=== PATIENT | male | born 1945 | race Caucasian/White ===

== ENCOUNTER 2021-10-11 22:27 | Inpatient (IN) | payer OTHER, MEDICAID, SELFPAY ==
--- NOTE | ~2021-10-11 | XR_ITS ---
EXAMINATION: XR CHEST CLINICAL INFORMATION: Check NG tube placement. COMPARISON: Chest 10/12/2021 TECHNIQUE: Frontal view of the chest was obtained. FINDINGS: The lungs are hypoexpanded but clear. The heart size and pulmonary vascularity is normal. There is a new enteric tube with its tip below the diaphragm in the stomach. No gross bony abnormality is seen. XR/XR chest 1V IMPRESSION: Hypoexpanded lungs without acute process. New enteric tube tip is below the diaphragm in the stomach.
--- NOTE | ~2021-10-11 | XR_ITS ---
EXAMINATION: XR CHEST CLINICAL INFORMATION: Enteric tube placement COMPARISON: Earlier on same day TECHNIQUE: AP portable view of the chest was obtained. FINDINGS: Enteric catheter seen traversing to the stomach with some contact gas within the distal aspect of it. There is an intermittent marker on the distal aspect of the tube. Contrast is seen within the distal catheter and stomach. No acute parenchymal disease is seen. No pneumothorax or pleural effusion. Heart normal size. No evidence of pulmonary edema.. XR/XR chest 1V IMPRESSION: Enteric catheter in place. No significant acute parenchymal disease.
--- NOTE | ~2021-10-11 | CT_ITS ---
EXAMINATION: CT ABDOMEN AND PELVIS WITHOUT CONTRAST CLINICAL INFORMATION: Abdominal pain. Nausea and vomiting. COMPARISON: None TECHNIQUE: Multidetector volumetric imaging was performed from the superior aspect of the liver through the pubic symphysis. Sagittal and coronal reformatted images were obtained on the technologist's workstation. This CT examination was performed using dose optimization techniques as appropriate, variously including the following: *Automated exposure control *Adjustment of mA and/or kV according to patient size (this includes techniques or standardized protocols for targeted exams where dose is matched to indication/reason for exam; i.e. extremities or head) *Use of iterative reconstruction technique DLP: 1287 mGy-cm FINDINGS: LUNG BASES: Basilar atelectasis. Normal heart size. LIVER, GALLBLADDER, AND BILIARY TREE: The liver is normal in size and shape with heterogeneously decreased attenuation. No focal hepatic lesion or biliary ductal dilatation is present. The gallbladder is unremarkable with no evidence of radiopaque gallstones, gallbladder wall thickening, or obvious pericholecystic inflammatory changes. PANCREAS: Mild fatty atrophy with no focal abnormality. SPLEEN: Unremarkable. ADRENAL GLANDS: Unremarkable. KIDNEYS AND URETERS: The kidneys are normal in size, shape, and attenuation. No hydronephrosis, hydroureter, or calculi seen. No perinephric stranding. Simple bilateral renal cysts noted. No follow-up imaging recommended. BLADDER: Unremarkable. GASTROINTESTINAL TRACT: Distended stomach without wall thickening. The proximal small bowel is also dilated. There is a ventral abdominal wall hernia containing a portion of small bowel wall. This is not obstructing. Anastomosis seen in the small bowel of the anterior abdomen, also not the source of an obstruction. There is gradual change in caliber to decompressed small bowel. There is stool throughout the colon with scattered gas in the colon. ABDOMINAL WALL: Scattered foci of gas in the subcutaneous tissues. Ventral abdominal wall hernia containing a portion of the small bowel wall. LYMPH NODES: Normal. VASCULAR: Normal caliber aorta with mild to moderate atherosclerotic calcification. PELVIC VISCERA: The prostate and seminal vesicles are unremarkable. OSSEOUS STRUCTURES: Bilateral total hip arthroplasties without evidence of failure. Moderate degenerative changes of the spine. CT/CT abdomen pelvis wo con IMPRESSION: Distended stomach and proximal small bowel with gradual transition to decompressed small bowel. Gas and stool throughout the colon. This appearance is not convincing for obstruction, although early or partial obstruction is possible. Fleischner guidelines were followed.
--- NOTE | ~2021-10-11 | XR_ITS ---
EXAMINATION: XR ABDOMEN KUB CLINICAL INDICATION: Partial small bowel obstruction. COMPARISON: 10/12/2021 TECHNIQUE: AP view of the abdomen. FINDINGS: Contrast noted throughout the colon. Gas-filled small bowel in the central abdomen, similar in appearance to previous. Enteric tube terminates in the stomach. Contrast in the bladder. Degenerative changes of the spine. Bilateral total hip arthroplasties. XR/XR KUB IMPRESSION: Persistent small bowel gaseous dilatation in the central abdomen. Contrast throughout the colon noted.
--- NOTE | ~2021-10-11 | XR_ITS ---
EXAMINATION: XR CHEST CLINICAL INFORMATION: NG tube placement COMPARISON: Same day and October 12, 2021 TECHNIQUE: AP portable view of the chest was obtained. FINDINGS: There is again noted to be left lower lobe disease. Enteric catheter is seen traversing to the stomach with contrast and [stomach however it appears be looped back on itself lying in the thoracic esophagus. Heart normal size. No evidence of pulmonary edema. No pneumothorax or significant pleural effusion. XR/XR chest 1V IMPRESSION: Enteric catheter seen traversing into the stomach but then appears to be traversing backup into the distal thoracic esophagus. This critical result was discussed with Dr. Olson at 11:16 AM on October 17, 2021 and it was ascertained that the content and urgency of the report was understood at the time of direct communication.
--- NOTE | ~2021-10-11 | FL_ITS ---
EXAMINATION: FL UPPER GI AIR-CONTRAST STUDY AND BARIUM SWALLOW CLINICAL INFORMATION: Abdominal pain, nausea and vomiting. Globus sensation. COMPARISON: CT abdomen and pelvis 10/12/2021. TECHNIQUE: Single contrast GI study was performed with patient lying down. FINDINGS: Patient is unable to stand up. Routine upper GI air-contrast study was performed in semiupright view with patient lying supine. There is normal transition of thin barium from the oral cavity through the pharynx and esophagus and into the stomach without any evidence of obstruction, narrowing or stricture. There is prominent cricoesophageal sphincter present throughout the exam. The course, caliber and the peristalsis of the esophagus are normal. The stomach and the duodenum are distended with slow transition seen through the stomach and the duodenum. Delayed image was obtained through the abdomen and contrast seen within the proximal jejunum. Recommend delayed small bowel follow-through KUB in 4 to 6 hours. FL/FL upper GI w Ba Swallow IMPRESSION: Prominent cricoesophageal sphincter indenting the cervical esophagus. No obstruction. No laryngeal penetration or aspiration. Distended stomach and proximal duodenal and jejunal loops suspicious for at least partial obstruction in the proximal jejunum. There are segments of small bowel narrowing on the previous CT abdomen exam 10/12/2021. Recommend KUB in 4 to 6 hours. FLUOROSCOPY TIME: 2.2 minutes. DOSE AREA PRODUCT: 31.526 Gy-cm2. IMAGES: 41.
--- NOTE | ~2021-10-11 | XR_ITS ---
EXAMINATION: XR CHEST CLINICAL INFORMATION: Shortness of breath COMPARISON: None TECHNIQUE: Frontal view of the chest was obtained. FINDINGS: Lung volumes are low. Streaky opacities of the lung bases favor atelectasis. No pleural effusion or pneumothorax. The cardiomediastinal silhouette is within normal limits. XR/XR chest 1V IMPRESSION: Low lung volumes with basilar atelectasis.
--- NOTE | ~2021-10-11 | XR_ITS ---
EXAMINATION: XR ABDOMEN KUB CLINICAL INDICATION: Partial small bowel obstruction COMPARISON: 10/13/2021 TECHNIQUE: AP view of the abdomen. FINDINGS: There is residual contrast seen in the normal caliber colon and rectum. Loops of small bowel are mildly dilated. No evidence of free air. Patient is status post bilateral hip replacement. XR/XR KUB IMPRESSION: Residual partial small bowel obstruction
--- NOTE | ~2021-10-11 | XR_ITS ---
EXAMINATION: XR ABDOMEN KUB CLINICAL INDICATION: Follow-up to barium study of yesterday in patient with SBO. COMPARISON: October 17, 2021 TECHNIQUE: AP view of the abdomen. FINDINGS: There remains some small bowel distention similar to previous day's study. Since the previous study there has been progression of barium into the colon where it is seen throughout the ascending, transverse, and proximal descending colon. There is a small amount of contrast now seen getting into the sigmoid colon with small amount of contrast overlying the region of the rectosigmoid. XR/XR KUB IMPRESSION: Progression of barium into the colon as described with some persistent distention multiple loops of small bowel.
[2021-10-11 22:38] VITALS: BP 150/88; PULSE 95; O2SAT 95
[2021-10-11 22:41] VITALS: BP 115/68; PULSE 95; RESP 20; TEMP 36.8; O2SAT 90; BMI 41.5
--- NOTE | 2021-10-11 23:37 | ED.NAVMDI ---
HPI - Nausea/Vomiting/Diarrhea General Chief complaint: Nausea/Vomiting/Diarrhea Stated complaint: vomiting Time Seen by Provider: 10/11/21 23:22 History of Present Illness HPI Narrative: Patient is a 76-year-old male with previous abdominal surgery history of prostate cancer presents today with having abdominal pain nausea vomiting since yesterday. Multiple episodes. Patient claims that when he vomits it was very small amount of blood. Patient did not notice any blood in the stool. Has abdominal pain diffuse over the entire abdomen. Patient is unsure what kind of surgery it had. He had had the surgeries and done at [facility]. There is no cough no congestion or upper respiratory symptoms patient claims he has a history of prostate cancer. Not on any blood thinners. No diaphoresis. Feels very weak. Related Data Allergies Allergy/AdvReac Type Severity Reaction Status Date / Time No Known Allergies Allergy Verified 10/11/21 23:34 Review of Systems Review of Systems: Positive generalized malaise weakness Yes all other systems are reviewed and are negative PMFSH Past Medical History Attestation statement: The following information was validated with the patient. Medical History Arthritis Asthma Cerebral palsy Constipation Neoplasm of prostate Social History Social History Advance Directives: No Physical Exam Vital Signs: Vital Signs: Last Vital Signs Temp 98.4 F 10/12/21 05:03 Pulse 65 10/12/21 05:03 Resp 20 10/12/21 05:03 BP 143/76 H 10/12/21 05:03 Pulse Ox 93 10/12/21 05:03 BMI result Body Mass Index 41.5 Appearance: Alert. Oriented X3. No acute distress. Eyes: Pupils equal, round and reactive to light. ENT: Pharynx normal. Neck: Normal inspection. Neck supple. No lymph nodes noted. No crepitus CVS: Normal heart rate and rhythm. Pulses normal. Normal S1 and S2 Respiratory: No respiratory distress. Breath sounds normal. No Wheezing. No rales Abdomen: Soft and nontender. No rigidity. No distention. good BS x4 Skin: Skin warm and dry. Normal skin color. Normal skin turgor. Rectal exam showed brown stool. Extremities: No lower extremity edema. Neurovascular intact to all extremities. No Lacerations. No Rash Neuro: Oriented X 3. No motor deficit. No sensory deficit. Moving all extermities. No slurred speech MDM - Nausea/Vomiting/Diarrhea MDM Narrative Medical decision making narrative: Positive nausea vomiting question bloody stool. CT scan of the abdomen showed distended stomach with gradual taper. Cannot absolutely rule out small-bowel obstruction although if it is it is very early. We will go ahead and give IV fluids. Patient's white count is 17. Elevated BUN and creatinine consistent with dehydration. Will rehydrate will admit. Patient's chest x-ray showed no focal infiltrate. Patient's co COVID test was negative. Medical Records Attestation: I reviewed the patient's medical records. Lab Data Attestation: I reviewed the patient's lab results. Result diagrams: 10/12/21 00:26 10/12/21 00:26 Labs: Lab Results 10/12/21 10/12/21 10/12/21 Range/Units 00:26 00:26 00:26 WBC 17.7 H (4.8-10.8) X10*3/uL RBC 4.25 L (4.60-5.80) X10*6/uL Hgb 13.3 L (14.0-18.0) g/dl Hct 38.9 L (42.0-52.0) % MCV 91.5 (80.0-98.0) fL MCH 31.3 (27.0-33.0) pg MCHC 34.2 (31.0-36.0) g/dl RDW 14.6 (11.0-16.0) % Plt Count 277 (160-400) X10*3/uL MPV 10.4 (9.4-12.4) fL Immature Gran % (Auto) 0.3 (0.0-0.4) % Neut % (Auto) 81.9 H (45-73) % Lymph % (Auto) 10.8 L (20-40) % [place] % (Auto) 6.4 (2-11) % Eos % (Auto) 0.3 (0-4) % Baso % (Auto) 0.3 (0-2) % Lymph # (Auto) 1.9 (1.2-4.9) X10*3/uL [place] # (Auto) 1.1 (0.1-1.2) X10*3/uL Eos # (Auto) 0.1 (0.0-0.4) X10*3/uL Baso # (Auto) 0.1 (0.0-0.2) X10*3/uL Abs Immat Gran (auto) 0.06 H (0.00-0.03) X10*3/uL Absolute Neuts (auto) 14.5 H (2.0-8.3) x10*3/uL Absolute Nucleated RBC 0.000 (0.0-0.012) X10*3/uL Nucleated RBC % (auto) 0.0 (0.0-0.2) /100WBC Sodium 143 (135-145) mmol/L Potassium 4.4 (3.3-5.1) mmol/L Chloride 102 (96-108) mmol/L Carbon Dioxide 27 (22-29) mmol/L Anion Gap 18 (12-20) BUN 44 H (9-16) mg/dL Creatinine 1.99 H (0.5-1.4) mg/dL Estim Creat Clear Calc 36.7 Estimated GFR 33 Random Glucose 166 H (60-115) mg/dL Calcium 9.6 (8.4-10.2) mg/dL Total Bilirubin 0.5 (0.0-1.0) mg/dL Direct Bilirubin 0.2 (0.0-0.5) mg/dL AST 18 (5-37) U/L ALT 22 (0-40) U/L Alkaline Phosphatase 211 H (39-117) U/L Total Protein 7.8 (6.5-8.0) g/dL Albumin 4.2 (3.5-5.0) g/dL Lipase 42 (8-78) U/L COVID-19 ([facility]) Negative (Negative) COVID-19 Clin Com See Note Discharge Plan Discharge Clinical Impression: Moderate nausea and vomiting Patient Disposition: Admitted As Inpatient
[2021-10-12] VITALS (8 sets, daily range): BP systolic 111–162; BP diastolic 67–86; PULSE 65–112; RESP 16–40; TEMP 36.6–36.9; O2SAT 92–96; BMI 41.8
[2021-10-12 00:31] LABS: Eosinophils Percent Auto 0.3 % (0-4); Hemoglobin 13.3 g/dl (14.0-18.0); Mean Platelet Volume 10.4 fL (9.4-12.4); PLT CLUMP 1; Red Cell Distribution Width 14.6 % (11.0-16.0); SCAN SMEAR FLAG 1
[2021-10-12 00:33] LABS: Basophils Absolute Auto 0.1 X10*3/uL (0.0-0.2); Basophils Percent Auto 0.3 % (0-2); Eosinophils Absolute Auto 0.1 X10*3/uL (0.0-0.4); Hematocrit 38.9 % (42.0-52.0); Imm Gran Abs Auto 0.06 X10*3/uL (0.00-0.03); Imm Gran Pct Auto 0.3 % (0.0-0.4); Lymphocytes Absolute Auto 1.9 X10*3/uL (1.2-4.9); Lymphocytes Percent Auto 10.8 % (20-40); MANUAL DIFF FLAG NO; Mean Corpuscular HGB Conc 34.2 g/dl (31.0-36.0); Mean Corpuscular Hemoglobin 31.3 pg (27.0-33.0); Mean Corpuscular Volume 91.5 fL (80.0-98.0); Monocytes Absolute Auto 1.1 X10*3/uL (0.1-1.2); Monocytes Percent Auto 6.4 % (2-11); Neutrophils Absolute Auto 14.5 x10*3/uL (2.0-8.3); Neutrophils Percent Auto 81.9 % (45-73); Red Blood Count 4.25 X10*6/uL (4.60-5.80); White Blood Count 17.7 X10*3/uL (4.8-10.8)
--- NOTE | 2021-10-12 00:39 | PC.NURSE ---
pt nausea and vomiting clear but on the towel was bile brown. abd pain to rmq with n/v
[2021-10-12] MEDS: 0.9 % Sodium Chloride 1,000 ML 999 ML IV (00:40)
[2021-10-12 00:46] LABS: COVID-19 Test Negative (Negative)
[2021-10-12 00:49] LABS: Platelet Count 277 X10*3/uL (160-400)
[2021-10-12 00:53] LABS: Alanine Aminotransferase 22 U/L (0-40); Albumin Level 4.2 g/dL (3.5-5.0); Alkaline Phosphatase 211 U/L (39-117); Anion Gap 18 (12-20); Aspartate Amino Transferase 18 U/L (5-37); Bilirubin Direct 0.2 mg/dL (0.0-0.5); Bilirubin Total 0.5 mg/dL (0.0-1.0); Blood Urea Nitrogen 44 mg/dL (9-16); Calcium 9.6 mg/dL (8.4-10.2); Carbon Dioxide 27 mmol/L (22-29); Chloride 102 mmol/L (96-108); Creatinine Clr Calc Pharmacy 36.7; Estimated Glomerular Filt Rate 33; Glucose Random 166 mg/dL (60-115); Lipase 42 U/L (8-78); Potassium 4.4 mmol/L (3.3-5.1); Sodium 143 mmol/L (135-145); Total Protein 7.8 g/dL (6.5-8.0)
[2021-10-12] MEDS: ondansetron HCL 4 MG/2 ML VIAL IVPUSH ×3 (01:21→11:42)
--- NOTE | 2021-10-12 01:22 | PC.NURSE ---
pt is back from ct and is now sleeping. isaac given.
--- NOTE | 2021-10-12 02:09 | PM.IMHP ---
History of Present Illness Date of Service: 10/12/21 Chief Complaint: n/v/abd pain This 76-year-old male with past medical history of prostate cancer, hypertension, CKD, asthma, arthritis, cerebral palsy, and chronic constipation who presents to the hospital with complaints of abdominal pain nausea vomiting. Patient reports his symptoms started yesterday, the abdominal pain is diffuse, 10/10, has constipation last BM yesterday, has Nausea and vomiting, low oral intake, no fever or chills, denies any chest pain, no shortness of breath, reports urinary retention with no urgency or dysuria as well as no frequency. Patient has no numbness tingling, no headache or change in vision, and no lower extremity edema. He reports that he had a history of blockage in the colon, had leaking in the colon but unaware if he had colectomy. He has an abdominal hernia On arrival to the ED patient hemodynamically stable Labs are significant for WBC count 17.7, hemoglobin 13.3, hematocrit 38.9, creatinine of 1.99, BUN of 44, no previous for comparison. Alk-phos of 211, UA negative. Abdomen pelvic CT shows test and is stomach and proximal small bowel with gradual transition to decompressed small bowel. Gas and stool throughout the colon, this appearance not convincing for obstruction. Early or partial obstruction is possible Review of Systems Review of Systems: Yes all other systems are reviewed and are negative [facility] Medical History (Updated 10/12/21 @ 07:05 by Mike Mera MD) Arthritis Asthma Cerebral palsy CHF (congestive heart failure) CKD (chronic kidney disease) Constipation History of small bowel obstruction Hypertension Neoplasm of prostate Family History (Updated 10/12/21 @ 07:02 by Mike Mera MD) Other No family history of coronary artery disease Surgical History (Updated 10/12/21 @ 07:02 by Mike Mera MD) H/O abdominal surgery Social History (Updated 10/12/21 @ 07:03 by Mike Mera MD) Alcohol intake: current Patient Tobacco Use Status: Never used Tobacco Use of substances other than those prescribed or required for medical reasons: No Advance Directives: No Meds Allergies Allergy/AdvReac Type Severity Reaction Status Date / Time No Known Allergies Allergy Verified 10/11/21 23:34 Physical Exam Vital Signs and Narrative: Vital Signs: Last Vital Signs Temp 98 F 10/12/21 00:43 Pulse 94 10/12/21 00:43 Resp 16 10/12/21 00:43 BP 111/76 10/12/21 00:43 Pulse Ox 92 10/12/21 00:43 BMI result Body Mass Index 41.5 Const: General: cooperative and no acute distress Orientation/consciousness: patient oriented x3 Eyes: General: appearance normal, both eyes and all related structures Pupils: Equal, round and reactive pupils present Resp: Effort & Inspection: normal respiratory effort Auscultation: clear to auscultation bilaterally Cardio: Rate: regular rate Rhythm: regular rhythm GI: Other: Large abdominal hernia, no rebound or guarding, no evidence of strangulation on exam Palpation (GI): Soft to palpation Skin: General skin exam: no rashes or lesions noted Neuro: General: patient oriented x3 Cranial nerves: Yes Equal, round and reactive pupils present Cognition (Neuro): normal cognition Extrem: General: Yes normal to inspection and Yes no pedal edema Results Labs CBC and Chem 7: 10/12/21 06:00 10/12/21 00:26 Labs: Laboratory Results - last 24 hr 10/12/21 10/12/21 10/12/21 00:26 00:26 00:26 MCV 91.5 MCH 31.3 MCHC 34.2 RDW 14.6 Plt Count 277 MPV 10.4 Immature Gran % (Auto) 0.3 Neut % (Auto) 81.9 H Lymph % (Auto) 10.8 L [place] % (Auto) 6.4 Eos % (Auto) 0.3 Baso % (Auto) 0.3 Lymph # (Auto) 1.9 [place] # (Auto) 1.1 Eos # (Auto) 0.1 Baso # (Auto) 0.1 Abs Immat Gran (auto) 0.06 H Absolute Neuts (auto) 14.5 H Absolute Nucleated RBC 0.000 Nucleated RBC % (auto) 0.0 Anion Gap 18 Creatinine 1.99 H Estim Creat Clear Calc 36.7 Estimated GFR 33 Random Glucose 166 H Calcium 9.6 Total Bilirubin 0.5 Direct Bilirubin 0.2 AST 18 ALT 22 Alkaline Phosphatase 211 H Total Protein 7.8 Albumin 4.2 Lipase 42 COVID-19 ([facility]) Negative COVID-19 Clin Com See Note Imaging Radiologist's Impressions: Impressions Chest X-Ray 10/12/21 01:00 IMPRESSION: Low lung volumes with basilar atelectasis. Abdomen/Pelvis CT 10/12/21 01:15 IMPRESSION: Distended stomach and proximal small bowel with gradual transition to decompressed small bowel. Gas and stool throughout the colon. This appearance is not convincing for obstruction, although early or partial obstruction is possible. Fleischner guidelines were followed. Assessment and Plan (1) Moderate nausea and vomiting: Status: Acute (2) Abdominal pain: Status: Acute (3) Partial small bowel obstruction: Status: Acute (4) Abdominal wall hernia: Status: Acute (5) Acute kidney injury superimposed on CKD: Status: Acute Plan 76-year-old male with past medical history hypertension, CHF, CKD, prostate cancer presents to the hospital with complaints of abdominal pain and constipation nausea and vomiting # abdominal pain - likely multifactorial secondary to constipation as well as partial small-bowel obstruction - CT evidence of severe constipation showing gas and stool throughout the colon. As well as distended stomach and proximal small bowel with gradual transition concerning for early or partial obstruction - patient also has abdominal wall hernia, with some small bowel in the hernia with no evidence of strangulation - at this time will place on bowel rest, IV fluids, Bowek regimen with miralax - consult general surgery # JUJU on CKD - likely pre-renal - will start iv fluids - follow BMP # N/V - likely 2/2 partial small bowel - supportive measure # hx of CHF - No evidence of volume overload - pending med reconciliation DVT ppx: Lovenox Quality Stroke Does the patient have a stroke diagnosis?: No VTE Prior VTE?: No VTE Risk Level:: Medical - moderate - high VTE Device Contraindication: Treatment Not Indicated VTE Drug Contraindication: N/A - Med Ordered
[2021-10-12] MEDS: Morphine Sulfate 4 MG/ML CARTRIDGE IVPUSH ×4 (04:37→23:12)
[2021-10-12 05:49] LABS: Appearance Urine CLEAR; Color Urine YELLOW; Glucose Urine UA NEG (NEG); Leukocyte Esterase Urine NEG (NEG); Nitrite Urine NEG (NEG); Specific Gravity - Urine >= 1.030 (1.005-1.025); UACC Culture Trigger NO; Urine Blood NEG (NEG); Urine Ketones NEG (NEG); Urine Protein 2+ MG/DL (NEG-TRACE)
[2021-10-12 05:56] LABS: Bacteria Urine 2+ /LPF; Hyaline Casts Urine 0-2 /LPF; Mucus Urine 2+ /LPF; RBC Urine 0 /HPF (0); Squamous Epithelial Cell Urine 2+ /LPF
[2021-10-12] MEDS: Lactated Ringers 1,000 ML 100 ML IVCONT ×3 (06:28→17:50)
[2021-10-12] MEDS: Enoxaparin Sodium 40 MG/0.4 ML SYRINGE SUBCUT (06:33)
[2021-10-12 06:36] LABS: MANUAL DIFF FLAG NO
[2021-10-12 06:48] LABS: Basophils Absolute Auto 0.1 X10*3/uL (0.0-0.2); Basophils Percent Auto 0.3 % (0-2); Eosinophils Percent Auto 0.1 % (0-4); Hematocrit 38.5 % (42.0-52.0); Hemoglobin 12.9 g/dl (14.0-18.0); Imm Gran Abs Auto 0.08 X10*3/uL (0.00-0.03); Imm Gran Pct Auto 0.5 % (0.0-0.4); Lymphocytes Absolute Auto 1.4 X10*3/uL (1.2-4.9); Lymphocytes Percent Auto 8.3 % (20-40); Mean Corpuscular HGB Conc 33.5 g/dl (31.0-36.0); Mean Corpuscular Hemoglobin 31.1 pg (27.0-33.0); Mean Corpuscular Volume 92.8 fL (80.0-98.0); Mean Platelet Volume 10.8 fL (9.4-12.4); Monocytes Absolute Auto 1.1 X10*3/uL (0.1-1.2); Monocytes Percent Auto 6.8 % (2-11); Neutrophils Absolute Auto 14.1 x10*3/uL (2.0-8.3); Platelet Count 284 X10*3/uL (160-400); Red Blood Count 4.15 X10*6/uL (4.60-5.80); Red Cell Distribution Width 14.7 % (11.0-16.0); White Blood Count 16.8 X10*3/uL (4.8-10.8)
[2021-10-12 06:57] LABS: Anion Gap 18 (12-20); Blood Urea Nitrogen 44 mg/dL (9-16); Carbon Dioxide 27 mmol/L (22-29); Chloride 102 mmol/L (96-108); Creatinine Clr Calc Pharmacy 39.5; Estimated Glomerular Filt Rate 36; Glucose Random 192 mg/dL (60-115); Sodium 143 mmol/L (135-145)
[2021-10-12] MEDS: polyethylene glycoL 3350 17 GM POWD.PACK PO (07:41)
--- NOTE | 2021-10-12 09:22 | P.CONGS_ITS ---
History of Present Illness Consult details Consult date: 10/12/21 Narrative: 76-year-old male patient with previous history of small-bowel obstructions and multiple previous abdominal surgeries presenting today with diffuse abdominal pain nausea and vomiting. Patient has a prior history of cerebral palsy, prostate cancer, hypertension, asthma, chronic kidney disease, and chronic constipation. Presents to the emergency department for further evaluation. Patient was found to be diffusely tender throughout the abdomen. CT abdomen and pelvis revealed a large distended stomach and dilated small bowel with a transition point to decompressed distal small bowel. Findings are suggestive of a partial small-bowel obstruction. Review of Systems Constitutional: Constitutional: Reports body ache(s), Denies chills, Reports lethargy and Reports malaise Cardiovascular: Cardiovascular: Reports Abdominal Distension, Reports Epigast danelle Pain, Denies irregular heart rhythm and Denies orthopnea Respiratory: Respiratory: Reports no additional respiratory complaints Gastrointestinal: Gastrointestinal: Reports as per HPI, Reports abdominal pain, Denies hematochezia, Reports constipation, Reports nausea, Reports vomiting and Denies hematemesis Musculoskeletal: Musculoskeletal: Reports muscle weakness PMFSH Past Medical History Medical History Arthritis Asthma Cerebral palsy CHF (congestive heart failure) CKD (chronic kidney disease) Constipation History of small bowel obstruction Hypertension Neoplasm of prostate Family History Family History Other No family history of coronary artery disease Surgical History Surgical History H/O abdominal surgery Social History Social History Alcohol intake: current Patient Tobacco Use Status: Never used Tobacco Use of substances other than those prescribed or required for medical reasons: No Advance Directives: No Meds Allergies Allergy/AdvReac Type Severity Reaction Status Date / Time No Known Allergies Allergy Verified 10/11/21 23:34 Active Medications: Current Medications Acetaminophen (Acetaminophen Supp 650 Mg Supp.Rect) 650 mg [place] Q6H PRN PRN Reason: Pain, Mild (Pain Scale 1-3) Enoxaparin Sodium (Enoxaparin Sodium 40 Mg/0.4 Ml Syringe) 40 mg SUBCUT Q24H [facility] Last Admin: 10/12/21 06:33 Dose: 40 mg Documented by: Lactated Ringer's (Lr) 1,000 mls @ 100 mls/hr IVCONT .Q10H [facility] Last Admin: 10/12/21 06:28 Dose: 100 mls/hr Documented by: Morphine Sulfate (Morphine Sulfate 4 Mg/Ml Cartridge) 4 mg IVPUSH Q4H PRN; Protocol PRN Reason: Pain, Severe (Pain Scale 7-10) Last Admin: 10/12/21 04:37 Dose: 4 mg Documented by: Ondansetron HCl (Ondansetron Hcl 4 Mg/2 Ml Vial) 4 mg IVPUSH Q8H PRN PRN Reason: Nausea and Vomiting Last Admin: 10/12/21 04:37 Dose: 4 mg Documented by: Pharmacy Consult (Consult Rx Perform Med Rec) 1 each MISCELLANE ONCE PRN PRN Reason: Consult order Polyethylene Glycol (Polyethylene Glycol 3350 17 Gm Powd.Pack) 17 gm PO DAILY [facility] Last Admin: 10/12/21 08:00 Dose: Not Given Documented by: Sodium Chloride (0.9 % Sodium Chloride Flush 3 Ml Syringe) 3 ml IVFLUSH QSHIFT [facility] Last Admin: 10/12/21 07:59 Dose: Not Given Documented by: Home Medications Medication Instructions Recorded Confirmed Last Taken Type albuterol sulfate 90 mcg/actuation 2 puff INHALATION Q4H PRN 10/12/21 10/12/21 Unknown History aerosol inhaler allopurinol 300 mg tablet 1 tab PO DAILY 10/12/21 10/12/21 Unknown History bisacodyl 5 mg tablet 5 mg PO Q48H 10/12/21 10/12/21 Unknown History cholecalciferol (vitamin D3) 25 25 mcg PO BID 10/12/21 10/12/21 Unknown History mcg (1,000 unit) tablet diltiazem HCl 120 mg 1 cap PO DAILY 10/12/21 10/12/21 Unknown History capsule,extended release 24 hr docusate sodium 100 mg capsule 100 mg PO TID PRN 10/12/21 10/12/21 Unknown History doxazosin 4 mg tablet 1 tab PO DAILY 10/12/21 10/12/21 Unknown History fentanyl 25 mcg/hr transdermal 1 patch TOPICAL Q3D 10/12/21 10/12/21 10/09/21 History patch furosemide 20 mg tablet 1 tab PO DAILY 10/12/21 10/12/21 Unknown History gabapentin 100 mg capsule 1 cap PO DAILY 10/12/21 10/12/21 Unknown History heparin (porcine) 5,000 unit/mL 5,000 unit SUBCUT Q12H 10/12/21 10/12/21 Unknown History injection solution lidocaine 5 % topical cream 1 appl TOPICAL QID PRN 10/12/21 10/12/21 Unknown History (Hemorrhoidal Relief) losartan 50 mg tablet 1 tab PO DAILY 10/12/21 10/12/21 Unknown History metoprolol tartrate 50 mg tablet 1 tab PO BID 10/12/21 10/12/21 Unknown History multivitamin 1 tab PO DAILY 10/12/21 10/12/21 Unknown History naloxegol 25 mg tablet (Movantik) 1 tab PO DAILY 10/12/21 10/12/21 Unknown History omeprazole 40 mg capsule,delayed 1 cap PO DAILY 10/12/21 10/12/21 Unknown History release oxycodone 5 mg tablet 5 mg PO Q12H PRN 10/12/21 10/12/21 Unknown History polyethylene glycol 3350 17 17 g PO Q8H PRN 10/12/21 10/12/21 Unknown History gram/dose oral powder pravastatin 10 mg tablet 1 tab PO BEDTIME 10/12/21 10/12/21 Unknown History sennosides 8.6 mg tablet (Senna 17.2 mg PO DAILY 10/12/21 10/12/21 Unknown History Laxative) tizanidine 2 mg tablet 1 tab PO BEDTIME 10/12/21 10/12/21 Unknown History trazodone 50 mg tablet 25 mg PO BID PRN 10/12/21 10/12/21 Unknown History Physical Exam Vital Signs: Vital Signs: Last Vital Signs Temp 98.4 F 10/12/21 05:03 Pulse 106 H 10/12/21 07:43 Resp 18 10/12/21 07:43 BP 140/85 H 10/12/21 07:43 Pulse Ox 94 10/12/21 07:43 BMI result Body Mass Index 41.5 Const: General: alert and awake Nutritional Appearance: well nourished Limitations: wheelchair HENMT: Head: Yes normocephalic and Yes atraumatic Ears: hearing grossly normal bilaterally Resp: Effort & Inspection: normal respiratory effort, no audible wheezes, no cough and no respiratory distress GI: Inspection: Yes incision (Large midline incision) Palpation (GI): Soft to palpation, Tenderness to palpation present (GI) in the LLQ, in the RLQ, in the LUQ and in the RUQ, no guarding, not rigid and Hernia present other ( Incisional) Percussion: Yes tympanic to percussion Skin: General skin exam: no rashes or lesions noted Results Labs Result diagrams: 10/12/21 06:00 10/12/21 06:00 Labs: Abnormal lab results 10/12/21 10/12/21 10/12/21 Range/Units 00:26 00:26 05:42 WBC 17.7 H (4.8-10.8) X10*3/uL RBC 4.25 L (4.60-5.80) X10*6/uL Hgb 13.3 L (14.0-18.0) g/dl Hct 38.9 L (42.0-52.0) % Immature Gran % (Auto) (0.0-0.4) % Neut % (Auto) 81.9 H (45-73) % Lymph % (Auto) 10.8 L (20-40) % Abs Immat Gran (auto) 0.06 H (0.00-0.03) X10*3/uL Absolute Neuts (auto) 14.5 H (2.0-8.3) x10*3/uL BUN 44 H (9-16) mg/dL Creatinine 1.99 H (0.5-1.4) mg/dL Random Glucose 166 H (60-115) mg/dL Alkaline Phosphatase 211 H (39-117) U/L Ur Specific [place] >= 1.030 H (1.005-1.025) Urine Protein 2+ H (NEG-TRACE) MG/DL 10/12/21 10/12/21 Range/Units 06:00 06:00 WBC 16.8 H (4.8-10.8) X10*3/uL RBC 4.15 L (4.60-5.80) X10*6/uL Hgb 12.9 L (14.0-18.0) g/dl Hct 38.5 L (42.0-52.0) % Immature Gran % (Auto) 0.5 H (0.0-0.4) % Neut % (Auto) 84.0 H (45-73) % Lymph % (Auto) 8.3 L (20-40) % Abs Immat Gran (auto) 0.08 H (0.00-0.03) X10*3/uL Absolute Neuts (auto) 14.1 H (2.0-8.3) x10*3/uL BUN 44 H (9-16) mg/dL Creatinine 1.85 H (0.5-1.4) mg/dL Random Glucose 192 H (60-115) mg/dL Alkaline Phosphatase (39-117) U/L Ur Specific [place] (1.005-1.025) Urine Protein (NEG-TRACE) MG/DL Short CBC 10/12/21 10/12/21 Range/Units 00:26 06:00 WBC 17.7 H 16.8 H (4.8-10.8) X10*3/uL Hgb 13.3 L 12.9 L (14.0-18.0) g/dl Hct 38.9 L 38.5 L (42.0-52.0) % Plt Count 277 284 (160-400) X10*3/uL BMP 10/12/21 10/12/21 00:26 06:00 Sodium 143 143 Potassium 4.4 4.0 Chloride 102 102 Carbon Dioxide 27 27 BUN 44 H 44 H Creatinine 1.99 H 1.85 H Calcium 9.6 9.0 D Liver Function 10/12/21 Range/Units 00:26 Total Bilirubin 0.5 (0.0-1.0) mg/dL Direct Bilirubin 0.2 (0.0-0.5) mg/dL AST 18 (5-37) U/L ALT 22 (0-40) U/L Alkaline Phosphatase 211 H (39-117) U/L Albumin 4.2 (3.5-5.0) g/dL Urine 10/12/21 Range/Units 05:42 Urine Color YELLOW Urine Appearance CLEAR Urine pH 6.0 (5.0-8.0) Ur Specific [place] >= 1.030 H (1.005-1.025) Urine Protein 2+ H (NEG-TRACE) MG/DL Urine Glucose (UA) NEG (NEG) MG/DL All other labs normal. Assessment and Plan (1) Partial small bowel obstruction: Status: Acute (2) Abdominal wall hernia: Status: Acute Plan 76-year-old male patient with a previous history of multiple abdominal surgeries presenting today with abdominal distension, nausea, vomiting, and diffuse abdominal pain. On examination the patient is obviously distended with a tympanitic abdomen suggestive of a bowel obstruction. Review of CT does reveal a large distended stomach and a gradual transition to decompressed small bowel. Findings are consistent with a partial small-bowel obstruction. Patient needs nasogastric decompression in the size of his stomach. Will monitor the NG output and return of bowel function. Non operative management is preferred ho wever if no improvement or symptoms worsen enterolysis may be required. Patient expressed understanding and agrees with the plan. Procedures Date of Service Date of Service: 10/12/21
[2021-10-12 12:41] LABS: OBS Int Ctl Valid YES; OBS1 NEGATIVE (NEGATIVE)
--- NOTE | 2021-10-12 13:43 | PM.EVENT ---
Event Note Date of Service: 10/12/21 Event Note: Patient seen and examined. The 76-year-old male with a history of prostate cancer along with multiple abdominal surgeries presents with abdominal pain and distention over the last 48hrs. workup consistent with partial/early small bowel obstruction. Seen by surgery; NGT decompression begun With good response. Chest: Clear to auscultation all magana CV: no S4; positive S1-S2; no S3 murmurs rubs or gallops ABD: distended tympanitic with quiet bowel sounds EXT: no edema Plan as ordered; surgery follow
--- NOTE | 2021-10-12 15:43 | MHC.CM.PN ---
CM CALLED PTS POA/HCP, DUGLAS STEWARD ([phone]) WHO CONFIRMS THE PT IS A LTC RESIDENT OF [facility] HE REPORTS THE PT PRIMARILY USES A WHEEL CHAIR AT THIS TIME PT HAS A POA AND HCP ON FILE PTS PCP IS [facility] PTS MEDICARE RIGHTS WERE DELIVERED, DUGLAS DECLINES TO RECEIVE A COPY. ORIGINAL LEFT AT PTS BEDSIDE, COPY SENT TO MEDICAL RECORDS CURRENT DC PLAN IS RETURN TO [facility] VIA BLS DUGLAS ALSO ASKED THAT HE RECEIVE A CALL FROM PTS MD. HE SAYS HE WOULD LIKE A MEDICAL UPDATE BUT IS ALSO CONCERNED THAT THE PT TENS TO GET VERY NERVOUS WHEN HE SPEAKS TO MD'S. HE REPORTS HE TENDS TO THINK THE WORST IS HAPPENING AND DOES NOT CLEARLY HEAR EVERYTHING THE MD IS SAYING DUGLAS ALSO ASKS THAT HE BE CONTACTED IF THERE WILL BE ANY SURGERIES. REQUEST FORWARDED TO HOSPITALIST
[2021-10-13] MEDS: Enoxaparin Sodium 40 MG/0.4 ML SYRINGE SUBCUT (02:16)
[2021-10-13 03:41] VITALS: BP 137/87; PULSE 103; RESP 17; TEMP 36.6; O2SAT 94
[2021-10-13] MEDS: Lactated Ringers 1,000 ML 100 ML IVCONT (04:47)
[2021-10-13 06:19] LABS: MANUAL DIFF FLAG NO
[2021-10-13 06:25] LABS: Basophils Absolute Auto 0.1 X10*3/uL (0.0-0.2); Basophils Percent Auto 0.4 % (0-2); Eosinophils Absolute Auto 0.2 X10*3/uL (0.0-0.4); Eosinophils Percent Auto 1.6 % (0-4); Hematocrit 39.7 % (42.0-52.0); Hemoglobin 12.7 g/dl (14.0-18.0); Imm Gran Pct Auto 0.7 % (0.0-0.4); Lymphocytes Percent Auto 19.4 % (20-40); Mean Corpuscular Hemoglobin 30.5 pg (27.0-33.0); Mean Corpuscular Volume 95.4 fL (80.0-98.0); Mean Platelet Volume 10.5 fL (9.4-12.4); Monocytes Absolute Auto 1.2 X10*3/uL (0.1-1.2); Monocytes Percent Auto 7.7 % (2-11); Neutrophils Absolute Auto 10.7 x10*3/uL (2.0-8.3); Neutrophils Percent Auto 70.2 % (45-73); Platelet Count 269 X10*3/uL (160-400); Red Blood Count 4.16 X10*6/uL (4.60-5.80); Red Cell Distribution Width 14.9 % (11.0-16.0); White Blood Count 15.2 X10*3/uL (4.8-10.8)
[2021-10-13 07:01] VITALS: BP 146/63; PULSE 110; RESP 20; TEMP 36.1; O2SAT 94
[2021-10-13 07:02] LABS: Alanine Aminotransferase 17 U/L (0-40); Albumin Level 3.9 g/dL (3.5-5.0); Alkaline Phosphatase 181 U/L (39-117); Anion Gap 18 (12-20); Aspartate Amino Transferase 15 U/L (5-37); Bilirubin Total 0.6 mg/dL (0.0-1.0); Blood Urea Nitrogen 47 mg/dL (9-16); Calcium 9.4 mg/dL (8.4-10.2); Carbon Dioxide 33 mmol/L (22-29); Chloride 101 mmol/L (96-108); Creatinine Clr Calc Pharmacy 36.8; Estimated Glomerular Filt Rate 33; Glucose Fasting 155 mg/dL (60-99); Potassium 3.9 mmol/L (3.3-5.1); Sodium 148 mmol/L (135-145); Total Protein 7.2 g/dL (6.5-8.0)
[2021-10-13] MEDS: Morphine Sulfate 4 MG/ML CARTRIDGE IVPUSH (08:50)
[2021-10-13] MEDS: Sodium Chloride 0.45 % 1,000 ML 100 ML IVCONT (09:01)
[2021-10-13 11:06] VITALS: BP 170/86; PULSE 108; RESP 18; TEMP 36.1; O2SAT 92
--- NOTE | 2021-10-13 12:00 | HO.PM.IMPN ---
Subjective Subjective Date of Service: 10/13/21 Interval History: remains tolerant of NG tube. No acute events overnight Review of Systems denies chest pain Denies shortness of breath Admits to improved belly pain; some discomfort from NG tube Physical Exam Vital Signs: Vital Signs: Last Vital Signs Temp 97 F 10/13/21 11:06 Pulse 108 H 10/13/21 11:06 Resp 18 10/13/21 11:06 BP 170/86 H 10/13/21 11:06 Pulse Ox 92 10/13/21 11:06 BMI result Body Mass Index 41.8 Const: Other: wake alert oriented x3 no acute distress Resp: Other: clear to auscultation bilaterally no rales rhonchi wheezes Cardio: Other: no S4; positive S1-S2; no S3 murmurs rubs gallops GI: Other: less distended; mildly tender diffusely Extrem: Other: no edema Objective Data Active Medications Acetaminophen (Acetaminophen Supp 650 Mg Supp.Rect) 650 mg [place] Q6H PRN PRN Reason: Pain, Mild (Pain Scale 1-3) Enoxaparin Sodium (Enoxaparin Sodium 40 Mg/0.4 Ml Syringe) 40 mg SUBCUT Q24H [facility] Last Admin: 10/13/21 02:16 Dose: 40 mg Documented by: NEVAEH Hydromorphone HCl (Hydromorphone Hcl 1 Mg/Ml Syringe) 1 mg IVPUSH Q4H PRN; Protocol PRN Reason: Pain, Severe (Pain Scale 7-10) Sodium Chloride () 1,000 mls @ 100 mls/hr IVCONT .Q10H [facility] Last Admin: 10/13/21 09:01 Dose: 100 mls/hr Documented by: ANMOL Ondansetron HCl (Ondansetron Hcl 4 Mg/2 Ml Vial) 4 mg IVPUSH Q8H PRN PRN Reason: Nausea and Vomiting Last Admin: 10/12/21 11:42 Dose: 4 mg Documented by: JOURDAN Pharmacy Consult (Consult Rx Perform Med Rec) 1 each MISCELLANE ONCE PRN PRN Reason: Consult order Polyethylene Glycol (Polyethylene Glycol 3350 17 Gm Powd.Pack) 17 gm PO DAILY [facility] Last Admin: 10/13/21 09:31 Dose: Not Given Documented by: ANMOL Non-Admin Reason: NPO Sodium Chloride (0.9 % Sodium Chloride Flush 3 Ml Syringe) 3 ml IVFLUSH QSHIFT [facility] Last Admin: 10/13/21 08:49 Dose: Not Given Documented by: ANMOL Non-Admin Reason: IV Running Labs CBC & Chem 7: 10/13/21 05:55 10/13/21 05:55 Labs: Laboratory Results - last 24 hr 10/12/21 10/13/21 10/13/21 Unknown 05:55 05:55 MCV 95.4 MCH 30.5 MCHC 32.0 RDW 14.9 Plt Count 269 MPV 10.5 Immature Gran % (Auto) 0.7 H Neut % (Auto) 70.2 Lymph % (Auto) 19.4 L [place] % (Auto) 7.7 Eos % (Auto) 1.6 Baso % (Auto) 0.4 Lymph # (Auto) 3.0 [place] # (Auto) 1.2 Eos # (Auto) 0.2 Baso # (Auto) 0.1 Abs Immat Gran (auto) 0.10 H Absolute Neuts (auto) 10.7 H Absolute Nucleated RBC 0.000 Nucleated RBC % (auto) 0.0 Anion Gap 18 Estim Creat Clear Calc 36.8 Estimated GFR 33 Fasting Glucose 155 H Calcium 9.4 Total Bilirubin 0.6 AST 15 ALT 17 Alkaline Phosphatase 181 H Total Protein 7.2 Albumin 3.9 Stool Occult Blood NEGATIVE Assessment and Plan (1) Partial small bowel obstruction: Status: Acute (2) Acute kidney injury superimposed on CKD: Status: Acute Plan 76-year-old male with past medical history hypertension, CHF, CKD, prostate cancer presents to the hospital with complaints of abdominal pain and constipation nausea and vomiting 1.PSBO - continues with NG tube output - abdomen less distended; continue decompression - pain meds for comfort 2.Hypernatremeia( calculated free water deficit 3 L) -D51/2NS repletion -follow renals/divalents 3. CKD -as per #2 Lovenox/Full Code Quality Stroke Does the patient have a stroke diagnosis?: No VTE Prior VTE?: No VTE Risk Level:: Medical - moderate - high VTE Device Contraindication: Treatment Not Indicated VTE Drug Contraindication: N/A - Med Ordered
[2021-10-13] MEDS: HYDROmorphone HCl 1 MG/ML SYRINGE IVPUSH ×3 (13:10→23:28)
[2021-10-13] MEDS: Dextrose 5 % and 0.45 % NaCl 1,000 ML 100 ML IVCONT ×2 (13:48→23:11)
--- NOTE | 2021-10-13 13:58 | P.PNGS_ITS ---
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 Objective Data Active Medications Acetaminophen (Acetaminophen Supp 650 Mg Supp.Rect) 650 mg [place] Q6H PRN PRN Reason: Pain, Mild (Pain Scale 1-3) Enoxaparin Sodium (Enoxaparin Sodium 40 Mg/0.4 Ml Syringe) 40 mg SUBCUT Q24H [facility] Last Admin: 10/13/21 02:16 Dose: 40 mg Documented by: NEVAEH Hydromorphone HCl (Hydromorphone Hcl 1 Mg/Ml Syringe) 1 mg IVPUSH Q4H PRN; Protocol PRN Reason: Pain, Severe (Pain Scale 7-10) Last Admin: 10/13/21 13:10 Dose: 1 mg Documented by: ANMOL Dextrose/Sodium Chloride (D51/2ns) 1,000 mls @ 100 mls/hr IVCONT .Q10H [facility] Last Admin: 10/13/21 13:48 Dose: 100 mls/hr Documented by: ANMOL Ondansetron HCl (Ondansetron Hcl 4 Mg/2 Ml Vial) 4 mg IVPUSH Q8H PRN PRN Reason: Nausea and Vomiting Last Admin: 10/12/21 11:42 Dose: 4 mg Documented by: JOURDAN Pharmacy Consult (Consult Rx Perform Med Rec) 1 each MISCELLANE ONCE PRN PRN Reason: Consult order Polyethylene Glycol (Polyethylene Glycol 3350 17 Gm Powd.Pack) 17 gm PO DAILY [facility] Last Admin: 10/13/21 09:31 Dose: Not Given Documented by: ANMOL Non-Admin Reason: NPO Sodium Chloride (0.9 % Sodium Chloride Flush 3 Ml Syringe) 3 ml IVFLUSH QSHIFT [facility] Last Admin: 10/13/21 08:49 Dose: Not Given Documented by: ANMOL Non-Admin Reason: IV Running Labs CBC & Chem 7: 10/13/21 05:55 10/13/21 05:55 Labs: Laboratory Results - last 24 hr 10/13/21 10/13/21 05:55 05:55 MCV 95.4 MCH 30.5 MCHC 32.0 RDW 14.9 Plt Count 269 MPV 10.5 Immature Gran % (Auto) 0.7 H Neut % (Auto) 70.2 Lymph % (Auto) 19.4 L [place] % (Auto) 7.7 Eos % (Auto) 1.6 Baso % (Auto) 0.4 Lymph # (Auto) 3.0 [place] # (Auto) 1.2 Eos # (Auto) 0.2 Baso # (Auto) 0.1 Abs Immat Gran (auto) 0.10 H Absolute Neuts (auto) 10.7 H Absolute Nucleated RBC 0.000 Nucleated RBC % (auto) 0.0 Anion Gap 18 Estim Creat Clear Calc 36.8 Estimated GFR 33 Fasting Glucose 155 H Calcium 9.4 Total Bilirubin 0.6 AST 15 ALT 17 Alkaline Phosphatase 181 H Total Protein 7.2 Albumin 3.9 Procedures Date of Service Date of Service: 10/13/21 Progress Note: A&P Assessment and plan (1) Partial small bowel obstruction: Status: Acute Assessment and Plan: 76 year old male with psbo = prob secondary to adhesions - has had lots of previous surgery - hopeing will do well with conservative care ct showing lots of stool in colon and pt not having a BM - will do dulcolax suppository. also - do gastrograffin small bowel study protocol and eval diagnostic and therapeutic for psbo. discussed with med team and nursing team. will follow xrays later on today and tomorrow. correct electrolytes and cont ng and ivf. Fall Risk Details Current Medications: Current Medications Acetaminophen (Acetaminophen Supp 650 Mg Supp.Rect) 650 mg RI Q6H PRN PRN Reason: Pain, Mild (Pain Scale 1-3) Enoxaparin Sodium (Enoxaparin Sodium 40 Mg/0.4 Ml Syringe) 40 mg SUBCUT Q24H [facility] Last Admin: 10/13/21 02:16 Dose: 40 mg Documented by: Hydromorphone HCl (Hydromorphone Hcl 1 Mg/Ml Syringe) 1 mg IVPUSH Q4H PRN; Protocol PRN Reason: Pain, Severe (Pain Scale 7-10) Last Admin: 10/13/21 13:10 Dose: 1 mg Documented by: Dextrose/Sodium Chloride (D51/2ns) 1,000 mls @ 100 mls/hr IVCONT .Q10H [facility] Last Admin: 10/13/21 13:48 Dose: 100 mls/hr Documented by: Ondansetron HCl (Ondansetron Hcl 4 Mg/2 Ml Vial) 4 mg IVPUSH Q8H PRN PRN Reason: Nausea and Vomiting Last Admin: 10/12/21 11:42 Dose: 4 mg Documented by: Pharmacy Consult (Consult Rx Perform Med Rec) 1 each MISCELLANE ONCE PRN PRN Reason: Consult order Polyethylene Glycol (Polyethylene Glycol 3350 17 Gm Powd.Pack) 17 gm PO DAILY [facility] Last Admin: 10/13/21 09:31 Dose: Not Given Documented by: Sodium Chloride (0.9 % Sodium Chloride Flush 3 Ml Syringe) 3 ml IVFLUSH QSHIFT [facility] Last Admin: 10/13/21 08:49 Dose: Not Given Documented by: Time Spent With Patient Time: Total time spent is greater than 50% in coordination of care (as documented) at patient's floor/unit and/or counseling patient: Time with patient: 25 - 35 minutes Quality Stroke Does the patient have a stroke diagnosis?: No VTE Prior VTE?: No VTE Risk Level:: Medical - moderate - high VTE Device Contraindication: Treatment Not Indicated VTE Drug Contraindication: N/A - Med Ordered
[2021-10-13] MEDS: bisacodyL 10 MG SUPP.RECT PR (14:37)
[2021-10-13 15:44] LABS: Anion Gap 16 (12-20); Blood Urea Nitrogen 46 mg/dL (9-16); Calcium 9.2 mg/dL (8.4-10.2); Carbon Dioxide 35 mmol/L (22-29); Chloride 102 mmol/L (96-108); Creatinine Clr Calc Pharmacy 39.8; Estimated Glomerular Filt Rate 36; Glucose Random 160 mg/dL (60-115); Potassium 3.8 mmol/L (3.3-5.1); Sodium 149 mmol/L (135-145)
[2021-10-13 15:53] VITALS: BP 148/76; PULSE 100; RESP 15; TEMP 37.2; O2SAT 92
[2021-10-13 19:53] VITALS: BP 143/71; PULSE 83; RESP 16; TEMP 36.6; O2SAT 96
[2021-10-13 23:49] VITALS: BP 131/78; PULSE 96; RESP 17; TEMP 36.6; O2SAT 97
[2021-10-14] MEDS: Enoxaparin Sodium 40 MG/0.4 ML SYRINGE SUBCUT (03:17)
[2021-10-14] MEDS: HYDROmorphone HCl 1 MG/ML SYRINGE IVPUSH ×5 (03:18→21:36)
[2021-10-14 04:00] VITALS: BP 126/64; PULSE 89; RESP 17; TEMP 36.5; O2SAT 96
[2021-10-14 06:12] LABS: MANUAL DIFF FLAG NO
[2021-10-14 06:19] LABS: Basophils Absolute Auto 0.1 X10*3/uL (0.0-0.2); Basophils Percent Auto 0.4 % (0-2); Eosinophils Absolute Auto 0.2 X10*3/uL (0.0-0.4); Eosinophils Percent Auto 1.7 % (0-4); Hematocrit 36.9 % (42.0-52.0); Hemoglobin 11.9 g/dl (14.0-18.0); Imm Gran Abs Auto 0.07 X10*3/uL (0.00-0.03); Imm Gran Pct Auto 0.5 % (0.0-0.4); Lymphocytes Absolute Auto 3.1 X10*3/uL (1.2-4.9); Mean Corpuscular HGB Conc 32.2 g/dl (31.0-36.0); Mean Corpuscular Volume 96.1 fL (80.0-98.0); Mean Platelet Volume 10.4 fL (9.4-12.4); Monocytes Absolute Auto 1.1 X10*3/uL (0.1-1.2); Monocytes Percent Auto 8.2 % (2-11); Neutrophils Absolute Auto 8.3 x10*3/uL (2.0-8.3); Neutrophils Percent Auto 65.2 % (45-73); Platelet Count 263 X10*3/uL (160-400); Red Blood Count 3.84 X10*6/uL (4.60-5.80); Red Cell Distribution Width 14.7 % (11.0-16.0); White Blood Count 12.7 X10*3/uL (4.8-10.8)
[2021-10-14 06:40] LABS: Alanine Aminotransferase 16 U/L (0-40); Albumin Level 3.8 g/dL (3.5-5.0); Alkaline Phosphatase 165 U/L (39-117); Anion Gap 16 (12-20); Aspartate Amino Transferase 16 U/L (5-37); Bilirubin Total 0.5 mg/dL (0.0-1.0); Blood Urea Nitrogen 45 mg/dL (9-16); Calcium 9.4 mg/dL (8.4-10.2); Carbon Dioxide 35 mmol/L (22-29); Chloride 105 mmol/L (96-108); Creatinine Clr Calc Pharmacy 40.3; Estimated Glomerular Filt Rate 36; Glucose Fasting 166 mg/dL (60-99); Potassium 3.6 mmol/L (3.3-5.1); Sodium 152 mmol/L (135-145); Total Protein 7.2 g/dL (6.5-8.0)
[2021-10-14 07:05] VITALS: BP 157/69; PULSE 98; RESP 20; TEMP 36.1; O2SAT 94
[2021-10-14] MEDS: 0.9 % Sodium Chloride Flush 3 ML SYRINGE IVFLUSH ×2 (07:17→15:43)
[2021-10-14] MEDS: Dextrose 5 % 1,000 ML 100 ML IVCONT (09:30)
[2021-10-14 11:02] VITALS: BP 170/76; PULSE 94; TEMP 36.6; O2SAT 94
--- NOTE | 2021-10-14 11:45 | PM.PNGS ---
Subjective Subjective Date of Service: 10/14/21 Interval history: pt still complaining of abdo pain diffusely but better, had a large bowel movement last night. pt had gastrograffin contrast which 8 hrs later was thorughout the colon Physical Exam Vital Signs: Vital Signs: Last Vital Signs Temp 98 F 10/14/21 11:02 Pulse 94 10/14/21 11:02 Resp 20 10/14/21 07:05 BP 170/76 H 10/14/21 11:02 Pulse Ox 94 10/14/21 11:02 BMI result Body Mass Index 41.8 GI: Other: still distended somewhat but with some better bowel sounds tender mid abdomen but no guarding or rebound on incarcerated hernia Objective Data Active Medications Acetaminophen (Acetaminophen Supp 650 Mg Supp.Rect) 650 mg [place] Q6H PRN PRN Reason: Pain, Mild (Pain Scale 1-3) Enoxaparin Sodium (Enoxaparin Sodium 40 Mg/0.4 Ml Syringe) 40 mg SUBCUT Q24H [facility] Last Admin: 10/14/21 03:17 Dose: 40 mg Documented by: KATHY Hydromorphone HCl (Hydromorphone Hcl 1 Mg/Ml Syringe) 1 mg IVPUSH Q4H PRN; Protocol PRN Reason: Pain, Severe (Pain Scale 7-10) Last Admin: 10/14/21 07:15 Dose: 1 mg Documented by: ANMOL Dextrose (D5w) 1,000 mls @ 175 mls/hr IVCONT .Q5H43M [facility] Ondansetron HCl (Ondansetron Hcl 4 Mg/2 Ml Vial) 4 mg IVPUSH Q8H PRN PRN Reason: Nausea and Vomiting Last Admin: 10/12/21 11:42 Dose: 4 mg Documented by: JOURDAN Pharmacy Consult (Consult Rx Perform Med Rec) 1 each MISCELLANE ONCE PRN PRN Reason: Consult order Polyethylene Glycol (Polyethylene Glycol 3350 17 Gm Powd.Pack) 17 gm PO DAILY [facility] Last Admin: 10/14/21 07:19 Dose: Not Given Documented by: ANMOL Non-Admin Reason: NPO Sodium Chloride (0.9 % Sodium Chloride Flush 3 Ml Syringe) 3 ml IVFLUSH QSHIFT [facility] Last Admin: 10/14/21 07:17 Dose: 3 ml Documented by: ANMOL Labs CBC & Chem 7: 10/14/21 06:02 10/14/21 06:02 Labs: Laboratory Results - last 24 hr 10/13/21 10/14/21 10/14/21 15:09 06:02 06:02 MCV 96.1 MCH 31.0 MCHC 32.2 RDW 14.7 Plt Count 263 MPV 10.4 Immature Gran % (Auto) 0.5 H Neut % (Auto) 65.2 Lymph % (Auto) 24.0 [place] % (Auto) 8.2 Eos % (Auto) 1.7 Baso % (Auto) 0.4 Lymph # (Auto) 3.1 [place] # (Auto) 1.1 Eos # (Auto) 0.2 Baso # (Auto) 0.1 Abs Immat Gran (auto) 0.07 H Absolute Neuts (auto) 8.3 Absolute Nucleated RBC 0.000 Nucleated RBC % (auto) 0.0 Anion Gap 16 16 Estim Creat Clear Calc 39.8 40.3 Estimated GFR 36 36 Random Glucose 160 H Fasting Glucose 166 H Calcium 9.2 9.4 Total Bilirubin 0.5 AST 16 ALT 16 Alkaline Phosphatase 165 H Total Protein 7.2 Albumin 3.8 Procedures Date of Service Date of Service: 10/14/21 Progress Note: A&P Assessment and plan (1) Partial small bowel obstruction: Status: Acute Assessment and Plan: 76 year old male with psbo improving - prob secondary to adhesions - xrays looking good and abdo bs better but still with pain plan - dulcolax suppository again today - stimulate from above, oob in chair, ambulate as possible can give sips of liquids/popsicles until feeling better. correct electrolytes as per med team wbc improving Fall Risk Details Current Medications: Current Medications Acetaminophen (Acetaminophen Supp 650 Mg Supp.Rect) 650 mg [place] Q6H PRN PRN Reason: Pain, Mild (Pain Scale 1-3) Enoxaparin Sodium (Enoxaparin Sodium 40 Mg/0.4 Ml Syringe) 40 mg SUBCUT Q24H [facility] Last Admin: 10/14/21 03:17 Dose: 40 mg Documented by: Hydromorphone HCl (Hydromorphone Hcl 1 Mg/Ml Syringe) 1 mg IVPUSH Q4H PRN; Protocol PRN Reason: Pain, Severe (Pain Scale 7-10) Last Admin: 10/14/21 07:15 Dose: 1 mg Documented by: Dextrose (D5w) 1,000 mls @ 175 mls/hr IVCONT .Q5H43M [facility] Ondansetron HCl (Ondansetron Hcl 4 Mg/2 Ml Vial) 4 mg IVPUSH Q8H PRN PRN Reason: Nausea and Vomiting Last Admin: 10/12/21 11:42 Dose: 4 mg Documented by: Pharmacy Consult (Consult Rx Perform Med Rec) 1 each MISCELLANE ONCE PRN PRN Reason: Consult order Polyethylene Glycol (Polyethylene Glycol 3350 17 Gm Powd.Pack) 17 gm PO DAILY [facility] Last Admin: 10/14/21 07:19 Dose: Not Given Documented by: Sodium Chloride (0.9 % Sodium Chloride Flush 3 Ml Syringe) 3 ml IVFLUSH QSHIFT [facility] Last Admin: 10/14/21 07:17 Dose: 3 ml Documented by: Time Spent With Patient Time: Total time spent is greater than 50% in coordination of care (as documented) at patient's floor/unit and/or counseling patient: Time with patient: 15 - 24 minutes Quality Stroke Does the patient have a stroke diagnosis?: No VTE Prior VTE?: No VTE Risk Level:: Medical - moderate - high VTE Device Contraindication: Treatment Not Indicated VTE Drug Contraindication: N/A - Med Ordered
[2021-10-14] MEDS: Dextrose 5 % 1,000 ML 175 ML IVCONT ×3 (11:52→21:43)
--- NOTE | 2021-10-14 12:20 | P.PNIM_ITS ---
Subjective Subjective Date of Service: 10/14/21 Interval History: NGT out overnight. No vomiting; abd pain improved Review of Systems denies chest pain Denies shortness of breath Admits to improved belly pain; Physical Exam Vital Signs: Vital Signs: Last Vital Signs Temp 98 F 10/14/21 11:02 Pulse 94 10/14/21 11:02 Resp 20 10/14/21 07:05 BP 170/76 H 10/14/21 11:02 Pulse Ox 94 10/14/21 11:02 BMI result Body Mass Index 41.8 Const: Other: wake alert oriented x3 no acute distress Resp: Other: clear to auscultation bilaterally no rales rhonchi wheezes Cardio: Other: no S4; positive S1-S2; no S3 murmurs rubs gallops GI: Other: less distended; mildly tender diffusely Extrem: Other: no edema Objective Data Active Medications Acetaminophen (Acetaminophen Supp 650 Mg Supp.Rect) 650 mg [place] Q6H PRN PRN Reason: Pain, Mild (Pain Scale 1-3) Enoxaparin Sodium (Enoxaparin Sodium 40 Mg/0.4 Ml Syringe) 40 mg SUBCUT Q24H [facility] Last Admin: 10/14/21 03:17 Dose: 40 mg Documented by: KATHY Hydromorphone HCl (Hydromorphone Hcl 1 Mg/Ml Syringe) 1 mg IVPUSH Q4H PRN; Protocol PRN Reason: Pain, Severe (Pain Scale 7-10) Last Admin: 10/14/21 11:52 Dose: 1 mg Documented by: ANMOL Dextrose (D5w) 1,000 mls @ 175 mls/hr IVCONT .Q5H43M [facility] Last Admin: 10/14/21 11:52 Dose: 175 mls/hr Documented by: ANMOL Ondansetron HCl (Ondansetron Hcl 4 Mg/2 Ml Vial) 4 mg IVPUSH Q8H PRN PRN Reason: Nausea and Vomiting Last Admin: 10/12/21 11:42 Dose: 4 mg Documented by: JOURDAN Pharmacy Consult (Consult Rx Perform Med Rec) 1 each MISCELLANE ONCE PRN PRN Reason: Consult order Polyethylene Glycol (Polyethylene Glycol 3350 17 Gm Powd.Pack) 17 gm PO DAILY [facility] Last Admin: 10/14/21 07:19 Dose: Not Given Documented by: ANMOL Non-Admin Reason: NPO Sodium Chloride (0.9 % Sodium Chloride Flush 3 Ml Syringe) 3 ml IVFLUSH QSHIFT [facility] Last Admin: 10/14/21 07:17 Dose: 3 ml Documented by: ANMOL Labs CBC & Chem 7: 10/14/21 06:02 10/14/21 06:02 Labs: Laboratory Results - last 24 hr 10/13/21 10/14/21 10/14/21 15:09 06:02 06:02 MCV 96.1 MCH 31.0 MCHC 32.2 RDW 14.7 Plt Count 263 MPV 10.4 Immature Gran % (Auto) 0.5 H Neut % (Auto) 65.2 Lymph % (Auto) 24.0 [place] % (Auto) 8.2 Eos % (Auto) 1.7 Baso % (Auto) 0.4 Lymph # (Auto) 3.1 [place] # (Auto) 1.1 Eos # (Auto) 0.2 Baso # (Auto) 0.1 Abs Immat Gran (auto) 0.07 H Absolute Neuts (auto) 8.3 Absolute Nucleated RBC 0.000 Nucleated RBC % (auto) 0.0 Anion Gap 16 16 Estim Creat Clear Calc 39.8 40.3 Estimated GFR 36 36 Random Glucose 160 H Fasting Glucose 166 H Calcium 9.2 9.4 Total Bilirubin 0.5 AST 16 ALT 16 Alkaline Phosphatase 165 H Total Protein 7.2 Albumin 3.8 Assessment and Plan (1) Partial small bowel obstruction: Status: Acute (2) Hypernatremia: Status: Acute (3) Acute kidney injury superimposed on CKD: Status: Acute Plan 76-year-old male with past medical history hypertension, CHF, CKD, prostate cancer presents to the hospital with complaints of abdominal pain and constipation nausea and vomiting 1.PSBO - abdomen less distended; continue decompression - pain meds for comfort -as per surgery 2.Hypernatremeia( calculated free water deficit 4.5 L) -D5W @175/hr should correct deficit 24-32 hrs -follow renals/divalents 3. CKD -as per #2 Lovenox/Full Code Quality Stroke Does the patient have a stroke diagnosis?: No VTE Prior VTE?: No VTE Risk Level:: Medical - moderate - high VTE Device Contraindication: Treatment Not Indicated VTE Drug Contraindication: N/A - Med Ordered
[2021-10-14 15:28] VITALS: BP 179/94; PULSE 92; RESP 18; TEMP 36.5; O2SAT 95
[2021-10-14] MEDS: ondansetron HCL 4 MG/2 ML VIAL IVPUSH (15:43)
[2021-10-14 15:47] LABS: Anion Gap 16 (12-20); Blood Urea Nitrogen 38 mg/dL (9-16); Calcium 9.5 mg/dL (8.4-10.2); Carbon Dioxide 35 mmol/L (22-29); Chloride 103 mmol/L (96-108); Creatinine Clr Calc Pharmacy 43.4; Estimated Glomerular Filt Rate 40; Glucose Random 143 mg/dL (60-115); Potassium 3.7 mmol/L (3.3-5.1); Sodium 150 mmol/L (135-145)
[2021-10-14 19:10] VITALS: BP 177/86; PULSE 106; RESP 18; TEMP 36.6; O2SAT 93
[2021-10-14 23:41] VITALS: BP 168/81; PULSE 92; RESP 16; TEMP 36.8; O2SAT 94
[2021-10-15] VITALS (7 sets, daily range): BP systolic 147–181; BP diastolic 67–88; PULSE 84–105; RESP 16–18; TEMP 36.6–37.7; O2SAT 92–95
[2021-10-15] MEDS: Enoxaparin Sodium 40 MG/0.4 ML SYRINGE SUBCUT (02:16)
[2021-10-15] MEDS: HYDROmorphone HCl 1 MG/ML SYRINGE IVPUSH ×5 (02:16→20:15)
[2021-10-15] MEDS: Dextrose 5 % 1,000 ML 175 ML IVCONT ×2 (02:51→08:51)
[2021-10-15 04:58] LABS: MANUAL DIFF FLAG NO
[2021-10-15 05:04] LABS: Basophils Absolute Auto 0.1 X10*3/uL (0.0-0.2); Basophils Percent Auto 0.7 % (0-2); Eosinophils Absolute Auto 0.3 X10*3/uL (0.0-0.4); Eosinophils Percent Auto 2.9 % (0-4); Hematocrit 35.4 % (42.0-52.0); Imm Gran Abs Auto 0.07 X10*3/uL (0.00-0.03); Imm Gran Pct Auto 0.6 % (0.0-0.4); Lymphocytes Absolute Auto 2.6 X10*3/uL (1.2-4.9); Lymphocytes Percent Auto 22.7 % (20-40); Mean Corpuscular HGB Conc 31.1 g/dl (31.0-36.0); Mean Corpuscular Hemoglobin 30.7 pg (27.0-33.0); Mean Corpuscular Volume 98.9 fL (80.0-98.0); Mean Platelet Volume 10.7 fL (9.4-12.4); Monocytes Absolute Auto 0.9 X10*3/uL (0.1-1.2); Monocytes Percent Auto 7.8 % (2-11); Neutrophils Absolute Auto 7.6 x10*3/uL (2.0-8.3); Neutrophils Percent Auto 65.3 % (45-73); Platelet Count 243 X10*3/uL (160-400); Red Blood Count 3.58 X10*6/uL (4.60-5.80); Red Cell Distribution Width 14.6 % (11.0-16.0); White Blood Count 11.6 X10*3/uL (4.8-10.8)
[2021-10-15 05:25] LABS: Alanine Aminotransferase 15 U/L (0-40); Albumin Level 3.5 g/dL (3.5-5.0); Alkaline Phosphatase 149 U/L (39-117); Anion Gap 11 (12-20); Aspartate Amino Transferase 17 U/L (5-37); Bilirubin Total 0.6 mg/dL (0.0-1.0); Blood Urea Nitrogen 32 mg/dL (9-16); Calcium 8.8 mg/dL (8.4-10.2); Carbon Dioxide 35 mmol/L (22-29); Chloride 99 mmol/L (96-108); Creatinine Clr Calc Pharmacy 46.1; Estimated Glomerular Filt Rate 43; Glucose Fasting 168 mg/dL (60-99); Potassium 3.3 mmol/L (3.3-5.1); Sodium 142 mmol/L (135-145); Total Protein 6.4 g/dL (6.5-8.0)
[2021-10-15] MEDS: polyethylene glycoL 3350 17 GM POWD.PACK PO (08:46)
[2021-10-15 11:39] LABS: Sodium 141 mmol/L (135-145)
--- NOTE | 2021-10-15 13:41 | MHC.CM.PN ---
PLAN IS FOR PATIENT TO RETURN TO [facility] BY Friday10/17/21 FACILITY UPDATED IN [facility]
--- NOTE | 2021-10-15 13:58 | P.PNIM_ITS ---
Subjective Subjective Date of Service: 10/15/21 Interval History: Abd less distended. Passing gas. Would like to try liquids. Review of Systems Review of Systems: Yes all other systems are reviewed and are negative Physical Exam Vital Signs: Vital Signs: Last Vital Signs Temp 99.8 F 10/15/21 11:35 Pulse 89 10/15/21 11:35 Resp 16 10/15/21 11:35 BP 147/67 H 10/15/21 11:35 Pulse Ox 92 10/15/21 11:35 BMI result Body Mass Index 41.8 Gen: in no acute distress HEENT: sclera anicteric, moist mucus membranes Neck: supple Lungs: clear to auscultation bilaterally Heart: regular rate and rhythm, no murmurs Abd: obese, mildly distended, normal active bowel sounds Ext: no edema Skin: warm/well-perfused Neuro: alert and oriented x3, no focal findings Psych: appropriate affect Objective Data Active Medications Acetaminophen (Acetaminophen Supp 650 Mg Supp.Rect) 650 mg [place] Q6H PRN PRN Reason: Pain, Mild (Pain Scale 1-3) Enoxaparin Sodium (Enoxaparin Sodium 40 Mg/0.4 Ml Syringe) 40 mg SUBCUT Q24H [facility] Last Admin: 10/15/21 02:16 Dose: 40 mg Documented by: TASHA Hydromorphone HCl (Hydromorphone Hcl 1 Mg/Ml Syringe) 1 mg IVPUSH Q4H PRN; P rotocol PRN Reason: Pain, Severe (Pain Scale 7-10) Last Admin: 10/15/21 10:48 Dose: 1 mg Documented by: FERN Ondansetron HCl (Ondansetron Hcl 4 Mg/2 Ml Vial) 4 mg IVPUSH Q8H PRN PRN Reason: Nausea and Vomiting Last Admin: 10/14/21 15:43 Dose: 4 mg Documented by: ANMOL Pharmacy Consult (Consult Rx Perform Med Rec) 1 each MISCELLANE ONCE PRN PRN Reason: Consult order Polyethylene Glycol (Polyethylene Glycol 3350 17 Gm Powd.Pack) 17 gm PO DAILY [facility] Last Admin: 10/15/21 08:46 Dose: 17 gm Documented by: FERN Sodium Chloride (0.9 % Sodium Chloride Flush 3 Ml Syringe) 3 ml IVFLUSH QSHIFT [facility] Last Admin: 10/15/21 09:45 Dose: Not Given Documented by: FERN Non-Admin Reason: IV Running Labs CBC & Chem 7: 10/15/21 04:12 10/15/21 11:09 Labs: Laboratory Results - last 24 hr 10/14/21 10/15/21 10/15/21 15:01 04:12 04:12 MCV 98.9 H MCH 30.7 MCHC 31.1 RDW 14.6 Plt Count 243 MPV 10.7 Immature Gran % (Auto) 0.6 H Neut % (Auto) 65.3 Lymph % (Auto) 22.7 [place] % (Auto) 7.8 Eos % (Auto) 2.9 Baso % (Auto) 0.7 Lymph # (Auto) 2.6 [place] # (Auto) 0.9 Eos # (Auto) 0.3 Baso # (Auto) 0.1 Abs Immat Gran (auto) 0.07 H Absolute Neuts (auto) 7.6 Absolute Nucleated RBC 0.000 Nucleated RBC % (auto) 0.0 Anion Gap 16 11 L Estim Creat Clear Calc 43.4 46.1 Estimated GFR 40 43 Random Glucose 143 H Fasting Glucose 168 H Calcium 9.5 8.8 D Total Bilirubin 0.6 AST 17 ALT 15 Alkaline Phosphatase 149 H Total Protein 6.4 L Albumin 3.5 Assessment and Plan (1) Partial small bowel obstruction: Status: Acute (2) Hypernatremia: Status: Acute (3) Acute kidney injury superimposed on CKD: Status: Acute Plan hospital d#3 76yo M with CKD3, HTN, CHF, prostate CA admitted for pSBO related to prior abd surgeries # pSBO - NG tube out - trial of clear liquids - Gen Surg following # hyperNa - corrected, d/c IV d5W, follow Na to ensure not correcting too quickly # CKD3 - SCr close to baseline of around 1.4-1.5 # VTE ppx - LMWH Quality Stroke Does the patient have a stroke diagnosis?: No VTE Prior VTE?: No VTE Risk Level:: Medical - moderate - high VTE Device Contraindication: Treatment Not Indicated VTE Drug Contraindication: N/A - Med Ordered
[2021-10-15 15:25] LABS: Sodium 142 mmol/L (135-145)
[2021-10-15] MEDS: 0.9 % Sodium Chloride Flush 3 ML SYRINGE IVFLUSH ×2 (16:18→20:15)
--- NOTE | 2021-10-15 17:26 | PM.PNGS ---
Subjective Subjective Date of Service: 10/15/21 Interval history: Less abdominal pain, passing stool and flatus Physical Exam Vital Signs: Vital Signs: Last Vital Signs Temp 98.0 F 10/15/21 15:42 Pulse 105 H 10/15/21 15:42 Resp 18 10/15/21 15:42 BP 162/78 H 10/15/21 15:42 Pulse Ox 95 10/15/21 15:42 BMI result Body Mass Index 41.8 Const: General: comfortable Nutritional Appearance: well nourished Orientation/consciousness: patient oriented x3 Resp: Effort & Inspection: normal respiratory effort and not labored GI: Inspection: Yes normal to inspection Palpation (GI): Soft to palpation, nontender, no guarding and not rigid Percussion: Yes normal to percussion Neuro: General: patient oriented x3 Objective Data Active Medications Acetaminophen (Acetaminophen Supp 650 Mg Supp.Rect) 650 mg [place] Q6H PRN PRN Reason: Pain, Mild (Pain Scale 1-3) Enoxaparin Sodium (Enoxaparin Sodium 40 Mg/0.4 Ml Syringe) 40 mg SUBCUT Q24H [facility] Last Admin: 10/15/21 02:16 Dose: 40 mg Documented by: TASHA Hydromorphone HCl (Hydromorphone Hcl 1 Mg/Ml Syringe) 1 mg IVPUSH Q4H PRN; Protocol PRN Reason: Pain, Severe (Pain Scale 7-10) Last Admin: 10/15/21 16:18 Dose: 1 mg Documented by: RAKESH Ondansetron HCl (Ondansetron Hcl 4 Mg/2 Ml Vial) 4 mg IVPUSH Q8H PRN PRN Reason: Nausea and Vomiting Last Admin: 10/14/21 15:43 Dose: 4 mg Documented by: ANMOL Pharmacy Consult (Consult Rx Perform Med Rec) 1 each MISCELLANE ONCE PRN PRN Reason: Consult order Polyethylene Glycol (Polyethylene Glycol 3350 17 Gm Powd.Pack) 17 gm PO DAILY [facility] Last Admin: 10/15/21 08:46 Dose: 17 gm Documented by: COLTIM Sodium Chloride (0.9 % Sodium Chloride Flush 3 Ml Syringe) 3 ml IVFLUSH QSHIFT [facility] Last Admin: 10/15/21 16:18 Dose: 3 ml Documented by: RAKESH Labs CBC & Chem 7: 10/15/21 04:12 10/15/21 15:08 Labs: Laboratory Results - last 24 hr 10/15/21 10/15/21 04:12 04:12 MCV 98.9 H MCH 30.7 MCHC 31.1 RDW 14.6 Plt Count 243 MPV 10.7 Immature Gran % (Auto) 0.6 H Neut % (Auto) 65.3 Lymph % (Auto) 22.7 [place] % (Auto) 7.8 Eos % (Auto) 2.9 Baso % (Auto) 0.7 Lymph # (Auto) 2.6 [place] # (Auto) 0.9 Eos # (Auto) 0.3 Baso # (Auto) 0.1 Abs Immat Gran (auto) 0.07 H Absolute Neuts (auto) 7.6 Absolute Nucleated RBC 0.000 Nucleated RBC % (auto) 0.0 Anion Gap 11 L Estim Creat Clear Calc 46.1 Estimated GFR 43 Fasting Glucose 168 H Calcium 8.8 D Total Bilirubin 0.6 AST 17 ALT 15 Alkaline Phosphatase 149 H Total Protein 6.4 L Albumin 3.5 Procedures Date of Service Date of Service: 10/15/21 Progress Note: A&P Assessment and plan (1) Partial small bowel obstruction: Status: Acute Plan Partial bowel obstruction, resolving; Small Bowel series noted with contrast in colon without obstruction. Agree with starting po. Advance as tolerated. Fall Risk Details Current Medications: Current Medications Acetaminophen (Acetaminophen Supp 650 Mg Supp.Rect) 650 mg [place] Q6H PRN PRN Reason: Pain, Mild (Pain Scale 1-3) Enoxaparin Sodium (Enoxaparin Sodium 40 Mg/0.4 Ml Syringe) 40 mg SUBCUT Q24H [facility] Last Admin: 10/15/21 02:16 Dose: 40 mg Documented by: Hydromorphone HCl (Hydromorphone Hcl 1 Mg/Ml Syringe) 1 mg IVPUSH Q4H PRN; Protocol PRN Reason: Pain, Severe (Pain Scale 7-10) Last Admin: 10/15/21 16:18 Dose: 1 mg Documented by: Ondansetron HCl (Ondansetron Hcl 4 Mg/2 Ml Vial) 4 mg IVPUSH Q8H PRN PRN Reason: Nausea and Vomiting Last Admin: 10/14/21 15:43 Dose: 4 mg Documented by: Pharmacy Consult (Consult Rx Perform Med Rec) 1 each MISCELLANE ONCE PRN PRN Reason: Consult order Polyethylene Glycol (Polyethylene Glycol 3350 17 Gm Powd.Pack) 17 gm PO DAILY [facility] Last Admin: 10/15/21 08:46 Dose: 17 gm Documented by: Sodium Chloride (0.9 % Sodium Chloride Flush 3 Ml Syringe) 3 ml IVFLUSH QSHIFT [facility] Last Admin: 10/15/21 16:18 Dose: 3 ml Documented by: Time Spent With Patient Time: Total time spent is greater than 50% in coordination of care (as documented) at patient's floor/unit and/or counseling patient: Time with patient: 15 - 24 minutes Quality Stroke Does the patient have a stroke diagnosis?: No VTE Prior VTE?: No VTE Risk Level:: Medical - moderate - high VTE Device Contraindication: Treatment Not Indicated VTE Drug Contraindication: N/A - Med Ordered
[2021-10-16] MEDS: HYDROmorphone HCl 1 MG/ML SYRINGE IVPUSH ×5 (00:57→21:32)
[2021-10-16 03:37] VITALS: BP 168/81; PULSE 86; RESP 16; TEMP 36.7; O2SAT 93
[2021-10-16] MEDS: Enoxaparin Sodium 40 MG/0.4 ML SYRINGE SUBCUT (03:40)
[2021-10-16 07:00] LABS: MANUAL DIFF FLAG NO
[2021-10-16 07:11] LABS: Basophils Absolute Auto 0.1 X10*3/uL (0.0-0.2); Basophils Percent Auto 0.7 % (0-2); Eosinophils Absolute Auto 0.4 X10*3/uL (0.0-0.4); Eosinophils Percent Auto 4.1 % (0-4); Hematocrit 35.3 % (42.0-52.0); Hemoglobin 11.4 g/dl (14.0-18.0); Imm Gran Abs Auto 0.05 X10*3/uL (0.00-0.03); Imm Gran Pct Auto 0.5 % (0.0-0.4); Lymphocytes Absolute Auto 2.3 X10*3/uL (1.2-4.9); Lymphocytes Percent Auto 21.9 % (20-40); Mean Corpuscular HGB Conc 32.3 g/dl (31.0-36.0); Mean Corpuscular Hemoglobin 30.4 pg (27.0-33.0); Mean Corpuscular Volume 94.1 fL (80.0-98.0); Mean Platelet Volume 10.2 fL (9.4-12.4); Monocytes Percent Auto 9.4 % (2-11); Neutrophils Absolute Auto 6.6 x10*3/uL (2.0-8.3); Neutrophils Percent Auto 63.4 % (45-73); Platelet Count 227 X10*3/uL (160-400); Red Blood Count 3.75 X10*6/uL (4.60-5.80); Red Cell Distribution Width 14.1 % (11.0-16.0); White Blood Count 10.4 X10*3/uL (4.8-10.8)
[2021-10-16 07:18] VITALS: BP 149/72; PULSE 82; RESP 17; TEMP 37.1; O2SAT 95
[2021-10-16] MEDS: 0.9 % Sodium Chloride Flush 3 ML SYRINGE IVFLUSH ×3 (07:29→23:41)
[2021-10-16 07:36] LABS: Albumin Level 3.5 g/dL (3.5-5.0); Alkaline Phosphatase 153 U/L (39-117); Anion Gap 13 (12-20); Bilirubin Total 0.8 mg/dL (0.0-1.0); Blood Urea Nitrogen 23 mg/dL (9-16); Calcium 8.9 mg/dL (8.4-10.2); Carbon Dioxide 30 mmol/L (22-29); Chloride 99 mmol/L (96-108); Creatinine Clr Calc Pharmacy 57.7; Estimated Glomerular Filt Rate 55; Glucose Fasting 144 mg/dL (60-99); Potassium 3.4 mmol/L (3.3-5.1); Sodium 139 mmol/L (135-145); Total Protein 6.4 g/dL (6.5-8.0)
[2021-10-16 07:52] LABS: Alanine Aminotransferase 25 U/L (0-40); Aspartate Amino Transferase 27 U/L (5-37)
--- NOTE | 2021-10-16 10:23 | P.PNIM_ITS ---
Subjective Subjective Date of Service: 10/16/21 Interval History: Some nausea with broth but tolerating gelatin Passing gas and small amounts of stool C/o globus sensation worsening over last few months Review of Systems Review of Systems: Yes all other systems are reviewed and are negative Physical Exam Vital Signs: Vital Signs: Last Vital Signs Temp 98.7 F 10/16/21 07:18 Pulse 82 10/16/21 07:18 Resp 17 10/16/21 07:18 BP 149/72 H 10/16/21 07:18 Pulse Ox 95 10/16/21 07:18 BMI result Body Mass Index 41.8 Objective Data Active Medications Acetaminophen (Acetaminophen Supp 650 Mg Supp.Rect) 650 mg [place] Q6H PRN PRN Reason: Pain, Mild (Pain Scale 1-3) Enoxaparin Sodium (Enoxaparin Sodium 40 Mg/0.4 Ml Syringe) 40 mg SUBCUT Q24H [facility] Last Admin: 10/16/21 03:40 Dose: 40 mg Documented by: KEMAL Hydromorphone HCl (Hydromorphone Hcl 1 Mg/Ml Syringe) 1 mg IVPUSH Q4H PRN; Protocol PRN Reason: Pain, Severe (Pain Scale 7-10) Last Admin: 10/16/21 06:09 Dose: 1 mg Documented by: KEMAL Ondansetron HCl (Ondansetron Hcl 4 Mg/2 Ml Vial) 4 mg IVPUSH Q8H PRN PRN Reason: Nausea and Vomiting Last Admin: 10/14/21 15:43 Dose: 4 mg Documented by: ANMOL Pharmacy Consult (Consult Rx Perform Med Rec) 1 each MISCELLANE ONCE PRN PRN Reason: Consult order Polyethylene Glycol (Polyethylene Glycol 3350 17 Gm Powd.Pack) 17 gm PO DAILY [facility] Last Admin: 10/15/21 08:46 Dose: 17 gm Documented by: COLTIM Sodium Chloride (0.9 % Sodium Chloride Flush 3 Ml Syringe) 3 ml IVFLUSH QSHIFT [facility] Last Admin: 10/16/21 07:29 Dose: 3 ml Documented by: MALIK Labs CBC & Chem 7: 10/16/21 06:55 10/16/21 06:55 Labs: Laboratory Results - last 24 hr 10/16/21 10/16/21 06:55 06:55 MCV 94.1 MCH 30.4 MCHC 32.3 RDW 14.1 Plt Count 227 MPV 10.2 Immature Gran % (Auto) 0.5 H Neut % (Auto) 63.4 Lymph % (Auto) 21.9 [place] % (Auto) 9.4 Eos % (Auto) 4.1 H Baso % (Auto) 0.7 Lymph # (Auto) 2.3 [place] # (Auto) 1.0 Eos # (Auto) 0.4 Baso # (Auto) 0.1 Abs Immat Gran (auto) 0.05 H Absolute Neuts (auto) 6.6 Absolute Nucleated RBC 0.000 Nucleated RBC % (auto) 0.0 Anion Gap 13 Estim Creat Clear Calc 57.7 Estimated GFR 55 Random Glucose TNP Fasting Glucose 144 H Calcium 8.9 Total Bilirubin 0.8 AST 27 D ALT 25 Alkaline Phosphatase 153 H Total Protein 6.4 L Albumin 3.5 Assessment and Plan (1) Partial small bowel obstruction: Status: Acute (2) Hypernatremia: Status: Acute (3) Acute kidney injury superimposed on CKD: Status: Acute Plan hospital d#4 76yo M with CKD3, HTN, CHF, prostate CA admitted for pSBO related to prior abd surgeries # pSBO - NG tube out, continue clear liquids, Gen Surg following # globus sensation - upper GI series - 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
[2021-10-16] MEDS: polyethylene glycoL 3350 17 GM POWD.PACK PO (10:39)
[2021-10-16 10:59] VITALS: BP 162/79; PULSE 82; RESP 16; TEMP 37.1; O2SAT 93
[2021-10-16 11:34] VITALS: RESP 16
--- NOTE | 2021-10-16 13:13 | MHC.CM.PN ---
PATIENT STILL ON CLEARS AND WITH DYSPHASIA. PLAN IS POSSIBLE RETURN TO [facility] BY FRIDAY FACILITY UPDATED IN [facility]
--- NOTE | 2021-10-16 15:34 | MHC.SL.SWA ---
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 Oral Medication Intake: Whole with Liquid Please contact the pharmacy regarding appropriate crushable or liquid drug formulations that are available whenever modified delivery is recommended. Compensatory Strategies and Precautions to be Taken for Safe Swallow: Sitting Upright (90 deg) Liquids from Cup Alternate Liquids/Solids Rate of Ingestion Change Supervision While Eating and Drinking for Safe Swallow: Intermittent Supervision Foods to Avoid: Pt is edentulous, avoid hard or difficult to chew solids Swallowing Recommended Treatments: Compens. Strategy Educat. Recommendation for Speech: Inpatient Speech Therapy Comment: Pt presents w/ consistent c/o sensation of lump in throat on swallow, indicated area below larynx as area where sensation is. On swallow trials, pt presents w/ swallow WNL on thin liquids w/no clinical signs of aspiration, on food consistencies, PT has mildly maladaptive lingual mvt for bolus transit (mashes w/tongue), w/swallow phase WNL. Pt is edentulous. If MD is considering advancing PT from thin liquids at this time (Pt is s/p abdominal surgery), recommend diet w/consistencies of Ground Mechanical/Adv (NDD2), w/THIN liquids, w Pills WHOLE w/Liquid. Diet recommendations sent to MD, Gasoline Locomotive Crane Operator by secure text. CASEWORK SUPERVISOR to re-assess for toleration of diet, re-assess swallow for advancement of diet if warrented. Recommend follow up w/ GI re throat discomfort associated w/swallow. Frequency/Duration: Date Range for Service Req: Timeline to reassess: Salt Washer Clinican/Clinical Fellow: No Supervisory Statement: I have reviewed and agree with the student/clinical fellow's documentation: N/A Speech Language Pathologist: Rashmi Corea M.A., [facility]-CASEWORK SUPERVISOR
[2021-10-16 15:45] VITALS: BP 148/71; PULSE 83; RESP 18; TEMP 36.8; O2SAT 94
[2021-10-16 19:34] VITALS: BP 158/72; PULSE 78; RESP 18; TEMP 36.4; O2SAT 93
[2021-10-17] VITALS (8 sets, daily range): BP systolic 144–169; BP diastolic 65–79; PULSE 80–93; RESP 16–18; TEMP 36.4–36.9; O2SAT 90–94
[2021-10-17] MEDS: Enoxaparin Sodium 40 MG/0.4 ML SYRINGE SUBCUT (03:34)
[2021-10-17] MEDS: HYDROmorphone HCl 1 MG/ML SYRINGE IVPUSH ×5 (03:38→17:58)
[2021-10-17 05:57] LABS: MANUAL DIFF FLAG NO
[2021-10-17 06:08] LABS: Basophils Absolute Auto 0.1 X10*3/uL (0.0-0.2); Basophils Percent Auto 0.5 % (0-2); Eosinophils Absolute Auto 0.5 X10*3/uL (0.0-0.4); Eosinophils Percent Auto 4.3 % (0-4); Hematocrit 33.8 % (42.0-52.0); Hemoglobin 11.1 g/dl (14.0-18.0); Imm Gran Abs Auto 0.09 X10*3/uL (0.00-0.03); Imm Gran Pct Auto 0.8 % (0.0-0.4); Lymphocytes Absolute Auto 2.8 X10*3/uL (1.2-4.9); Lymphocytes Percent Auto 23.6 % (20-40); Mean Corpuscular HGB Conc 32.8 g/dl (31.0-36.0); Mean Corpuscular Hemoglobin 30.8 pg (27.0-33.0); Mean Corpuscular Volume 93.9 fL (80.0-98.0); Mean Platelet Volume 10.3 fL (9.4-12.4); Monocytes Percent Auto 8.7 % (2-11); Neutrophils Absolute Auto 7.4 x10*3/uL (2.0-8.3); Neutrophils Percent Auto 62.1 % (45-73); Platelet Count 237 X10*3/uL (160-400)
[2021-10-17 06:24] LABS: Alanine Aminotransferase 51 U/L (0-40); Albumin Level 3.4 g/dL (3.5-5.0); Alkaline Phosphatase 158 U/L (39-117); Anion Gap 11 (12-20); Aspartate Amino Transferase 42 U/L (5-37); Bilirubin Total 0.9 mg/dL (0.0-1.0); Blood Urea Nitrogen 19 mg/dL (9-16); Calcium 8.9 mg/dL (8.4-10.2); Carbon Dioxide 32 mmol/L (22-29); Chloride 97 mmol/L (96-108); Creatinine Clr Calc Pharmacy 56.4; Estimated Glomerular Filt Rate 54; Glucose Fasting 128 mg/dL (60-99); Potassium 3.4 mmol/L (3.3-5.1); Sodium 137 mmol/L (135-145); Total Protein 6.3 g/dL (6.5-8.0)
[2021-10-17] MEDS: 0.9 % Sodium Chloride Flush 3 ML SYRINGE IVFLUSH ×3 (07:37→23:20)
--- NOTE | 2021-10-17 10:28 | PC.NURSE ---
Order for continuos suction, this nurse verified with DR. Olson. Will monitor.
--- NOTE | 2021-10-17 11:07 | MHC.CM.PN ---
Addendum entered by Tova Tenorio 10/17/21 11:27: CALL BACK FROM HCP/FRIEND DUGLAS HE IS NOW UPDATED ON PLAN FOR PATIENT TO REMAIN A FEW MORE DAYS Original Note: MESSAGE LEFT FOR HCP, DUGLAS AT [phone] ALONG WITH CALL BACK NUMBER FOR THIS BRICKLAYER'S ASSISTANT. MESSAGE LEFT SECONDARY FOR DUGLAS'S REQUEST FOR A CALL.
--- NOTE | 2021-10-17 11:41 | MHC.SLORD ---
Speech Language Pathology Order Status: Patient seen for bedside dysphagia evaluation and recommended NDD2 solids/THIN liquids yesterday. Patient is NPO for barium swallow this morning. Per radiology rn, patient also had NG tube placed. Awaiting results of barium swallow.
--- NOTE | 2021-10-17 13:29 | P.PNIM_ITS ---
Subjective Subjective Date of Service: 10/17/21 Interval History: On barium swallow, has tight crico-esophageal junction. Noted to have SBO with dilated bowel loops. NG tube re-placed. C/o abd distension/discomfort. Review of Systems Review of Systems: Yes all other systems are reviewed and are negative Physical Exam Vital Signs: Vital Signs: Last Vital Signs Temp 98.0 F 10/17/21 11:16 Pulse 90 10/17/21 11:16 Resp 18 10/17/21 11:16 BP 155/65 H 10/17/21 11:16 Pulse Ox 93 10/17/21 11:16 BMI result Body Mass Index 41.8 Gen: in pain HEENT: sclera anicteric, moist mucus membranes Neck: supple Lungs: clear to auscultation bilaterally Heart: regular rate and rhythm, no murmurs Abd: distended, NG tube in place, obese Ext: no edema Skin: warm/well-perfused Neuro: alert and oriented x3, no focal findings Psych: appropriate affect Objective Data Active Medications Acetaminophen (Acetaminophen Supp 650 Mg Supp.Rect) 650 mg [place] Q6H PRN PRN Reason: Pain, Mild (Pain Scale 1-3) Artificial Tears (Artificial Tears 15 Ml Drops) 2 drop EYE-BOTH Q4H PRN PRN Reason: Dry Eyes Enoxaparin Sodium (Enoxaparin Sodium 40 Mg/0.4 Ml Syringe) 40 mg SUBCUT Q24H [facility] Last Admin: 10/17/21 03:34 Dose: 40 mg Documented by: RONALDO Hydromorphone HCl (Hydromorphone Hcl 1 Mg/Ml Syringe) 1 mg IVPUSH Q4H PRN; Protocol PRN Reason: Pain, Severe (Pain Scale 7-10) Last Admin: 10/17/21 10:39 Dose: 1 mg Documented by: ANMOL Ondansetron HCl (Ondansetron Hcl 4 Mg/2 Ml Vial) 4 mg IVPUSH Q8H PRN PRN Reason: Nausea and Vomiting Last Admin: 10/14/21 15:43 Dose: 4 mg Documented by: ANMOL Pharmacy Consult (Consult Rx Perform Med Rec) 1 each MISCELLANE ONCE PRN PRN Reason: Consult order Polyethylene Glycol (Polyethylene Glycol 3350 17 Gm Powd.Pack) 17 gm PO DAILY [facility] Last Admin: 10/17/21 10:11 Dose: Not Given Documented by: MALIK Non-Admin Reason: NPO Comments: NG tube placed now Sodium Chloride (0.9 % Sodium Chloride Flush 3 Ml Syringe) 3 ml IVFLUSH QSHIFT [facility] Last Admin: 10/17/21 07:37 Dose: 3 ml Documented by: RONALDO Labs CBC & Chem 7: 10/17/21 05:49 10/17/21 05:49 Labs: Laboratory Results - last 24 hr 10/17/21 10/17/21 05:49 05:49 MCV 93.9 MCH 30.8 MCHC 32.8 RDW 14.0 Plt Count 237 MPV 10.3 Immature Gran % (Auto) 0.8 H Neut % (Auto) 62.1 Lymph % (Auto) 23.6 [place] % (Auto) 8.7 Eos % (Auto) 4.3 H Baso % (Auto) 0.5 Lymph # (Auto) 2.8 [place] # (Auto) 1.0 Eos # (Auto) 0.5 H Baso # (Auto) 0.1 Abs Immat Gran (auto) 0.09 H Absolute Neuts (auto) 7.4 Absolute Nucleated RBC 0.000 Nucleated RBC % (auto) 0.0 Anion Gap 11 L Estim Creat Clear Calc 56.4 Estimated GFR 54 Random Glucose TNP Fasting Glucose 128 H Calcium 8.9 Total Bilirubin 0.9 AST 42 H D ALT 51 H Alkaline Phosphatase 158 H Total Protein 6.3 L Albumin 3.4 L Assessment and Plan (1) Partial small bowel obstruction: Status: Acute (2) Hypernatremia: Status: Acute (3) Acute kidney injury superimposed on CKD: Status: Acute Plan hospital d#5 76yo M with CKD3, HTN, CHF, prostate CA admitted for pSBO related to prior abd surgeries for ulcer # pSBO - recurrent- NG re-placed, NPO, Gen Surg following # tight crico-esophageal junction - upper GI series done; GI consultation # hyperNa - corrected at appropriate rate with D5W # CKD3 - SCr close to baseline of around 1.4-1.5 # CHF, unknown EF - euvolemic # morbid obesity - weight loss # VTE ppx - LMWH # dispo - eventual return to [facility] for LTC In my professional opinion, patient requires continued hospitalization for the above reasons: SBO requiring NGT Quality Stroke Does the patient have a stroke diagnosis?: No VTE Prior VTE?: No VTE Risk Level:: Medical - moderate - high VTE Device Contraindication: Treatment Not Indicated VTE Drug Contraindication: N/A - Med Ordered
[2021-10-17] MEDS: Artificial Tears 15 ML DROPS 2 DROP EYE-BOTH (15:55)
[2021-10-18] VITALS (9 sets, daily range): BP systolic 130–178; BP diastolic 50–98; PULSE 77–93; RESP 14–20; TEMP 36.4–37.7; O2SAT 90–97
[2021-10-18] MEDS: HYDROmorphone HCl 1 MG/ML SYRINGE IVPUSH ×5 (00:11→23:51)
[2021-10-18] MEDS: Enoxaparin Sodium 40 MG/0.4 ML SYRINGE SUBCUT (02:30)
[2021-10-18] MEDS: diphenhydrAMINE HCL 50 MG/ML VIAL 25 MG IVPUSH (02:30)
[2021-10-18] MEDS: Artificial Tears 15 ML DROPS 2 DROP EYE-BOTH ×2 (07:50→13:11)
[2021-10-18] MEDS: Lactated Ringers 1,000 ML 80 ML IVCONT ×2 (09:05→20:38)
[2021-10-18] MEDS: 0.9 % Sodium Chloride Flush 3 ML SYRINGE IVFLUSH ×3 (09:06→20:41)
--- NOTE | 2021-10-18 09:54 | P.CNGI_ITS ---
History of Present Illness Data of Consult Service Date: 10/18/21 Requesting physician: Jake Olson Primary Care Provider: Vianey Ambrosio MD [facility] Reason for consult: cricopharyngeal narrowing? dysphagia SBO 76 YM admitted to [facility] on 10/11/21 with SBO: This 76-year-old male with past medical history of prostate cancer, hypertension, CKD, asthma, arthritis, cerebral palsy, and chronic constipation who presents to the hospital with complaints of abdominal pain nausea vomiting.? Patient reports his symptoms started yesterday, the abdominal pain is diffuse, 05/27,? has constipation last BM yesterday, has? Nausea and vomiting, low oral intake, no fever or chills, denies any chest pain, no shortness of breath, reports urinary retention with no urgency or dysuria as well as no frequency.? Patient has no numbness tingling, no headache or change in vision, and no lower extremity edema.? He reports that he had a history of blockage in the colon, had leaking in the colon but unaware if he had colectomy.? He has an abdominal hernia On arrival to the ED patient hemodynamically stable Labs are significant for WBC count 17.7, hemoglobin 13.3, hematocrit 38.9, creatinine of 1.99, BUN of 44, no previous for comparison.? Alk-phos of 211, UA negative.? Abdomen pelvic CT shows test and is stomach and proximal small bowel with gradual transition to decompressed small bowel.? Gas and stool throughout the colon, this appearance not convincing for obstruction.? Early or partial obstruction is possible Patient denies symptoms of abdominal pain. He has a hx of heartburn and has been on medications in the past. He notes dysphagia to solids and liquids for the past year and has had past evaluations with an EGD. He admits to couging spells with dysphagia and denies hoarseness. Pt complains of diffuse abdominal pain on admission. He has been passing some gas and had a soft BM yesterday and today. Pt denies recent change in appetite or weight. Patient has Cerebral Palsy and is unable to read or write. He uses a walker for small distances and an electrical scooter. Patient has asthma and CHF Pt is atatus post explor lap x 2 for bowel obstruction. Denies being on chronic anticoagulation. Patient denies smoking and takes alcohol occasionally. Patient is single and has no children and is currently living in a intermediate. Patient denies known family history of colon polyps, colon cancer or other GI malignancies. His HCP is a friend who lives in [place] - Rober Yañez [phone]. IMAGING STUDIES: 10/17/21 BARIUM SWALLOW WITH SMALL-BOWEL FOLLOW-THROUGH SHOWED: Prominent cricoesophageal sphincter indenting the cervical esophagus. No obstruction. No laryngeal penetration or aspiration. ? Distended stomach and proximal duodenal and jejunal loops suspicious for at least partial obstruction in the proximal jejunum. There are segments of small bowel narrowing on the previous CT abdomen exam 10/12/2021. ? Recommend KUB in 4 to 6 hours. 10/12/[address] SCAN SHOWED: Distended stomach and proximal small bowel with gradual transition to decompressed small bowel. Gas and stool throughout the colon. This appearance is not convincing for obstruction, although early or partial obstruction is possible.? Review of Systems Review of Systems: Constitutional:?Reports body ache(s), Denies chills, Reports lethargy and Reports malaise Cardiovascular:?Reports Abdominal Distension, Reports Epigastric Pain, Denies i rregular heart rhythm and Denies orthopnea Respiratory:?Reports no additional respiratory complaints Gastrointestinal:?Reports as per HPI, Reports abdominal pain, Denies hematochezia, Reports constipation, Reports nausea, Reports vomiting and Denies hematemesis Musculoskeletal:?Reports muscle weakness Constitutional: Constitutional: Reports body ache(s), Denies chills, Reports lethargy and Reports malaise Cardiovascular: Cardiovascular: Reports Abdominal Distension, Reports Ep igastric Pain, Denies irregular heart rhythm and Denies orthopnea Respiratory: Respiratory: Reports no additional respiratory complaints Gastrointestinal: Gastrointestinal: Reports as per HPI, Reports abdominal pain, Denies hematochezia, Reports constipation, Reports nausea, Reports vomiting and Denies hematemesis Musculoskeletal: Musculoskeletal: Reports muscle weakness [facility] Past Medical History Medical History Arthritis Asthma Cerebral palsy CHF (congestive heart failure) CKD (chronic kidney disease) Constipation History of small bowel obstruction Hypertension Neoplasm of prostate Family History Family History Other No family history of coronary artery disease Surgical History Surgical History H/O abdominal surgery Social History Social History 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: Other Housing: [facility] Do you presently have visiting nurse or other home services: No Alcohol intake: current Alcohol intake frequency: a few times a month Patient Tobacco Use Status: Former Tobacco user service: No Current occupational status: retired Meds Allergies Allergy/AdvReac Type Severity Reaction Status Date / Time No Known Allergies Allergy Verified 10/11/21 23:34 Active Medications: Current Medications Acetaminophen (Acetaminophen Supp 650 Mg Supp.Rect) 650 mg [place] Q6H PRN PRN Reason: Pain, Mild (Pain Scale 1-3) Artificial Tears (Artificial Tears 15 Ml Drops) 2 drop EYE-BOTH Q4H PRN PRN Reason: Dry Eyes Last Admin: 10/18/21 07:50 Dose: 2 drop Documented by: Enoxaparin Sodium (Enoxaparin Sodium 40 Mg/0.4 Ml Syringe) 40 mg SUBCUT Q24H [facility] Last Admin: 10/18/21 02:30 Dose: 40 mg Documented by: Hydromorphone HCl (Hydromorphone Hcl 1 Mg/Ml Syringe) 1 mg IVPUSH Q3H PRN; Protocol PRN Reason: Pain, Severe (Pain Scale 7-10) Last Admin: 10/18/21 07:48 Dose: 1 mg Documented by: Lactated Ringer's (Lr) 1,000 mls @ 80 mls/hr IVCONT .[id number] [facility] Last Admin: 10/18/21 09:05 Dose: 80 mls/hr Documented by: Ondansetron HCl (Ondansetron Hcl 4 Mg/2 Ml Vial) 4 mg IVPUSH Q8H PRN PRN Reason: Nausea and Vomiting Last Admin: 10/14/21 15:43 Dose: 4 mg Documented by: Pharmacy Consult (Consult Rx Perform Med Rec) 1 each MISCELLANE ONCE PRN PRN Reason: Consult order Polyethylene Glycol (Polyethylene Glycol 3350 17 Gm Powd.Pack) 17 gm PO DAILY [facility] Last Admin: 10/18/21 09:36 Dose: Not Given Documented by: Sodium Chloride (0.9 % Sodium Chloride Flush 3 Ml Syringe) 3 ml IVFLUSH QSHIFT [facility] Last Admin: 10/18/21 09:06 Dose: 3 ml Documented by: Home Medications Medication Instructions Recorded Confirmed Last Taken Type albuterol sulfate 90 mcg/actuation 2 puff INHALATION Q4H PRN 10/12/21 10/12/21 Unknown History aerosol inhaler allopurinol 300 mg tablet 1 tab PO DAILY 10/12/21 10/12/21 Unknown History bisacodyl 5 mg tablet 5 mg PO Q48H 10/12/21 10/12/21 Unknown History cholecalciferol (vitamin D3) 25 25 mcg PO BID 10/12/21 10/12/21 Unknown History mcg (1,000 unit) tablet diltiazem HCl 120 mg 1 cap PO DAILY 10/12/21 10/12/21 Unknown History capsule,extended release 24 hr docusate sodium 100 mg capsule 100 mg PO TID PRN 10/12/21 10/12/21 Unknown History doxazosin 4 mg tablet 1 tab PO DAILY 10/12/21 10/12/21 Unknown History fentanyl 25 mcg/hr transdermal 1 patch TOPICAL Q3D 10/12/21 10/12/21 10/09/21 History patch furosemide 20 mg tablet 1 tab PO DAILY 10/12/21 10/12/21 Unknown History gabapentin 100 mg capsule 1 cap PO DAILY 10/12/21 10/12/21 Unknown History heparin (porcine) 5,000 unit/mL 5,000 unit SUBCUT Q12H 10/12/21 10/12/21 Unknown History injection solution lidocaine 5 % topical cream 1 appl TOPICAL QID PRN 10/12/21 10/12/21 Unknown History (Hemorrhoidal Relief) losartan 50 mg tablet 1 tab PO DAILY 10/12/21 10/12/21 Unknown History metoprolol tartrate 50 mg tablet 1 tab PO BID 10/12/21 10/12/21 Unknown History multivitamin 1 tab PO DAILY 10/12/21 10/12/21 Unknown History naloxegol 25 mg tablet (Movantik) 1 tab PO DAILY 10/12/21 10/12/21 Unknown History omeprazole 40 mg capsule,delayed 1 cap PO DAILY 10/12/21 10/12/21 Unknown History release oxycodone 5 mg tablet 5 mg PO Q12H PRN 10/12/21 10/12/21 Unknown History polyethylene glycol 3350 17 17 g PO Q8H PRN 10/12/21 10/12/21 Unknown History gram/dose oral powder pravastatin 10 mg tablet 1 tab PO BEDTIME 10/12/21 10/12/21 Unknown History sennosides 8.6 mg tablet (Senna 17.2 mg PO DAILY 10/12/21 10/12/21 Unknown History Laxative) tizanidine 2 mg tablet 1 tab PO BEDTIME 10/12/21 10/12/21 Unknown History trazodone 50 mg tablet 25 mg PO BID PRN 10/12/21 10/12/21 Unknown History Physical Exam Vital Signs: Vital Signs: Last Vital Signs Temp 98.6 F 10/18/21 07:47 Pulse 93 10/18/21 07:47 Resp 18 10/18/21 07:47 BP 169/98 H 10/18/21 07:47 Pulse Ox 94 10/18/21 07:47 BMI result Body Mass Index 41.8 Const: General: healthy appearing and no acute distress Nutritional Appearance: average body habitus Orientation/consciousness: patient oriented x3 Limitations: no limitations HENMT: Head: Yes normal to inspection Ears: hearing grossly normal giovany aterally Mouth: Normal oral and palatal mucosa present Eyes: Sclerae: sclerae normal Pupils: Equal, round and reactive pupils present Neck: Neck: Yes normal visual inspection Chest: Chest palpation & inspection: normal inspection of the chest Resp: Effort & Inspection: normal respiratory effort Auscultation: clear to auscultation bilaterally Cardio: Palpation: normal PMI Rate: regular rate Rhythm: regular rhythm Heart sounds: S1 normal heart sound present, S2 normal heart sound present and no murmurs GI: Inspection: Yes distended and Yes scar (long midline scar of past expl lap) Palpation (GI): Soft to palpation, nontender and No hepatosplenomegaly present Auscultation: normal bowel sounds Rectal Exam - Male: Yes deferred Skin: General skin exam: no rashes or lesions noted Neuro: General: patient oriented x3, gait normal and moves all extremities Cranial nerves: Yes Equal, round and reactive pupils present Psych: Appearance: grossly normal Mental Status: mental status grossly normal Results Labs CBC & Chem 7: 10/17/21 05:49 10/17/21 05:49 Assessment and Plan (1) Cricopharyngeal hypertrophy: Status: Acute (2) Oropharyngeal dysphagia: Status: Acute Plan 76-year-old male with prostate cancer, hypertension, CKD, asthma, arthritis, cerebral palsy, and chronic constipation admitted with abdominal pain nausea vomiting.? He reports that he had a history of blockage in the colon, had leaking in the colon but unaware if he had colectomy.? He has an abdominal hernia Abdomen pelvic CT showed distended stomach and proximal small bowel with gradual transition to decompressed small bowel.? Gas and stool throughout the colon, this appearance not convincing for obstruction.? Early or partial obstruction is possible Pt gives a history of dysphagia to solids and liquids for the past year. Barium swallow showed hypertrophy of the cricopharyngeus. RECOMMENDATIONS: Patient was advised further evaluation with an upper endoscopy. Procedure and potential complications including bleeding, perforation, drug reaction aspiration were reviewed with the patient and his healthcare proxy and informed verbal consent was obtained Procedures Date of Service Date of Service: 10/18/21
--- NOTE | 2021-10-18 11:45 | MHC.CM.PN ---
PATIENT IS LIKELY TO RETURN BY FRIDAY TO [facility]. FACILITY MADE AWARE
--- NOTE | 2021-10-18 12:50 | MHC.SLORD ---
Speech Language Pathology Order Status: Patient had NG tube re-placed. He is NPO. Barium swallow showed tight cricoesophageal junction, noted to have SBO w/ dilated bowel loops. Per MD, hold on dysphagia treatment for now. Please re-refer when speech consult is indicated.
--- NOTE | 2021-10-18 13:48 | P.PNIM_ITS ---
Subjective Subjective Date of Service: 10/18/21 Interval History: NG tube fell out overnight C/o abd distension Review of Systems Review of Systems: Yes all other systems are reviewed and are negative Physical Exam Vital Signs: Vital Signs: Last Vital Signs Temp 98.1 F 10/18/21 11:23 Pulse 91 10/18/21 11:23 Resp 18 10/18/21 11:23 BP 150/75 H 10/18/21 11:23 Pulse Ox 90 L 10/18/21 11:23 BMI result Body Mass Index 41.8 Gen: in pain HEENT: sclera anicteric, moist mucus membranes Neck: supple Lungs: clear to auscultation bilaterally Heart: regular rate and rhythm, no murmurs Abd: distended, obese Ext: no edema Skin: warm/well-perfused Neuro: alert and oriented x3, no focal findings Psych: appropriate affect Objective Data Active Medications Acetaminophen (Acetaminophen Supp 650 Mg Supp.Rect) 650 mg [place] Q6H PRN PRN Reason: Pain, Mild (Pain Scale 1-3) Artificial Tears (Artificial Tears 15 Ml Drops) 2 drop EYE-BOTH Q4H PRN PRN Reason: Dry Eyes Last Admin: 10/18/21 13:11 Dose: 2 drop Documented by: ANMOL Enoxaparin Sodium (Enoxaparin Sodium 40 Mg/0.4 Ml Syringe) 40 mg SUBCUT Q24H [facility] Last Admin: 10/18/21 02:30 Dose: 40 mg Documented by: KATHY Hydromorphone HCl (Hydromorphone Hcl 1 Mg/Ml Syringe) 1 mg IVPUSH Q3H PRN; Protocol PRN Reason: Pain, Severe (Pain Scale 7-10) Last Admin: 10/18/21 11:08 Dose: 1 mg Documented by: ANMOL Lactated Ringer's (Lr) 1,000 mls @ 80 mls/hr IVCONT .[id number] [facility] Last Admin: 10/18/21 09:05 Dose: 80 mls/hr Documented by: ANMOL Ondansetron HCl (Ondansetron Hcl 4 Mg/2 Ml Vial) 4 mg IVPUSH Q8H PRN PRN Reason: Nausea and Vomiting Last Admin: 10/14/21 15:43 Dose: 4 mg Documented by: ANMOL Pharmacy Consult (Consult Rx Perform Med Rec) 1 each MISCELLANE ONCE PRN PRN Reason: Consult order Polyethylene Glycol (Polyethylene Glycol 3350 17 Gm Powd.Pack) 17 gm PO DAILY [facility] Last Admin: 10/18/21 09:36 Dose: Not Given Documented by: ANMOL Non-Admin Reason: NPO Sodium Chloride (0.9 % Sodium Chloride Flush 3 Ml Syringe) 3 ml IVFLUSH QSHIFT [facility] Last Admin: 10/18/21 09:06 Dose: 3 ml Documented by: ANMOL Labs CBC & Chem 7: 10/17/21 05:49 10/17/21 05:49 Assessment and Plan (1) Partial small bowel obstruction: Status: Acute (2) Hypernatremia: Status: Acute (3) Acute kidney injury superimposed on CKD: Status: Acute Plan hospital d#6 76yo M with CKD3, HTN, CHF, prostate CA admitted for pSBO related to prior abd surgeries for ulcer # pSBO - recurrent- NPO, Gen Surg following, repeat KUB now, give IV fluids # tight crico-esophageal junction - GI consulted, plan EGD today # hyperNa - corrected at appropriate rate with D5W # CKD3 - SCr close to baseline of around 1.4-1.5 # CHF, unknown EF - euvolemic # morbid obesity - weight loss # VTE ppx - LMWH # dispo - eventual return to [facility] for LTC In my professional opinion, patient requires continued hospitalization for the above reasons: SBO requiring NGT Quality Stroke Does the patient have a stroke diagnosis?: No VTE Prior VTE?: No VTE Risk Level:: Medical - moderate - high VTE Device Contraindication: Treatment Not Indicated VTE Drug Contraindication: N/A - Med Ordered
--- NOTE | 2021-10-18 14:08 | P.CONAN_ITS ---
[facility] Active Problems Active Problems: All Active Problems (Updated 10/14/21 @ 12:27 by Andrés Barraza DO) Hypernatremia (Acute) Acute kidney injury superimposed on CKD (Acute) Partial small bowel obstruction (Acute) Abdominal pain (Acute) Abdominal wall hernia (Acute) Moderate nausea and vomiting (Acute) Past Medical History Medical History Arthritis Asthma Cerebral palsy CHF (congestive heart failure) CKD (chronic kidney disease) Constipation History of small bowel obstruction Hypertension Neoplasm of prostate Family History Family History Other No family history of coronary artery disease Family history of problems with anesthesia: No Surgical History Surgical History H/O abdominal surgery History of Problems with Anesthesia: No Social History Social History 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: Other Housing: Senior Care Do you presently have visiting nurse or other home services: No Alcohol intake: current Patient Tobacco Use Status: Never used Tobacco service: No Current occupational status: retired [employer] Allergies Allergy/AdvReac Type Severity Reaction Status Date / Time No Known Allergies Allergy Verified 10/11/21 23:34 Active Medications: Current Medications Acetaminophen (Acetaminophen Supp 650 Mg Supp.Rect) [address] Q6H PRN PRN Reason: Pain, Mild (Pain Scale 1-3) Artificial Tears (Artificial Tears 15 Ml Drops) 2 drop EYE-BOTH Q4H PRN PRN Reason: Dry Eyes Last Admin: 10/18/21 13:11 Dose: 2 drop Documented by: Enoxaparin Sodium (Enoxaparin Sodium 40 Mg/0.4 Ml Syringe) 40 mg SUBCUT Q24H KERRI Last Admin: 10/18/21 02:30 Dose: 40 mg Documented by: Hydromorphone HCl (Hydromorphone Hcl 1 Mg/Ml Syringe) 1 mg IVPUSH Q3H PRN; Protocol PRN Reason: Pain, Severe (Pain Scale 7-10) Last Admin: 10/18/21 11:08 Dose: 1 mg Documented by: Lactated Ringer's (Lr) 1,000 mls @ 80 mls/hr IVCONT .[id number] [facility] Last Admin: 10/18/21 09:05 Dose: 80 mls/hr Documented by: Ondansetron HCl (Ondansetron Hcl 4 Mg/2 Ml Vial) 4 mg IVPUSH Q8H PRN PRN Reason: Nausea and Vomiting Last Admin: 10/14/21 15:43 Dose: 4 mg Documented by: Pharmacy Consult (Consult Rx Perform Med Rec) 1 each MISCELLANE ONCE PRN PRN Reason: Consult order Polyethylene Glycol (Polyethylene Glycol 3350 17 Gm Powd.Pack) 17 gm PO DAILY [facility] Last Admin: 10/18/21 09:36 Dose: Not Given Documented by: Sodium Chloride (0.9 % Sodium Chloride Flush 3 Ml Syringe) 3 ml IVFLUSH QSHIFT [facility] Last Admin: 10/18/21 09:06 Dose: 3 ml Documented by: Home Medications Medication Instructions Recorded Confirmed Last Taken Type albuterol sulfate 90 mcg/actuation 2 puff INHALATION Q4H PRN 10/12/21 10/12/21 Unknown History aerosol inhaler allopurinol 300 mg tablet 1 tab PO DAILY 10/12/21 10/12/21 Unknown History bisacodyl 5 mg tablet 5 mg PO Q48H 10/12/21 10/12/21 Unknown History cholecalciferol (vitamin D3) 25 25 mcg PO BID 10/12/21 10/12/21 Unknown History mcg (1,000 unit) tablet diltiazem HCl 120 mg 1 cap PO DAILY 10/12/21 10/12/21 Unknown History capsule,extended release 24 hr docusate sodium 100 mg capsule 100 mg PO TID PRN 10/12/21 10/12/21 Unknown History doxazosin 4 mg tablet 1 tab PO DAILY 10/12/21 10/12/21 Unknown History fentanyl 25 mcg/hr transdermal 1 patch TOPICAL Q3D 10/12/21 10/12/21 10/09/21 History patch furosemide 20 mg tablet 1 tab PO DAILY 10/12/21 10/12/21 Unknown History gabapentin 100 mg capsule 1 cap PO DAILY 10/12/21 10/12/21 Unknown History heparin (porcine) 5,000 unit/mL 5,000 unit SUBCUT Q12H 10/12/21 10/12/21 Unknown History injection solution lidocaine 5 % topical cream 1 appl TOPICAL QID PRN 10/12/21 10/12/21 Unknown History (Hemorrhoidal Relief) losartan 50 mg tablet 1 tab PO DAILY 10/12/21 10/12/21 Unknown History metoprolol tartrate 50 mg tablet 1 tab PO BID 10/12/21 10/12/21 Unknown History multivitamin 1 tab PO DAILY 10/12/21 10/12/21 Unknown History naloxegol 25 mg tablet (Movantik) 1 tab PO DAILY 10/12/21 10/12/21 Unknown History omeprazole 40 mg capsule,delayed 1 cap PO DAILY 10/12/21 10/12/21 Unknown History release oxycodone 5 mg tablet 5 mg PO Q12H PRN 10/12/21 10/12/21 Unknown History polyethylene glycol 3350 17 17 g PO Q8H PRN 10/12/21 10/12/21 Unknown History gram/dose oral powder pravastatin 10 mg tablet 1 tab PO BEDTIME 10/12/21 10/12/21 Unknown History sennosides 8.6 mg tablet (Senna 17.2 mg PO DAILY 10/12/21 10/12/21 Unknown History Laxative) tizanidine 2 mg tablet 1 tab PO BEDTIME 10/12/21 10/12/21 Unknown History trazodone 50 mg tablet 25 mg PO BID PRN 10/12/21 10/12/21 Unknown History Exam Exam Date and Time: October 18, 2021 1408 Height,Weight and Vital Signs: Height 5 ft 5 in Weight 114.2 kg Last Vital Signs Temp 98.1 F 10/18/21 11:23 Pulse 91 10/18/21 11:23 Resp 18 10/18/21 11:23 BP 150/75 H 10/18/21 11:23 Pulse Ox 90 L 10/18/21 11:23 Pertinent Lab Results Pertinent Lab Results: Laboratory Tests 10/12/21 10/12/21 10/12/21 00:26 00:26 00:26 WBC 17.7 H RBC 4.25 L Hgb 13.3 L Hct 38.9 L MCV 91.5 MCH 31.3 MCHC 34.2 RDW 14.6 Plt Count 277 MPV 10.4 Immature Gran % (Auto) 0.3 Neut % (Auto) 81.9 H Lymph % (Auto) 10.8 L [place] % (Auto) 6.4 Eos % (Auto) 0.3 Baso % (Auto) 0.3 Lymph # (Auto) 1.9 [place] # (Auto) 1.1 Eos # (Auto) 0.1 Baso # (Auto) 0.1 Abs Immat Gran (auto) 0.06 H Absolute Neuts (auto) 14.5 H Absolute Nucleated RBC 0.000 Nucleated RBC % (auto) 0.0 Sodium 143 Potassium 4.4 Chloride 102 Carbon Dioxide 27 Anion Gap 18 BUN 44 H Creatinine 1.99 H Estim Creat Clear Calc 36.7 Estimated GFR 33 Random Glucose 166 H Fasting Glucose Calcium 9.6 Total Bilirubin 0.5 Direct Bilirubin 0.2 AST 18 ALT 22 Alkaline Phosphatase 211 H Total Protein 7.8 Albumin 4.2 Lipase 42 Urine Color Urine Appearance Urine pH Ur Specific Blairs Urine Protein Urine Glucose (UA) Urine Ketones Urine Blood Urine Nitrite Ur Leukocyte Esterase Urine RBC Urine WBC Ur Squamous Epith Cells Urine Bacteria Hyaline Casts Urine Mucus Stool Occult Blood COVID-19 ([facility]) Negative COVID-19 Clin Com See Note 10/12/21 10/12/21 10/12/21 05:42 06:00 06:00 WBC 16.8 H RBC 4.15 L Hgb 12.9 L Hct 38.5 L MCV 92.8 MCH 31.1 MCHC 33.5 RDW 14.7 Plt Count 284 MPV 10.8 Immature Gran % (Auto) 0.5 H Neut % (Auto) 84.0 H Lymph % (Auto) 8.3 L [place] % (Auto) 6.8 Eos % (Auto) 0.1 Baso % (Auto) 0.3 Lymph # (Auto) 1.4 [place] # (Auto) 1.1 Eos # (Auto) 0.0 Baso # (Auto) 0.1 Abs Immat Gran (auto) 0.08 H Absolute Neuts (auto) 14.1 H Absolute Nucleated RBC 0.000 Nucleated RBC % (auto) 0.0 Sodium 143 Potassium 4.0 Chloride 102 Carbon Dioxide 27 Anion Gap 18 BUN 44 H Creatinine 1.85 H Estim Creat Clear Calc 39.5 Estimated GFR 36 Random Glucose 192 H Fasting Glucose Calcium 9.0 D Total Bilirubin Direct Bilirubin AST ALT Alkaline Phosphatase Total Protein Albumin Lipase Urine Color YELLOW Urine Appearance CLEAR Urine pH 6.0 Ur Specific Blairs >= 1.030 H Urine Protein 2+ H Urine Glucose (UA) NEG Urine Ketones NEG Urine Blood NEG Urine Nitrite NEG Ur Leukocyte Esterase NEG Urine RBC 0 Urine WBC 1-4 Ur Squamous Epith Cells 2+ Urine Bacteria 2+ Hyaline Casts 0-2 Urine Mucus 2+ Stool Occult Blood COVID-19 ([facility]) COVID-19 Clin Com 10/12/21 10/13/21 10/13/21 Unknown 05:55 05:55 WBC 15.2 H RBC 4.16 L Hgb 12.7 L Hct 39.7 L MCV 95.4 MCH 30.5 MCHC 32.0 RDW 14.9 Plt Count 269 MPV 10.5 Immature Gran % (Auto) 0.7 H Neut % (Auto) 70.2 Lymph % (Auto) 19.4 L [place] % (Auto) 7.7 Eos % (Auto) 1.6 Baso % (Auto) 0.4 Lymph # (Auto) 3.0 [place] # (Auto) 1.2 Eos # (Auto) 0.2 Baso # (Auto) 0.1 Abs Immat Gran (auto) 0.10 H Absolute Neuts (auto) 10.7 H Absolute Nucleated RBC 0.000 Nucleated RBC % (auto) 0.0 Sodium 148 H Potassium 3.9 Chloride 101 Carbon Dioxide 33 H Anion Gap 18 BUN 47 H Creatinine 1.99 H Estim Creat Clear Calc 36.8 Estimated GFR 33 Random Glucose Fasting Glucose 155 H Calcium 9.4 Total Bilirubin 0.6 Direct Bilirubin AST 15 ALT 17 Alkaline Phosphatase 181 H Total Protein 7.2 Albumin 3.9 Lipase Urine Color Urine Appearance Urine pH Ur Specific Blairs Urine Protein Urine Glucose (UA) Urine Ketones Urine Blood Urine Nitrite Ur Leukocyte Esterase Urine RBC Urine WBC Ur Squamous Epith Cells Urine Bacteria Hyaline Casts Urine Mucus Stool Occult Blood NEGATIVE COVID-19 ([facility]) COVID-19 Clin Com 10/13/21 10/14/21 10/14/21 15:09 06:02 06:02 WBC 12.7 H RBC 3.84 L Hgb 11.9 L Hct 36.9 L MCV 96.1 MCH 31.0 MCHC 32.2 RDW 14.7 Plt Count 263 MPV 10.4 Immature Gran % (Auto) 0.5 H Neut % (Auto) 65.2 Lymph % (Auto) 24.0 [place] % (Auto) 8.2 Eos % (Auto) 1.7 Baso % (Auto) 0.4 Lymph # (Auto) 3.1 [place] # (Auto) 1.1 Eos # (Auto) 0.2 Baso # (Auto) 0.1 Abs Immat Gran (auto) 0.07 H Absolute Neuts (auto) 8.3 Absolute Nucleated RBC 0.000 Nucleated RBC % (auto) 0.0 Sodium 149 H 152 H Potassium 3.8 3.6 Chloride 102 105 Carbon Dioxide 35 H 35 H Anion Gap 16 16 BUN 46 H 45 H Creatinine 1.84 H 1.82 H Estim Creat Clear Calc 39.8 40.3 Estimated GFR 36 36 Random Glucose 160 H Fasting Glucose 166 H Calcium 9.2 9.4 Total Bilirubin 0.5 Direct Bilirubin AST 16 ALT 16 Alkaline Phosphatase 165 H Total Protein 7.2 Albumin 3.8 Lipase Urine Color Urine Appearance Urine pH Ur Specific Blairs Urine Protein Urine Glucose (UA) Urine Ketones Urine Blood Urine Nitrite Ur Leukocyte Esterase Urine RBC Urine WBC Ur Squamous Epith Cells Urine Bacteria Hyaline Casts Urine Mucus Stool Occult Blood COVID-19 ([facility]) COVID-19 Clin Com 10/14/21 10/15/21 10/15/21 15:01 04:12 04:12 WBC 11.6 H RBC 3.58 L Hgb 11.0 L Hct 35.4 L MCV 98.9 H MCH 30.7 MCHC 31.1 RDW 14.6 Plt Count 243 MPV 10.7 Immature Gran % (Auto) 0.6 H Neut % (Auto) 65.3 Lymph % (Auto) 22.7 [place] % (Auto) 7.8 Eos % (Auto) 2.9 Baso % (Auto) 0.7 Lymph # (Auto) 2.6 [place] # (Auto) 0.9 Eos # (Auto) 0.3 Baso # (Auto) 0.1 Abs Immat Gran (auto) 0.07 H Absolute Neuts (auto) 7.6 Absolute Nucleated RBC 0.000 Nucleated RBC % (auto) 0.0 Sodium 150 H 142 Potassium 3.7 3.3 Chloride 103 99 Carbon Dioxide 35 H 35 H Anion Gap 16 11 L BUN 38 H 32 H Creatinine 1.69 H 1.59 H Estim Creat Clear Calc 43.4 46.1 Estimated GFR 40 43 Random Glucose 143 H Fasting Glucose 168 H Calcium 9.5 8.8 D Total Bilirubin 0.6 Direct Bilirubin AST 17 ALT 15 Alkaline Phosphatase 149 H Total Protein 6.4 L Albumin 3.5 Lipase Urine Color Urine Appearance Urine pH Ur Specific Blairs Urine Protein Urine Glucose (UA) Urine Ketones Urine Blood Urine Nitrite Ur Leukocyte Esterase Urine RBC Urine WBC Ur Squamous Epith Cells Urine Bacteria Hyaline Casts Urine Mucus Stool Occult Blood COVID-19 ([facility]) COVID-19 Clin Com 10/15/21 10/15/21 10/16/21 11:09 15:08 06:55 WBC 10.4 RBC 3.75 L Hgb 11.4 L Hct 35.3 L MCV 94.1 MCH 30.4 MCHC 32.3 RDW 14.1 Plt Count 227 MPV 10.2 Immature Gran % (Auto) 0.5 H Neut % (Auto) 63.4 Lymph % (Auto) 21.9 [place] % (Auto) 9.4 Eos % (Auto) 4.1 H Baso % (Auto) 0.7 Lymph # (Auto) 2.3 [place] # (Auto) 1.0 Eos # (Auto) 0.4 Baso # (Auto) 0.1 Abs Immat Gran (auto) 0.05 H Absolute Neuts (auto) 6.6 Absolute Nucleated RBC 0.000 Nucleated RBC % (auto) 0.0 Sodium 141 142 Potassium Chloride Carbon Dioxide Anion Gap BUN Creatinine Estim Creat Clear Calc Estimated GFR Random Glucose Fasting Glucose Calcium Total Bilirubin Direct Bilirubin AST ALT Alkaline Phosphatase Total Protein Albumin Lipase Urine Color Urine Appearance Urine pH Ur Specific Blairs Urine Protein Urine Glucose (UA) Urine Ketones Urine Blood Urine Nitrite Ur Leukocyte Esterase Urine RBC Urine WBC Ur Squamous Epith Cells Urine Bacteria Hyaline Casts Urine Mucus Stool Occult Blood COVID-19 ([facility]) COVID-19 Clin Com 10/16/21 10/17/21 10/17/21 06:55 05:49 05:49 WBC 12.0 H RBC 3.60 L Hgb 11.1 L Hct 33.8 L MCV 93.9 MCH 30.8 MCHC 32.8 RDW 14.0 Plt Count 237 MPV 10.3 Immature Gran % (Auto) 0.8 H Neut % (Auto) 62.1 Lymph % (Auto) 23.6 [place] % (Auto) 8.7 Eos % (Auto) 4.3 H Baso % (Auto) 0.5 Lymph # (Auto) 2.8 [place] # (Auto) 1.0 Eos # (Auto) 0.5 H Baso # (Auto) 0.1 Abs Immat Gran (auto) 0.09 H Absolute Neuts (auto) 7.4 Absolute Nucleated RBC 0.000 Nucleated RBC % (auto) 0.0 Sodium 139 137 Potassium 3.4 3.4 Chloride 99 97 Carbon Dioxide 30 H 32 H Anion Gap 13 11 L BUN 23 H 19 H Creatinine 1.27 1.30 Estim Creat Clear Calc 57.7 56.4 Estimated GFR 55 54 Random Glucose TNP TNP Fasting Glucose 144 H 128 H Calcium 8.9 8.9 Total Bilirubin 0.8 0.9 Direct Bilirubin AST 27 D 42 H D ALT 25 51 H Alkaline Phosphatase 153 H 158 H Total Protein 6.4 L 6.3 L Albumin 3.5 3.4 L Lipase Urine Color Urine Appearance Urine pH Ur Specific Blairs Urine Protein Urine Glucose (UA) Urine Ketones Urine Blood Urine Nitrite Ur Leukocyte Esterase Urine RBC Urine WBC Ur Squamous Epith Cells Urine Bacteria Hyaline Casts Urine Mucus Stool Occult Blood COVID-19 ([facility]) COVID-19 Clin Com Airway Mallampati Class: III TM Dist: >3cm Neck ROM: Full Loose/Missing/Broken Teeth: Yes, Upper and Lower Assessment and Plan Assessment Anesthesia Assessment: Anesthesia Plan Discussed and Chart Reviewed Final Anesthetic Review Family History of Problems with Anesthesia: No History of Problems with Anesthesia: No NPO: Yes ASA Class: III Final Preanesthetic Review: Meds/Allgs Chart Reviewed, Consent Obtained/Reviewed and Anes Risks/Benef Reviewed Patient Risk: Intermediate Procedure Risk: Intermediate Anesthetic Plan Anesthetic Plan: MAC: Disposition: Standard PACU and Inp. Admit - Standard Bed
--- NOTE | 2021-10-18 14:40 | P.OP_ITS ---
Operative Note Operative Note Date of Service: 10/18/21 Narrative: Pre-op diagnosis: dysphagia Post-op diagnosis:?other (Erosive esophagitis, Hiatal hernia, gastric erosions, gastric polyps, gastritis) Procedure: FLEXIBLE TRANSORAL UPPER GASTROINTESTINAL ENDOSCOPY WITH BIOPSIES Consent:?Indications for the procedure and potential complications of bleeding, perforation, reaction to medications and missed diagnosis were discussed with the patient and informed consent was obtained. Instrument:?Olympus GIF H 190 mid size upper endoscope Monitoring: Vital signs and clinical assessment, continuous EKG monitoring, Pulse oximetry, Carbon Dioxide monitoring and blood pressure monitoring were done throughout the procedure. Procedure:?The patient was placed in the left lateral decubitis position and pre-procedure medications were administered and a bite block was placed. The endoscope was inserted into the mouth and advanced under direct vision to the third part of duodenum. A careful inspection was made as the upper endoscope was withdrawn including a retroflexed examination of the proximal stomach; Findings and interventions are described below. Findings: Larynx:? Marked edema of arytenoid cartilages - likely due to severe GERD versus NG tube trauma Esophagus: GE junction at 35 cms, hiatal hernia 35 to 40 cms.? Linear chronic appearing erosions from? 30 to 35 cms. Stomach: Moderate diffuse gastric erythema with nodular appearing gastric mucosa. Biopsies were obtained from the antrum and body of the stomach. Grade 4 flap valve on retroflexed examination of the cardia. Linear hemorrhagic appearing erosions on gastric side of hiatal hernia sac. Duodenum: Normal bulb and descending duodenum Intervention: Biopsies as noted above Impression and Post Procedure Diagnosis: Endoscopy Findings: LARYNX: Marked edema of arytenoid cartilages - likely due to severe GERD versus NG tube trauma ESOPHAGUS: Large hiatal hernia with erosive esophagitis STOMACH: Moderate diffuse gastric erythema with nodular appearing gastric mucosa. Biopsies were obtained from the antrum and body of the stomach. Grade 4 flap valve on retroflexed examination of the cardia. Linear hemorrhagic appearing erosions on gastric side of hiatal hernia sac. Plan: Start Omeprazole 20 mg twice daily for severe GERD. Patient to schedule a FU appointment in the GI Clinic with Pb Stokes M.D or GI OUTSIDE [employer]AR SALES CONSULTANT or PA. Repeat EGD in 3 months to confirm esophagitis has healed Above findings were reviewed with the patient and his HCP - Rober Yañez at [phone]. Surgeon: Pb Stokes MD Anesthesia:?MAC (Jennifer Urena, MANAGER INTEGRITY) Was an Manager Hospitality used for this Procedure?:?No Manager Hospitality:?Miracle Hernandez Estimated blood loss (mL):?0 Pathology:?other (a: antral bxs r/o h.pylori? b: gastric polyp? c: gastric body) Condition:?stable Disposition:?PACU
[2021-10-18] MEDS: Pantoprazole Sodium 40 MG/10 ML VIAL IVPUSH (16:57)
[2021-10-19 03:48] VITALS: BP 176/81; PULSE 84; RESP 20; TEMP 36.1; O2SAT 96
[2021-10-19] MEDS: Enoxaparin Sodium 40 MG/0.4 ML SYRINGE SUBCUT (04:21)
[2021-10-19 05:51] LABS: Hematocrit 33.6 % (42.0-52.0); Hemoglobin 11.1 g/dl (14.0-18.0); Mean Corpuscular Hemoglobin 31.1 pg (27.0-33.0); Mean Corpuscular Volume 94.1 fL (80.0-98.0); Mean Platelet Volume 10.6 fL (9.4-12.4); Platelet Count 230 X10*3/uL (160-400); Red Blood Count 3.57 X10*6/uL (4.60-5.80); Red Cell Distribution Width 14.2 % (11.0-16.0); White Blood Count 10.5 X10*3/uL (4.8-10.8)
[2021-10-19] MEDS: Pantoprazole Sodium 40 MG/10 ML VIAL IVPUSH ×2 (06:00→15:33)
[2021-10-19 06:49] VITALS: BP 170/90; PULSE 77; RESP 19; TEMP 36.3; O2SAT 97
[2021-10-19 06:56] LABS: Anion Gap 15 (12-20); Blood Urea Nitrogen 22 mg/dL (9-16); Calcium 8.7 mg/dL (8.4-10.2); Carbon Dioxide 30 mmol/L (22-29); Chloride 100 mmol/L (96-108); Creatinine Clr Calc Pharmacy 55.6; Estimated Glomerular Filt Rate 53; Glucose Random 102 mg/dL (60-115); Potassium 3.7 mmol/L (3.3-5.1); Sodium 141 mmol/L (135-145)
[2021-10-19] MEDS: HYDROmorphone HCl 1 MG/ML SYRINGE IVPUSH ×3 (07:38→18:34)
[2021-10-19] MEDS: 0.9 % Sodium Chloride Flush 3 ML SYRINGE IVFLUSH ×2 (07:43→15:33)
[2021-10-19 11:14] VITALS: BP 172/88; PULSE 81; RESP 20; TEMP 37.1; O2SAT 97
[2021-10-19] MEDS: Lactated Ringers 1,000 ML 80 ML IVCONT (12:43)
[2021-10-19] MEDS: dilTIAZem HCL 30 MG TABLET PO ×3 (12:58→20:46)
--- NOTE | 2021-10-19 13:13 | P.PNIM_ITS ---
Subjective Subjective Date of Service: 10/19/21 Interval History: Complaining of abdominal pain, feels like lump in throat, is NPO ,denies nausea vomiting moving bowels daily. NG tube fell off 24 hours ago. Review of Systems Review of Systems: Yes all other systems are reviewed and are negative Physical Exam Vital Signs: Vital Signs: Last Vital Signs Temp 98.7 F 10/19/21 11:14 Pulse 81 10/19/21 11:14 Resp 20 10/19/21 11:14 BP 172/88 H 10/19/21 11:14 Pulse Ox 97 10/19/21 11:14 BMI result Body Mass Index 41.8 Const: Other: Gen: Awake alert, mild distress due to abdominal pain Neck: supple, no JVD Lungs: clear to auscultation bilaterally Heart: regular rate and rhythm, no murmurs Abd: distended, obese, localized area of right upper quadrant tenderness, bowel sounds audible, no guarding, no rigidity Ext: no edema Skin: warm/well-perfused Neuro: alert and oriented x3, no focal findings Psych: appropriate affect Objective Data Active Medications Acetaminophen (Acetaminophen Supp 650 Mg Supp.Rect) 650 mg [place] Q6H PRN PRN Reason: Pain, Mild (Pain Scale 1-3) Artificial Tears (Artificial Tears 15 Ml Drops) 2 drop EYE-BOTH Q4H PRN PRN Reason: Dry Eyes Last Admin: 10/18/21 13:11 Dose: 2 drop Documented by: ANMOL Diltiazem HCl (Diltiazem Hcl 30 Mg Tablet) 30 mg PO QID [facility]; Protocol Last Admin: 10/19/21 12:58 Dose: 30 mg Documented by: JAYDON Enoxaparin Sodium (Enoxaparin Sodium 40 Mg/0.4 Ml Syringe) 40 mg SUBCUT Q24H [facility] Last Admin: 10/19/21 04:21 Dose: 40 mg Documented by: KATHY Hydromorphone HCl (Hydromorphone Hcl 1 Mg/Ml Syringe) 1 mg IVPUSH Q3H PRN; Protocol PRN Reason: Pain, Severe (Pain Scale 7-10) Last Admin: 10/19/21 12:56 Dose: 1 mg Documented by: JAYDON Lactated Ringer's (Lr) 1,000 mls @ 50 mls/hr IVCONT .Q20H [facility] Last Admin: 10/19/21 12:43 Dose: 80 mls/hr Documented by: JAYDON Ondansetron HCl (Ondansetron Hcl 4 Mg/2 Ml Vial) 4 mg IVPUSH Q8H PRN PRN Reason: Nausea and Vomiting Last Admin: 10/14/21 15:43 Dose: 4 mg Documented by: ANMOL Pantoprazole Sodium (Pantoprazole Sodium 40 Mg/10 Ml Vial) 40 mg IVPUSH BID@0630,1630 [facility] Last Admin: 10/19/21 06:00 Dose: 40 mg Documented by: KATHY Pharmacy Consult (Consult Rx Perform Med Rec) 1 each MISCELLANE ONCE PRN PRN Reason: Consult order Polyethylene Glycol (Polyethylene Glycol 3350 17 Gm Powd.Pack) 17 gm PO DAILY [facility] Last Admin: 10/19/21 07:32 Dose: Not Given Documented by: JAYDON Non-Admin Reason: NPO Sodium Chloride (0.9 % Sodium Chloride Flush 3 Ml Syringe) 3 ml IVFLUSH QSHIFT [facility] Last Admin: 10/19/21 07:43 Dose: 3 ml Documented by: JAYDON Labs CBC & Chem 7: 10/19/21 05:13 10/19/21 05:13 Labs: Laboratory Results - last 24 hr 10/19/21 10/19/21 05:13 05:13 MCV 94.1 MCH 31.1 MCHC 33.0 RDW 14.2 Plt Count 230 MPV 10.6 Absolute Nucleated RBC 0.000 Nucleated RBC % (auto) 0.0 Anion Gap 15 Estim Creat Clear Calc 55.6 Estimated GFR 53 Random Glucose 102 Calcium 8.7 Assessment and Plan (1) Partial small bowel obstruction: Status: Acute (2) Hypernatremia: Status: Acute (3) Acute kidney injury superimposed on CKD: Status: Acute Plan 76yo M with CKD3, HTN, CHF, prostate CA admitted for pSBO related to prior abd surgeries for ulcer # pSBO - repeat KUB showed progression of barium into the colon with some persistent distention of multiple small-bowel loops , good bowel sounds moving bowels, no nausea, no vomiting, will give trial of clear liquids continue IV fluids monitor electrolytes Re-consult surgery if unable to tolerate liquids, follow closely for right upper quadrant pain, recent CT abdomen showed unremarkable gallbladder with no evidence of radiopaque stones, no focal hepatic lesions or biliary ductal dilatation # tight crico-esophageal junction - status post upper endoscopy 10/18/21 that showed erosive esophagitis, hiatal hernia, gastric erosions and gastritis , continue IV Protonix transition to by mouth tolerate clear liquids # hyperNa - corrected at appropriate rate with D5W sodium 141 today # CKD3 - SCr at baseline # CHF, unknown EF - euvolemic, watch closely while on IV fluid # morbid obesity - weight loss recommended # VTE ppx - LMWH # dispo - eventual return to [facility] for LTC In my professional opinion, patient requires continued hospitalization for the above reasons: SBO with abdominal pain, on IV fluid given trial of clear liquids today, will watch closely for tolerance. Quality Stroke Does the patient have a stroke diagnosis?: No VTE Prior VTE?: No VTE Risk Level:: Medical - moderate - high VTE Device Contraindication: Treatment Not Indicated VTE Drug Contraindication: N/A - Med Ordered
[2021-10-19 15:17] VITALS: BP 152/69; PULSE 90; RESP 18; TEMP 36.4; O2SAT 95
--- NOTE | 2021-10-19 15:23 | MHC.CM.PN ---
NURSE INSIGHTS STRATEGIST NOTE ELECTRONIC MEDICAL RECORD REVIEWED ALONG WITH CASE DISCUSSED ON MULTIPLE DISCIPLAINRY ROUNDS , ( PATIENT HERMAN DOCUMENTSDEION ADMITTED WITH SMALL BOWEL OBSTRUCTIOSN LATER FOUND TO HAVE GASTRITIS AND ESOPHAGITIS HIATAL HERNIA ) PATIENTCONTINUES TO BE ON IV FLUIDS , IV ANALGEICS, IV PROTONIXS AND IV ANTIEMETICS [facility]CHARGE PLAN [facility] WHERE HE CURRENTLY RESIDES RECIVED PHONE CALL FROM DEPT OF DEVELOPMENTAL DISABILITIES PAM PURDY [phone] SHE CONTINUES TO FOLLOW PATIENT AND WPULD LIKE CALL BACK WHEN DISCHARGED ,
[2021-10-19 19:43] VITALS: BP 128/69; PULSE 75; RESP 18; TEMP 36.4; O2SAT 96
[2021-10-20] VITALS (7 sets, daily range): BP systolic 142–182; BP diastolic 68–86; PULSE 62–82; RESP 16–18; TEMP 36.1–37; O2SAT 94–98
[2021-10-20] MEDS: Enoxaparin Sodium 40 MG/0.4 ML SYRINGE SUBCUT (02:36)
[2021-10-20] MEDS: Lactated Ringers 1,000 ML 50 ML IVCONT (05:03)
[2021-10-20] MEDS: Pantoprazole Sodium 40 MG/10 ML VIAL IVPUSH (05:05)
[2021-10-20] MEDS: HYDROmorphone HCl 1 MG/ML SYRINGE IVPUSH ×3 (05:05→10:56)
[2021-10-20] MEDS: Artificial Tears 15 ML DROPS 2 DROP EYE-BOTH (05:11)
[2021-10-20] MEDS: polyethylene glycoL 3350 17 GM POWD.PACK PO (08:35)
[2021-10-20] MEDS: dilTIAZem HCL 30 MG TABLET PO ×4 (08:35→20:09)
--- NOTE | 2021-10-20 11:46 | P.PNIM_ITS ---
Subjective Subjective Date of Service: 10/20/21 Interval History: Patient complaining of lump in throat, although able to tolerate clear liquids without nausea vomiting or regurgitation, have daily bowel movement, complaining of abdominal pain but improving, denies fever chills no other acute events overnight. Review of Systems Review of Systems: Yes all other systems are reviewed and are negative Physical Exam Vital Signs: Vital Signs: Last Vital Signs Temp 97.9 F 10/20/21 11:07 Pulse 67 10/20/21 11:07 Resp 18 10/20/21 11:07 BP 182/86 H 10/20/21 11:07 Pulse Ox 94 10/20/21 11:07 BMI result Body Mass Index 41.8 Const: Other: Gen:? Awake alert, no acute distress Neck: supple, no JVD, no palpable c yst or lymph nodes Lungs: clear to a uscultation bilate rally Heart: regul ar rate and rhythm , no murmurs Abd: distended, obese, localized area of mild right upper q uadrant tenderness , bowel sounds aud ible, no guarding, no rigidity Ext: no edema Skin: war m/well-perfused Ne uro: alert and emile ented x3, no focal findings Psych: a ppropriate affect Objective Data Active Medications Acetaminophen (Acetaminophen Supp 650 Mg Supp.Rect) 650 mg MS Q6H PRN PRN Reason: Pain, Mild (Pain Scale 1-3) Albuterol Sulfate (Albuterol Sulfate 90 Mcg 8 Gm Inhaler) 2 puff INHALE RQ4H PRN PRN Reason: Shortness of Breath Artificial Tears (Artificial Tears 15 Ml Drops) 2 drop EYE-BOTH Q4H PRN PRN Reason: Dry Eyes Last Admin: 10/20/21 05:11 Dose: 2 drop Documented by: ROSITA Diltiazem HCl (Diltiazem Hcl 30 Mg Tablet) 30 mg PO QID [facility]; Protocol Last Admin: 10/20/21 08:35 Dose: 30 mg Documented by: JAYDON Enoxaparin Sodium (Enoxaparin Sodium 40 Mg/0.4 Ml Syringe) 40 mg SUBCUT Q24H [facility] Last Admin: 10/20/21 02:36 Dose: 40 mg Documented by: ROSITA Losartan Potassium (Losartan Potassium 50 Mg Tablet) 50 mg PO DAILY [facility]; Protocol Metoprolol Tartrate (Metoprolol Tartrate 50 Mg Tablet) 50 mg PO BID [facility]; Protocol Omeprazole (Omeprazole 20 Mg/10 Ml Susp.Recon) 20 mg PO BID@0630,1630 [facility] Ondansetron HCl (Ondansetron Hcl 4 Mg/2 Ml Vial) 4 mg IVPUSH Q8H PRN PRN Reason: Nausea and Vomiting Last Admin: 10/14/21 15:43 Dose: 4 mg Documented by: ANMOL Pharmacy Consult (Consult Rx Perform Med Rec) 1 each MISCELLANE ONCE PRN PRN Reason: Consult order Polyethylene Glycol (Polyethylene Glycol 3350 17 Gm Powd.Pack) 17 gm PO DAILY S Last Admin: 10/20/21 08:35 Dose: 17 gm Documented by: JAYDON Senna (Sennosides 8.6 Mg Tablet) 17.2 mg PO BEDTIME [facility] Sodium Chloride (0.9 % Sodium Chloride Flush 3 Ml Syringe) 3 ml IVFLUSH QSHIFT [facility] Last Admin: 10/20/21 08:35 Dose: Not Given Documented by: JAYDON Non-Admin Reason: IV Running Trazodone HCl (Trazodone Hcl 25 Mg Halftab) 25 mg PO BEDTIME PRN PRN Reason: Insomnia Labs CBC & Chem 7: 10/19/21 05:13 10/19/21 05:13 Assessment and Plan (1) Partial small bowel obstruction: Status: Acute (2) Hypernatremia: Status: Acute (3) Acute kidney injury superimposed on CKD: Status: Acute Plan 76yo M with CKD3, HTN, CHF, prostate CA admitted for pSBO related to prior abd surgeries for ulcer # pSBO Tolerating clear liquid diet, abdominal pain is gradually improving, will gradually advance diet to full liquid and follow clinical course, will DC IV fluid repeat KUB showed progression of barium into the colon with some persistent d istention of multiple small-bowel loops , good bowel sounds moving bowels, no nausea, no vomiting, monitor electrolytes Re-consult surgery if unable to tolerate diet, follow closely for right upper quadrant pain, recent CT abdomen showed unremarkable gallbladder with no evidence of radiopaque stones, no focal hepatic lesions or biliary ductal dilatation. # tight crico-esophageal junction likely giving sensation of lump in throat - status post upper endoscopy 10/18/21 that showed erosive esophagitis, hiatal hernia, gastric erosions and gastritis , will DC IV Protonix and place on by mouth Prilosec, will resume home medication # hypertension with elevated blood pressure reading since blood pressure medicines were on hold will continue Cardizem and resume metoprolol and valsartan # hyperNa - corrected sodium improved to 141 # CKD3 - SCr at baseline # CHF, unknown EF - no evidence of acute decompensation # morbid obesity - weight loss recommended # VTE ppx - LMWH # dispo - eventual return to [facility]3] for LTC In my professional opinion, patient requires continued hospitalization due to partial small-bowel obstruction currently on clear liquid diet will gradually advance and monitor clinical status and electrolytes. Quality Stroke Does the patient have a stroke diagnosis?: No VTE Prior VTE?: No VTE Risk Level:: Medical - moderate - high VTE Device Contraindication: Treatment Not Indicated VTE Drug Contraindication: N/A - Med Ordered
[2021-10-20] MEDS: Losartan Potassium 50 MG TABLET PO (11:56)
[2021-10-20] MEDS: 0.9 % Sodium Chloride Flush 3 ML SYRINGE IVFLUSH ×2 (16:24→20:10)
[2021-10-20] MEDS: Acetaminophen Supp 650 MG SUPP.RECT PR (18:54)
[2021-10-20] MEDS: Sennosides 8.6 MG TABLET 17.2 MG PO (20:10)
[2021-10-20] MEDS: Metoprolol Tartrate 50 MG TABLET PO (20:10)
[2021-10-21] VITALS (9 sets, daily range): BP systolic 141–179; BP diastolic 65–85; PULSE 61–85; RESP 16–18; TEMP 36.1–37.1; O2SAT 93–98
[2021-10-21] MEDS: Enoxaparin Sodium 40 MG/0.4 ML SYRINGE SUBCUT (02:39)
[2021-10-21] MEDS: Acetaminophen Supp 650 MG SUPP.RECT PR ×2 (02:49→20:23)
[2021-10-21 07:13] LABS: Anion Gap 15 (12-20); Blood Urea Nitrogen 9 mg/dL (9-16); Calcium 8.7 mg/dL (8.4-10.2); Carbon Dioxide 27 mmol/L (22-29); Chloride 102 mmol/L (96-108); Creatinine Clr Calc Pharmacy 62.2; Estimated Glomerular Filt Rate > 60; Glucose Random 140 mg/dL (60-115); Potassium 3.5 mmol/L (3.3-5.1); Sodium 140 mmol/L (135-145)
[2021-10-21] MEDS: 0.9 % Sodium Chloride Flush 3 ML SYRINGE IVFLUSH ×2 (07:57→20:22)
[2021-10-21] MEDS: dilTIAZem HCL CD 120 MG CAP.ER.DEG PO (07:57)
[2021-10-21] MEDS: Metoprolol Tartrate 50 MG TABLET PO ×2 (07:57→20:22)
[2021-10-21] MEDS: polyethylene glycoL 3350 17 GM POWD.PACK PO (07:57)
[2021-10-21] MEDS: Losartan Potassium 50 MG TABLET PO (07:57)
--- NOTE | 2021-10-21 09:31 | HO.PM.IMPN ---
Subjective Subjective Date of Service: 10/21/21 Interval History: Complaining of mid abdominal pain, not related to food, tolerating full liquid diet no nausea, no vomiting having bowel movements, patient is a poor historian complaining of history of hemorrhoids, fissure, denies rectal pain, has been mostly in bed at baseline ambulate short distances with a walker. Review of Systems Review of Systems: Yes all other systems are reviewed and are negative Physical Exam Vital Signs: Vital Signs: Last Vital Signs Temp 97.4 F 10/21/21 07:39 Pulse 61 10/21/21 07:39 Resp 18 10/21/21 07:39 BP 165/79 H 10/21/21 07:39 Pulse Ox 93 10/21/21 07:39 Oxygen Flow Rate 2 10/20/21 13:51 BMI result Body Mass Index 41.8 Const: Other: Gen:? Awake alert, no distress Neck: supple, no JVD Jennifer gs: clear to auscu ltation bilaterall y Heart: regular r ate and rhythm, no murmurs Abd: dist ended, obese, loca lized area of mid abdominal tenderne ss to palpation,fela wel sounds audible ,no guarding, no r igidity Ext: no ed gabriele Skin: warm/wel l-perfused Neuro: alert and oriented x3, no focal find ings Psych: approp riate affect Objective Data Active Medications Acetaminophen (Acetaminophen Supp 650 Mg Supp.Rect) 650 mg SC Q6H PRN PRN Reason: Pain, Mild (Pain Scale 1-3) Last Admin: 10/21/21 02:49 Dose: 650 mg Documented by: ROSITA Albuterol Sulfate (Albuterol Sulfate 90 Mcg 8 Gm Inhaler) 2 puff INHALE Q4H PRN PRN Reason: Shortness of Breath Allopurinol (Allopurinol 300 Mg Tablet) 300 mg PO DAILY [facility] Artificial Tears (Artificial Tears 15 Ml Drops) 2 drop EYE-BOTH Q4H PRN PRN Reason: Dry Eyes Last Admin: 10/20/21 05:11 Dose: 2 drop Documented by: ROSITA Bisacodyl (Bisacodyl 5 Mg Tablet.Dr) 5 mg PO DAILY [facility] Diltiazem HCl (Diltiazem Hcl Cd 120 Mg Cap.Er.Deg) 120 mg PO DAILY [facility]; Protocol Last Admin: 10/21/21 07:57 Dose: 120 mg Documented by: JAYDON Enoxaparin Sodium (Enoxaparin Sodium 40 Mg/0.4 Ml Syringe) 40 mg SUBCUT Q24H [facility] Last Admin: 10/21/21 02:39 Dose: 40 mg Documented by: ROSITA Hydrocortisone (Hydrocortisone 2.5 % Rectal Cr 30 Gm Tube) 1 appl SC DAILY [facility] Losartan Potassium (Losartan Potassium 50 Mg Tablet) 50 mg PO DAILY [facility]; Protocol Last Admin: 10/21/21 07:57 Dose: 50 mg Documented by: JAYDON Metoprolol Tartrate (Metoprolol Tartrate 50 Mg Tablet) 50 mg PO BID [facility]; Protocol Last Admin: 10/21/21 07:57 Dose: 50 mg Documented by: JAYDON Omeprazole (Omeprazole 20 Mg/10 Ml Susp.Recon) 20 mg PO BID@0630,1630 [facility] Last Admin: 10/21/21 05:18 Dose: 20 mg Documented by: ROSITA Ondansetron HCl (Ondansetron Hcl 4 Mg/2 Ml Vial) 4 mg IVPUSH Q8H PRN PRN Reason: Nausea and Vomiting Last Admin: 10/14/21 15:43 Dose: 4 mg Documented by: ANMOL Pharmacy Consult (Consult Rx Perform Med Rec) 1 each MISCELLANE ONCE PRN PRN Reason: Consult order Polyethylene Glycol (Polyethylene Glycol 3350 17 Gm Powd.Pack) 17 gm PO DAILY [facility] Last Admin: 10/21/21 07:57 Dose: 17 gm Documented by: JAYDON Senna (Sennosides 8.6 Mg Tablet) 17.2 mg PO BEDTIME [facility] Last Admin: 10/20/21 20:10 Dose: 17.2 mg Documented by: ROSITA Sodium Chloride (0.9 % Sodium Chloride Flush 3 Ml Syringe) 3 ml IVFLUSH QSHIFT [facility] Last Admin: 10/21/21 07:57 Dose: 3 ml Documented by: JAYDON Trazodone HCl (Trazodone Hcl 25 Mg Halftab) 25 mg PO BEDTIME PRN PRN Reason: Insomnia Labs CBC & Chem 7: 10/19/21 05:13 10/21/21 06:08 Labs: Laboratory Results - last 24 hr 10/21/21 06:08 Anion Gap 15 Estim Creat Clear Calc 62.2 Estimated GFR > 60 Random Glucose 140 H D Calcium 8.7 Assessment and Plan (1) Partial small bowel obstruction: Status: Acute (2) Hypernatremia: Status: Acute (3) Acute kidney injury superimposed on CKD: Status: Acute Plan 76yo M with CKD3, HTN, CHF, prostate CA admitted for pSBO related to prior abd surgeries for ulcer # pSBO Complaining of localized constant mid abdominal discomfort, not related to eating Tolerating full liquid diet, will continue current diet for next 24 hours and reassess pain repeat KUB on 10/18 showed progression of barium into the colon with some persistent distention of multiple small-bowel loops , good bowel sounds moving bowels, no nausea, no vomiting, monitor electrolytes recent CT abdomen showed unremarkable gallbladder with no evidence of radiopaque stones, no focal hepatic lesions or biliary ductal dilatation. Will discuss further treatment options for persistent pain with General surgery, will add K-pad, Tylenol avoid narcotics History of chronic constipation will resume home medications and add hydrocortisone cream for chronic hemorrhoids. # tight crico-esophageal junction likely giving sensation of lump in throat - status post upper endoscopy 10/18/21 that showed erosive esophagitis, hiatal hernia, gastric erosions and gastritis , continue by mouth Prilosec # hypertension with elevated blood pressure readings On Cardizem, metoprolol and valsartan will resume Cardura 4 mg daily # hyperNa - corrected sodium improved to 141 # CKD3 - SCr at baseline # CHF, unknown EF - no evidence of acute decompensation # morbid obesity - weight loss recommended # VTE ppx - LMWH # dispo - eventual return to [facility] for LTC In my professional opinion, patient requires continued hospitalization due to partial small-bowel obstruction currently unable to tolerate regular diet due to persistent abdominal pain. Quality Stroke Does the patient have a stroke diagnosis?: No VTE Prior VTE?: No VTE Risk Level:: Medical - moderate - high VTE Device Contraindication: Treatment Not Indicated VTE Drug Contraindication: N/A - Med Ordered
[2021-10-21] MEDS: bisacodyL 5 MG TABLET.DR PO (09:54)
[2021-10-21] MEDS: Doxazosin Mesylate 2 MG TABLET 4 MG PO (09:54)
[2021-10-21] MEDS: allopurinoL 300 MG TABLET PO (09:54)
[2021-10-21] MEDS: Hydrocortisone 2.5 % Rectal Cr 30 GM TUBE 1 APPL PR (10:46)
--- NOTE | 2021-10-21 11:51 | PM.PNGS ---
Subjective Subjective Date of Service: 10/21/21 Interval history: describes pain on abdomen - points to area of old laparotomy incision otherwise no vomitting tolerating PO intake has BMs Physical Exam Vital Signs: Vital Signs: Last Vital Signs Temp 97.4 F 10/21/21 07:39 Pulse 61 10/21/21 07:39 Resp 18 10/21/21 07:39 BP 165/79 H 10/21/21 07:39 Pulse Ox 93 10/21/21 07:39 Oxygen Flow Rate 2 10/20/21 13:51 BMI result Body Mass Index 41.8 Const: General: comfortable and no acute distress Resp: Other: coughing a lot when seen Effort & Inspection: normal respiratory effort Cardio: Rate: regular rate GI: Other: points to an area of tenderness along old laparotomy, has reducible hernia Inspection: No distended Palpation (GI): Soft to palpation, not firm and no guarding Objective Data Active Medications Acetaminophen (Acetaminophen Supp 650 Mg Supp.Rect) 650 mg PA Q6H PRN PRN Reason: Pain, Mild (Pain Scale 1-3) Last Admin: 10/21/21 02:49 Dose: 650 mg Documented by: ROSITA Albuterol Sulfate (Albuterol Sulfate 90 Mcg 8 Gm Inhaler) 2 puff INHALE Q4H PRN PRN Reason: Shortness of Breath Allopurinol (Allopurinol 300 Mg Tablet) 300 mg PO DAILY [facility] Last Admin: 10/21/21 09:54 Dose: 300 mg Documented by: JAYDON Artificial Tears (Artificial Tears 15 Ml Drops) 2 drop EYE-BOTH Q4H PRN PRN Reason: Dry Eyes Last Admin: 10/20/21 05:11 Dose: 2 drop Documented by: ROSITA Bisacodyl (Bisacodyl 5 Mg Tablet.Dr) 5 mg PO DAILY [facility] Last Admin: 10/21/21 09:54 Dose: 5 mg Documented by: JAYDON Diltiazem HCl (Diltiazem Hcl Cd 120 Mg Cap.Er.Deg) 120 mg PO DAILY [facility]; Protocol Last Admin: 10/21/21 07:57 Dose: 120 mg Documented by: JAYDON Doxazosin Mesylate (Doxazosin Mesylate 2 Mg Tablet) 4 mg PO DAILY [facility]; Protocol Last Admin: 10/21/21 09:54 Dose: 4 mg Documented by: JAYDON Enoxaparin Sodium (Enoxaparin Sodium 40 Mg/0.4 Ml Syringe) 40 mg SUBCUT Q24H [facility] Last Admin: 10/21/21 02:39 Dose: 40 mg Documented by: ROSITA Hydrocortisone (Hydrocortisone 2.5 % Rectal Cr 30 Gm Tube) 1 appl PA DAILY [facility] Last Admin: 10/21/21 10:46 Dose: 1 appl Documented by: JAYDON Losartan Potassium (Losartan Potassium 50 Mg Tablet) 50 mg PO DAILY [facility]; Protocol Last Admin: 10/21/21 07:57 Dose: 50 mg Documented by: JAYDON Metoprolol Tartrate (Metoprolol Tartrate 50 Mg Tablet) 50 mg PO BID [facility]; Protocol Last Admin: 10/21/21 07:57 Dose: 50 mg Documented by: JAYDON Omeprazole (Omeprazole 20 Mg/10 Ml Susp.Recon) 20 mg PO BID@0630,1630 [facility] Last Admin: 10/21/21 05:18 Dose: 20 mg Documented by: ROSITA Ondansetron HCl (Ondansetron Hcl 4 Mg/2 Ml Vial) 4 mg IVPUSH Q8H PRN PRN Reason: Nausea and Vomiting Last Admin: 10/14/21 15:43 Dose: 4 mg Documented by: ANMOL Pharmacy Consult (Consult Rx Perform Med Rec) 1 each MISCELLANE ONCE PRN PRN Reason: Consult order Polyethylene Glycol (Polyethylene Glycol 3350 17 Gm Powd.Pack) 17 gm PO DAILY [facility] Last Admin: 10/21/21 07:57 Dose: 17 gm Documented by: JYADON Senna (Sennosides 8.6 Mg Tablet) 17.2 mg PO BEDTIME [facility] Last Admin: 10/20/21 20:10 Dose: 17.2 mg Documented by: ROSITA Sodium Chloride (0.9 % Sodium Chloride Flush 3 Ml Syringe) 3 ml IVFLUSH QSHIFT [facility] Last Admin: 10/21/21 07:57 Dose: 3 ml Documented by: JAYDON Trazodone HCl (Trazodone Hcl 25 Mg Halftab) 25 mg PO BEDTIME PRN PRN Reason: Insomnia Labs CBC & Chem 7: 10/19/21 05:13 10/21/21 06:08 Labs: Laboratory Results - last 24 hr 10/21/21 06:08 Anion Gap 15 Estim Creat Clear Calc 62.2 Estimated GFR > 60 Random Glucose 140 H D Calcium 8.7 Procedures Date of Service Date of Service: 10/21/21 Progress Note: A&P Assessment and plan (1) Abdominal pain: Status: Acute Assessment and Plan: exam remains benign not obstructed clinically imaging studies reviewed - no evidence of obstruction seems to point to area of old incision and hernia as location of pain no surgical issues otherwise diet as tolerated Fall Risk Details Current Medications: Current Medications Acetaminophen (Acetaminophen Supp 650 Mg Supp.Rect) 650 mg PA Q6H PRN PRN Reason: Pain, Mild (Pain Scale 1-3) Last Admin: 10/21/21 02:49 Dose: 650 mg Documented by: Albuterol Sulfate (Albuterol Sulfate 90 Mcg 8 Gm Inhaler) 2 puff INHALE Q4H PRN PRN Reason: Shortness of Breath Allopurinol (Allopurinol 300 Mg Tablet) 300 mg PO DAILY [facility] Last Admin: 10/21/21 09:54 Dose: 300 mg Documented by: Artificial Tears (Artificial Tears 15 Ml Drops) 2 drop EYE-BOTH Q4H PRN PRN Reason: Dry Eyes Last Admin: 10/20/21 05:11 Dose: 2 drop Documented by: Bisacodyl (Bisacodyl 5 Mg Tablet.Dr) 5 mg PO DAILY [facility] Last Admin: 10/21/21 09:54 Dose: 5 mg Documented by: Diltiazem HCl (Diltiazem Hcl Cd 120 Mg Cap.Er.Deg) 120 mg PO DAILY [facility]; Protocol Last Admin: 10/21/21 07:57 Dose: 120 mg Documented by: Doxazosin Mesylate (Doxazosin Mesylate 2 Mg Tablet) 4 mg PO DAILY [facility]; Protocol Last Admin: 10/21/21 09:54 Dose: 4 mg Documented by: Enoxaparin Sodium (Enoxaparin Sodium 40 Mg/0.4 Ml Syringe) 40 mg SUBCUT Q24H [facility] Last Admin: 10/21/21 02:39 Dose: 40 mg Documented by: Hydrocortisone (Hydrocortisone 2.5 % Rectal Cr 30 Gm Tube) 1 appl PA DAILY [facility] Last Admin: 10/21/21 10:46 Dose: 1 appl Documented by: Losartan Potassium (Losartan Potassium 50 Mg Tablet) 50 mg PO DAILY [facility]; Protocol Last Admin: 10/21/21 07:57 Dose: 50 mg Documented by: Metoprolol Tartrate (Metoprolol Tartrate 50 Mg Tablet) 50 mg PO BID [facility]; Protocol Last Admin: 10/21/21 07:57 Dose: 50 mg Documented by: Omeprazole (Omeprazole 20 Mg/10 Ml Susp.Recon) 20 mg PO BID@0630,1630 [facility] Last Admin: 10/21/21 05:18 Dose: 20 mg Documented by: Ondansetron HCl (Ondansetron Hcl 4 Mg/2 Ml Vial) 4 mg IVPUSH Q8H PRN PRN Reason: Nausea and Vomiting Last Admin: 10/14/21 15:43 Dose: 4 mg Documented by: Pharmacy Consult (Consult Rx Perform Med Rec) 1 each MISCELLANE ONCE PRN PRN Reason: Consult order Polyethylene Glycol (Polyethylene Glycol 3350 17 Gm Powd.Pack) 17 gm PO DAILY [facility] Last Admin: 10/21/21 07:57 Dose: 17 gm Documented by: Senna (Sennosides 8.6 Mg Tablet) 17.2 mg PO BEDTIME [facility] Last Admin: 10/20/21 20:10 Dose: 17.2 mg Documented by: Sodium Chloride (0.9 % Sodium Chloride Flush 3 Ml Syringe) 3 ml IVFLUSH QSHIFT [facility] Last Admin: 10/21/21 07:57 Dose: 3 ml Documented by: Trazodone HCl (Trazodone Hcl 25 Mg Halftab) 25 mg PO BEDTIME PRN PRN Reason: Insomnia Time Spent With Patient Time: Total time spent is greater than 50% in coordination of care (as documented) at patient's floor/unit and/or counseling patient: Time with patient: 15 - 24 minutes Quality Stroke Does the patient have a stroke diagnosis?: No VTE Prior VTE?: No VTE Risk Level:: Medical - moderate - high VTE Device Contraindication: Treatment Not Indicated VTE Drug Contraindication: N/A - Med Ordered
--- NOTE | 2021-10-21 14:08 | MHC.CM.PN ---
PER REVIEW OF RECORDS, PATIENT IS STILL UNABLE TO TOLERATE A REGULAR DIET DUE TO ABDOMINAL PAIN. VANTAGE RANDALL ROJO UPDATED IN [employer]. CASE MANAGEMENT CONTINUING TO FOLLOW AND UPDATE NEEDED.
[2021-10-21] MEDS: Sennosides 8.6 MG TABLET 17.2 MG PO (20:22)
[2021-10-21] MEDS: traZODone HCL 25 MG HALFTAB PO (20:22)
[2021-10-22] VITALS (9 sets, daily range): BP systolic 150–206; BP diastolic 68–101; PULSE 73–89; RESP 14–20; TEMP 36.2–36.8; O2SAT 95–98
[2021-10-22] MEDS: Enoxaparin Sodium 40 MG/0.4 ML SYRINGE SUBCUT (02:16)
[2021-10-22 06:06] LABS: Hematocrit 34.7 % (42.0-52.0); Hemoglobin 11.6 g/dl (14.0-18.0); Mean Corpuscular HGB Conc 33.4 g/dl (31.0-36.0); Mean Corpuscular Hemoglobin 30.9 pg (27.0-33.0); Mean Corpuscular Volume 92.3 fL (80.0-98.0); Platelet Count 256 X10*3/uL (160-400); Red Blood Count 3.76 X10*6/uL (4.60-5.80); Red Cell Distribution Width 13.7 % (11.0-16.0); White Blood Count 9.5 X10*3/uL (4.8-10.8)
[2021-10-22 06:20] LABS: Anion Gap 14 (12-20); Blood Urea Nitrogen 6 mg/dL (9-16); Calcium 8.9 mg/dL (8.4-10.2); Carbon Dioxide 25 mmol/L (22-29); Chloride 105 mmol/L (96-108); Creatinine Clr Calc Pharmacy 63.2; Estimated Glomerular Filt Rate > 60; Glucose Random 116 mg/dL (60-115); Potassium 3.7 mmol/L (3.3-5.1); Sodium 140 mmol/L (135-145)
[2021-10-22] MEDS: 0.9 % Sodium Chloride Flush 3 ML SYRINGE IVFLUSH ×3 (08:09→19:35)
[2021-10-22] MEDS: bisacodyL 5 MG TABLET.DR PO (08:10)
[2021-10-22] MEDS: allopurinoL 300 MG TABLET PO (08:10)
[2021-10-22] MEDS: Metoprolol Tartrate 50 MG TABLET PO ×2 (08:10→19:31)
[2021-10-22] MEDS: dilTIAZem HCL CD 120 MG CAP.ER.DEG PO (08:10)
[2021-10-22] MEDS: Doxazosin Mesylate 2 MG TABLET 4 MG PO (08:10)
[2021-10-22] MEDS: Losartan Potassium 50 MG TABLET PO (08:10)
--- NOTE | 2021-10-22 08:41 | P.CDIC_ITS ---
CDI Concurrent Query Documentation Clarification: PHYSICIAN'S DOCUMENTATION REQUEST Date of Query: 10/22/21 0842 Patient Name: Oh Lares Admit Date: 10/12/21 Dear Doctor, A review of the medical record indicates additional documentation may be needed. Please review below and update the documentation accordingly. Clinical Indicators: Risk Factors/Clinical Indicators/Treatments PN: 10/21 Assessment/plan: Tight crico-esophageal junction likely given sensation of lump in throat, s/p endocscopy 10/18 showing erosive esophagitis/HH/ gastric erosions and gastritis. Prilosec Clarify which of the following accurately represents the acuity of the [Gastritis]. Possible options might include: * Acute * Acute on chronic * Exacerbated/Decompensated * Compensated * Chronic stable condition * Other ? please specify * Unable to determine Use of terms such as suspected, likely, concern for, or probable (associated with a specific diagnosis that is being evaluated, monitored, or treated as if it exists) are acceptable and can be coded in the inpatient setting, when documented at the time of discharge. Thank you, Emmanuelle Rose [facility], CDIS Extension: [phone] Please use your independent medical judgment in providing your response. THIS QUERY IS PART OF THE PERMANENT MEDICAL RECORD Provider Response: Other Other Diagnosis: Acute gastritis
[2021-10-22] MEDS: polyethylene glycoL 3350 17 GM POWD.PACK PO (08:44)
[2021-10-22] MEDS: Hydrocortisone 2.5 % Rectal Cr 30 GM TUBE 1 APPL PR (08:49)
--- NOTE | 2021-10-22 12:57 | MHC.SL.SWA ---
Speech Pathologist Impression: Oropharyngeal dysphagia Risk of Aspiration Due to: Medically Fragile Dysphasia Diet Status: When seen by this STOREROOM SUPERVISOR, patient reports that both food and liquid feel stuck in his throat, and that it feels like something is sticking out in the way in his throat. Patient denies pain when swallowing. Although patient is edentulous, he reports he is able to eat solid foods without trouble. Additionally patient complained of his stomach sticking out after eating a sandwich, stomach discomfort, and coughing- MD and RN notified. Patient displayed mildly prolonged oral phase secondary to edentulous state- For ease of mastication, recommend chopped/advanced (NDD3) solids, moisten foods with sauce/gravy as needed, avoid tough, difficult to chew solids. Recommend THIN liquids and pills WHOLE or CRUSHED in PUREE. Patient displayed no overt s/s of aspiration at bedside- Based on those observations, would not further modify diet textures. Further workup for complaint of globus sensation would be MBSS, which can be done on outpatient basis, or during inpatient stay if indicated. Continue aspiration precautions. Liquid Consistency and Strategies for Safe Swallow: Liquid Intake Recommendation: Thin Liquid Intake Strategies: Small Sips Solid Food Consistency: Dietary Recommendations: Chopped/Advanced (NDD3) Additional Modifications to Solid Foods: with sauce/gravy Oral Medication Intake: Whole with Puree Please contact the pharmacy regarding appropriate crushable or liquid drug formulations that are available whenever modified delivery is recommended. Compensatory Strategies and Precautions to be Taken for Safe Swallow: Sitting Upright (90 deg) Double Swallow Small Bites and Sips Alternate Liquids/Solids Rate of Ingestion Change Avoid Specific Foods Supervision While Eating and Drinking for Safe Swallow: Total Supervision (1:1) Foods to Avoid: Pt is edentulous, avoid hard or difficult to chew solids Swallowing Recommended Treatments: Compens. Strategy Educat. Recommendation for Speech: Inpatient Speech Therapy Comment: Pt presents w/ consistent c/o sensation of lump in throat on swallow, indicated area below larynx as area where sensation is. STOREROOM SUPERVISOR to re-assess for toleration of diet, re-assess swallow for advancement of diet if warranted. Recommend follow up w/ GI re throat discomfort associated w/swallow. Manager Pharmacy Clinican/Clinical Fellow: No Supervisory Statement: I have reviewed and agree with the student/clinical fellow's documentation: N/A Speech Language Pathologist: Zuly Richmond M.A., [facility]-STOREROOM SUPERVISOR
[2021-10-22 13:26] LABS: COVID-19 Test Negative (Negative)
--- NOTE | 2021-10-22 13:26 | PM.DS ---
DS: Providers Provider Date of Service: 10/22/21 Date of admission: 10/12/21 02:08 Primary care physician: Vianey Ambrosio MD Consults: 10/12/21 02:06 Consult to General Surgery Routine Consulting Provider: Alvaro Jorgensen Reason for consultation: partial sbo Has provider been notified: No 10/18/21 07:37 Consult to Gastroenterology Routine Consulting Provider: Pb Stokes Reason for consultation: cricopharyngeal narrowing? dysphagia SBO DS: Diagnosis Discharge Diagnosis (1) Abdominal pain: Status: Acute DS: Summary Hospital Course Hospital Course: Chief Complaint: n/v/abd pain This 76-year-old male with past medical history of prostate cancer, hypertension, CKD, asthma, arthritis, cerebral palsy, and chronic constipation who presents to the hospital with complaints of abdominal pain nausea vomiting.? Patient reports his symptoms started yesterday, the abdominal pain is diffuse, 10/10,? has constipation last BM yesterday, has? Nausea and vomiting, low oral intake, no fever or chills, denies any chest pain, no shortness of breath, reports urinary retention with no urgency or dysuria as well as no frequency.? Patient has no numbness tingling, no headache or change in vision, and no lower extremity edema.? He reports that he had a history of blockage in the colon, had leaking in the colon but unaware if he had colectomy.? He has an abdominal hernia On arrival to the ED patient hemodynamically stable Labs are significant for WBC count 17.7, hemoglobin 13.3, hematocrit 38.9, creatinine of 1.99, BUN of 44, no previous for comparison.? Alk-phos of 211, UA negative.? Abdomen pelvic CT shows test and is stomach and proximal small bowel with gradual transition to decompressed small bowel.? Gas and stool throughout the colon, this appearance not convincing for obstruction.? Early or partial obstruction is possible Hospital course 76yo M with CKD3, HTN, CHF, prostate CA admitted for dysphagia and pSBO probably related to prior abdominal surgeries for ulcer, patient was managed conservatively with NG tube, IV fluid and serial abdominal x-rays, repeat KUB showed progression of barium into the colon, therefore diet was gradually advanced currently patient is tolerating regular diet, was followed closely by General surgery no surgical intervention was required, patient continued complained of food and liquid stuck in his throat, but denies pain with swallowing currently tolerating regular diet, was followed closely by speech therapy he displayed mildly prolonged oral phase secondary to edentulous state therefore speech recommend chopped/advanced solids, moisten foods with sauce and gravy, speech recommend to avoid difficult to chew solids, continue thin liquids and pills whole or crushed in pureed patient displayed no overt sinus symptoms of aspiration outpatient MBS study is recommended in regard to chronic constipation patient is recommended to continue all home medications. Barium swallow showed tight crico-esophageal junction likely giving sensation of lump in throat, status post upper endoscopy 10/18/21 that showed erosive esophagitis, hiatal hernia, gastric erosions and acute gastritis , patient has been placed on Prilosec 20 mg twice daily and recommend follow-up with Dr. Stokes from Gastroenterology in 3 months for repeat endoscopy. Patient also noted to have acute kidney injury with background of chronic kidney disease stage 3 and hypernatremia on admission, patient treated with fluids, Lasix discontinued renal function and sodium has normalized Lasix discontinued. In regard to chronic medical issues including hypertension patient noted to have few elevated blood pressure readings but manual blood pressures have been within normal range continue home medication Cardizem, metoprolol valsartan and Cardura 4 mg daily For morbid obesity weight loss recommended. Time Spent with Patient Time attestation: Total time spent providing and/or coordinating discharge services: Discharge coordination time: Greater than 30 minutes Quality: Stroke Does the patient have a stroke diagnosis?: No Physical Exam Vital Signs: Vital Signs: Last Vital Signs Temp 97.2 F 10/22/21 12:00 Pulse 80 10/22/21 12:00 Resp 20 10/22/21 12:00 BP 176/75 H 10/22/21 12:00 Pulse Ox 98 10/22/21 12:00 Oxygen Flow Rate 2 10/21/21 14:00 BMI result Body Mass Index 41.8 Const: Other: Gen:? Awake alert, no distress Neck: supple, no JVD Lungs: clear to auscultation bilaterally Heart: regular rate and rhythm, no murmurs Abd: distended, obese, nontender, localized area of right upper quadrant tenderness at site of old laparotomy incision, bowel sounds audible, no guarding, no rigidity Ext: no edema Skin: warm/well-perfused Neuro: alert and oriented x3, no focal findings Psych: appropriate affect DS: Data Data Completed and Pending Completed studies during hospitalization [Text1]: Pending at discharge 10/18/21 14:55 Surgical [PTH] Routine Labs on day of discharge: Laboratory Results - last 24 hr 10/22/21 10/22/21 10/22/21 05:36 05:36 12:30 WBC 9.5 RBC 3.76 L Hgb 11.6 L Hct 34.7 L MCV 92.3 MCH 30.9 MCHC 33.4 RDW 13.7 Plt Count 256 MPV 11.0 Absolute Nucleated RBC 0.000 Nucleated RBC % (auto) 0.0 Sodium 140 Potassium 3.7 Chloride 105 Carbon Dioxide 25 Anion Gap 14 BUN 6 L Creatinine 1.16 Estim Creat Clear Calc 63.2 Estimated GFR > 60 Random Glucose 116 H Calcium 8.9 COVID-19 ([facility]) Negative COVID-19 Clin Com See Note Discharge Plan Discharge Patient Disposition: er [facility] Discharge Diagnosis: Partial small-bowel obstruction Erosive esophagitis Hypernatremia Dysphagia Referrals: Vianey Ambrosio MD [Primary Care Provider] - 1 Week Discharge Medications: New omeprazole 20 mg capsule,delayed release(DR/EC) 20 mg PO BID Qty: 60 0RF Continued multivitamin Tablet 1 tab PO DAILY 0RF losartan 50 mg tablet 1 tab PO DAILY 0RF sennosides [Senna Laxative] 8.6 mg tablet 17.2 mg PO DAILY 0RF tizanidine 2 mg tablet 1 tab PO BEDTIME 0RF trazodone 50 mg tablet 25 mg PO BID PRN (Reason: Anxiety) 0RF lidocaine [Hemorrhoidal Relief] 5 % Cream 1 appl TOPICAL QID PRN (Reason: Hemorrhoids) 0RF pravastatin 10 mg tablet 1 tab PO BEDTIME 0RF metoprolol tartrate 50 mg tablet 1 tab PO BID 0RF docusate sodium 100 mg capsule 100 mg PO TID PRN (Reason: Constipation) 0RF doxazosin 4 mg tablet 1 tab PO DAILY 0RF diltiazem HCl 120 mg capsule,extended release 24hr 1 cap PO DAILY 0RF allopurinol 300 mg tablet 1 tab PO DAILY 0RF gabapentin 100 mg capsule 1 cap PO DAILY 0RF albuterol sulfate 90 mcg/actuation HFA aerosol inhaler 2 puff inhalation Q4H PRN (Reason: Wheezing) 0RF heparin (porcine) 5,000 unit/mL solution 5,000 unit subcut Q12H 0RF oxycodone 5 mg tablet 5 mg PO Q12H PRN (Reason: pain) 0RF bisacodyl 5 mg Tablet 5 mg PO Q48H 0RF cholecalciferol (vitamin D3) 25 mcg (1,000 unit) tablet 25 mcg PO BID 0RF Movantik 25 mg tablet 1 tab PO DAILY 0RF Changed polyethylene glycol 3350 17 gram/dose powder 17 g PO DAILY PRN (Reason: Constipation) Qty: 0 0RF Discontinued omeprazole 40 mg capsule,delayed release(DR/EC) 1 cap PO DAILY 0RF furosemide 20 mg tablet 1 tab PO DAILY 0RF fentanyl 25 mcg/hr patch 72 hour 1 patch topical Q3D 0RF Discharge Orders: Discharge Order (Routine); Ordered 10/22/21 Ordered By: Sara Rm Diet: advance to usual diet Activity on Discharge: As tolerated Stand Alone Forms: Patient Portal Discharge page Care Plan Goals: Erosive esophagitis follow-up with Dr. Mistry [facility] for repeat upper endoscopy in 3 months, outpatient modified barium swallow, continue chopped /advanced NDD3 solid moisten foods with sauce gravy as needed, continue thin liquids, pills whole or crushed in puree Partial small-bowel obstruction resolved, Duragesic patch not resumed since patient with no pain Health Concerns: Continue all home medications as before Plan of Treatment: Outpatient follow-up with primary care physician Assessment: Per discharge summary
--- NOTE | 2021-10-22 14:56 | MHC.CM.PN ---
Addendum entered by Kiara Loya 10/22/21 16:21: STILL NO INSURANCE AUTH , [facility] nurse and pt and t/c to hcp ed espino. 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
--- NOTE | 2021-10-22 16:24 | HO.PM.IMPN ---
Subjective Subjective Date of Service: 10/22/21 Interval History: Feeling better no abdominal pain this a.m. tolerating diet moving bowels no nausea no vomiting is still complaining of sensation of foods stuck in throat, no pain with swallowing. Review of Systems Review of Systems: Yes all other systems are reviewed and are negative Physical Exam Vital Signs: Vital Signs: Last Vital Signs Temp 97.2 F 10/22/21 12:00 Pulse 80 10/22/21 12:00 Resp 20 10/22/21 12:00 BP 176/75 H 10/22/21 12:00 Pulse Ox 95 10/22/21 14:00 Oxygen Flow Rate 2 10/21/21 14:00 BMI result Body Mass Index 41.8 Const: Other: Gen:? Awake alert, no distress Neck: supple, no JVD Lungs: clear to auscultation bilaterally Heart: regular rate and rhythm, no murmurs Abd: distended, obese, nontender, localized area of right upper quadrant tenderness at site of old laparotomy incision, bowel sounds audible, no guarding, no rigidity Ext: no edema Skin: warm/well-perfused Neuro: alert and oriented x3, no focal findings Psych: appropriate affect Objective Data Active Medications Acetaminophen (Acetaminophen Supp 650 Mg Supp.Rect) 650 mg SC Q6H PRN PRN Reason: Pain, Mild (Pain Scale 1-3) Last Admin: 10/21/21 20:23 Dose: 650 mg Documented by: INDER Albuterol Sulfate (Albuterol Sulfate 90 Mcg 8 Gm Inhaler) 2 puff INHALE Q4H PRN PRN Reason: Shortness of Breath Allopurinol (Allopurinol 300 Mg Tablet) 300 mg PO DAILY [facility] Last Admin: 10/22/21 08:10 Dose: 300 mg Documented by: EMETERIO Artificial Tears (Artificial Tears 15 Ml Drops) 2 drop EYE-BOTH Q4H PRN PRN Reason: Dry Eyes Last Admin: 10/20/21 05:11 Dose: 2 drop Documented by: ROSITA Bisacodyl (Bisacodyl 5 Mg Tablet.Dr) 5 mg PO DAILY [facility] Last Admin: 10/22/21 08:10 Dose: 5 mg Documented by: EMETERIO Diltiazem HCl (Diltiazem Hcl Cd 120 Mg Cap.Er.Deg) 120 mg PO DAILY [facility]; Protocol Last Admin: 10/22/21 08:10 Dose: 120 mg Documented by: EMETERIO Doxazosin Mesylate (Doxazosin Mesylate 2 Mg Tablet) 4 mg PO DAILY [facility]; Protocol Last Admin: 10/22/21 08:10 Dose: 4 mg Documented by: EMETERIO Enoxaparin Sodium (Enoxaparin Sodium 40 Mg/0.4 Ml Syringe) 40 mg SUBCUT Q24H [facility] Last Admin: 10/22/21 02:16 Dose: 40 mg Documented by: INDER Hydrocortisone (Hydrocortisone 2.5 % Rectal Cr 30 Gm Tube) 1 appl SC DAILY [facility] Last Admin: 10/22/21 08:49 Dose: 1 appl Documented by: EMETERIO Losartan Potassium (Losartan Potassium 50 Mg Tablet) 50 mg PO DAILY [facility]; Protocol Last Admin: 10/22/21 08:10 Dose: 50 mg Documented by: EMETERIO Metoprolol Tartrate (Metoprolol Tartrate 50 Mg Tablet) 50 mg PO BID [facility]; Protocol Last Admin: 10/22/21 08:10 Dose: 50 mg Documented by: EMETERIO Omeprazole (Omeprazole 20 Mg/10 Ml Susp.Recon) 20 mg PO BID@0630,1630 [facility] Last Admin: 10/22/21 06:05 Dose: 20 mg Documented by: INDER Ondansetron HCl (Ondansetron Hcl 4 Mg/2 Ml Vial) 4 mg IVPUSH Q8H PRN PRN Reason: Nausea and Vomiting Last Admin: 10/14/21 15:43 Dose: 4 mg Documented by: ANMOL Pharmacy Consult (Consult Rx Perform Med Rec) 1 each MISCELLANE ONCE PRN PRN Reason: Consult order Polyethylene Glycol (Polyethylene Glycol 3350 17 Gm Powd.Pack) 17 gm PO DAILY [facility] Last Admin: 10/22/21 08:44 Dose: 17 gm Documented by: EMETERIO Senna (Sennosides 8.6 Mg Tablet) 17.2 mg PO BEDTIME [facility] Last Admin: 10/21/21 20:22 Dose: 17.2 mg Documented by: INDER Sodium Chloride (0.9 % Sodium Chloride Flush 3 Ml Syringe) 3 ml IVFLUSH QSHIFT [facility] Last Admin: 10/22/21 08:09 Dose: 3 ml Documented by: EMETERIO Trazodone HCl (Trazodone Hcl 25 Mg Halftab) 25 mg PO BEDTIME PRN PRN Reason: Insomnia Last Admin: 10/21/21 20:22 Dose: 25 mg Documented by: INDER Labs CBC & Chem 7: 10/22/21 05:36 10/22/21 05:36 Labs: Laboratory Results - last 24 hr 10/22/21 10/22/21 10/22/21 05:36 05:36 12:30 MCV 92.3 MCH 30.9 MCHC 33.4 RDW 13.7 Plt Count 256 MPV 11.0 Absolute Nucleated RBC 0.000 Nucleated RBC % (auto) 0.0 Anion Gap 14 Estim Creat Clear Calc 63.2 Estimated GFR > 60 Random Glucose 116 H Calcium 8.9 COVID-19 ([facility]) Negative COVID-19 Clin Com See Note Assessment and Plan (1) Cricopharyngeal hypertrophy: Status: Acute (2) Oropharyngeal dysphagia: Status: Acute (3) Hypernatremia: Status: Acute (4) Acute kidney injury superimposed on CKD: Status: Acute (5) Partial small bowel obstruction: Status: Acute Plan 76yo M with CKD3, HTN, CHF, prostate CA admitted for pSBO related to prior abd surgeries for ulcer # pSBO ? Abdominal pain resolved this morning, has intermittent localized pain at site of prior laparotomy ? Tolerating full liquid diet, will advance to regular diet, evaluated by General surgery, and found to have normal benign, no further surgical recommendation ? repeat KUB on 10/18 showed progression of barium into the colon with some persistent distention of multiple small-bowel loops , good bowel sounds moving bowels, no nausea, no vomiting, stable electrolytes ? recent CT abdomen showed unremarkable gallbladder with no evidence of radiopaque stones, no focal hepatic lesions or biliary ductal dilatation. History of chronic constipation, continue home medication # tight crico-esophageal junction likely giving sensation of lump in throat/no pain with swallowing - status post upper endoscopy 10/18/21 that showed erosive esophagitis, hiatal hernia, gastric erosions and gastritis likely acute , continue by mouth Prilosec and outpatient follow-up Gastroenterology in 3 months for repeat endoscopy To assess healing of erosive esophagitis. Seen by speech therapy they recommend outpatient modified barium swallow and recommend to continue ground solids/NDD3 diet and thin liquids # hypertension with elevated blood pressure readings at a.m. repeat blood pressure manually is within normal range ?? On Cardizem, metoprolol, Cardura and valsartan # hyperNa - corrected sodium improved to 141 # acute on CKD3 - SCr returned to baseline, continue to hold Lasix # morbid obesity - weight loss recommended # VTE ppx - LMWH # dispo - waiting for insurance authorization to return to rehab, rn case mgr arranging for safe discharge Quality Stroke Does the patient have a stroke diagnosis?: No VTE Prior VTE?: No VTE Risk Level:: Medical - moderate - high VTE Device Contraindication: Treatment Not Indicated VTE Drug Contraindication: N/A - Med Ordered
[2021-10-22] MEDS: Acetaminophen Supp 650 MG SUPP.RECT PR (16:54)
[2021-10-22] MEDS: traZODone HCL 25 MG HALFTAB PO (19:30)
[2021-10-22] MEDS: Sennosides 8.6 MG TABLET 17.2 MG PO (19:31)
[2021-10-22] MEDS: Artificial Tears 15 ML DROPS 2 DROP EYE-BOTH (19:43)
[2021-10-23] MEDS: Enoxaparin Sodium 40 MG/0.4 ML SYRINGE SUBCUT (03:20)
[2021-10-23 03:51] VITALS: BP 169/78; PULSE 72; RESP 20; TEMP 36.6; O2SAT 95
[2021-10-23 07:27] VITALS: BP 165/85; PULSE 78; RESP 16; TEMP 36.7; O2SAT 94
[2021-10-23] MEDS: allopurinoL 300 MG TABLET PO (07:38)
[2021-10-23] MEDS: Losartan Potassium 50 MG TABLET PO (07:38)
[2021-10-23] MEDS: Metoprolol Tartrate 50 MG TABLET PO (07:40)
[2021-10-23] MEDS: dilTIAZem HCL CD 120 MG CAP.ER.DEG PO (07:41)
[2021-10-23] MEDS: bisacodyL 5 MG TABLET.DR PO (07:41)
[2021-10-23] MEDS: Doxazosin Mesylate 2 MG TABLET 4 MG PO (07:42)
[2021-10-23] MEDS: Acetaminophen Supp 650 MG SUPP.RECT PR (07:42)
[2021-10-23] MEDS: 0.9 % Sodium Chloride Flush 3 ML SYRINGE IVFLUSH (07:44)
[2021-10-23] MEDS: polyethylene glycoL 3350 17 GM POWD.PACK PO (07:44)
[2021-10-23] MEDS: Hydrocortisone 2.5 % Rectal Cr 30 GM TUBE 1 APPL PR (08:02)
--- NOTE | 2021-10-23 08:59 | MHC.CM.PN ---
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
--- NOTE | 2021-10-23 09:00 | MHC.CM.PN ---
Addendum entered by Kiara Loya 10/23/21 09:06: DEPT OF DEVELOPMENTAL DISABILITIES - T/C PAM PURDY [phone] SHE CONTINUES TO FOLLOW PATIENT AND AND REQUESTED CALL BACK WHEN DISCHARGED ,I INFORMED HER PATIENT WAS DISCHARGED TO [facility] , TODAY Original Note: nurse upper caser note spoke with asdmissions liason at [facility] . insurances auth confirmed and patient will be transported via [facility] at 10 am today t/c to hcp [facility] [phone] HE WAS AWARE OF DISCHARGE FOR TODAY . MESSAGE LEFT FOR WHAT TIME PATIENT WILL BE TRANSPORTED AND MY NAME AND CALL BACK NUMBER IF HE HAS ANY QUESTIONS. DISCHARGE PLAN [facility] TRANSPORT[facility] T/C TO HCP [facility] MEDICARE IMM 10/22/21
--- NOTE | 2021-10-23 09:49 | PM.DS ---
DS: Providers Provider Date of Service: 10/23/21 Date of admission: 10/12/21 02:08 Primary care physician: Vianey Ambrosio MD Consults: 10/12/21 02:06 Consult to General Surgery Routine Consulting Provider: Alvaro Jorgensen Reason for consultation: partial sbo Has provider been notified: No 10/18/21 07:37 Consult to Gastroenterology Routine Consulting Provider: Pb Stokes Reason for consultation: cricopharyngeal narrowing? dysphagia SBO DS: Diagnosis Discharge Diagnosis (1) Cricopharyngeal hypertrophy: Status: Acute (2) Oropharyngeal dysphagia: Status: Acute (3) Hypernatremia: Status: Acute (4) Acute kidney injury superimposed on CKD: Status: Acute (5) Partial small bowel obstruction: Status: Acute DS: Summary Hospital Course Hospital Course: Chief Complaint: n/v/abd pain This 76-year-old male with past medical history of prostate cancer, hypertension, CKD, asthma, arthritis, cerebral palsy, and chronic constipation who presents to the hospital with complaints of abdominal pain nausea vomiting.? Patient reports his symptoms started yesterday, the abdominal pain is diffuse, 10/10,? has constipation last BM yesterday, has? Nausea and vomiting, low oral intake, no fever or chills, denies any chest pain, no shortness of breath, reports urinary retention with no urgency or dysuria as well as no frequency.? Patient has no numbness tingling, no headache or change in vision, and no lower extremity edema.? He reports that he had a history of blockage in the colon, had leaking in the colon but unaware if he had colectomy.? He has an abdominal hernia On arrival to the ED patient hemodynamically stable Labs are significant for WBC count 17.7, hemoglobin 13.3, hematocrit 38.9, creatinine of 1.99, BUN of 44, no previous for comparison.? Alk-phos of 211, UA negative.? Abdomen pelvic CT shows test and is stomach and proximal small bowel with gradual transition to decompressed small bowel.? Gas and stool throughout the colon, this appearance not convincing for obstruction.? Early or partial obstruction is possible Hospital course 76yo M with CKD3, HTN, CHF, prostate CA admitted for dysphagia and pSBO probably related to prior abdominal surgeries for ulcer, patient was managed conservatively with NG tube, IV fluid and serial abdominal x-rays, repeat KUB showed progression of barium into the colon, therefore diet was gradually advanced currently patient is tolerating regular diet, was followed closely by General surgery no surgical intervention was required, patient continued complained of food and liquid stuck in his throat, but denies pain with swallowing currently tolerating regular diet, was followed closely by speech therapy he displayed mildly prolonged oral phase secondary to edentulous state therefore speech recommend chopped/advanced solids, moisten foods with sauce and gravy, speech recommend to avoid difficult to chew solids, continue thin liquids and pills whole or crushed in pureed patient displayed no overt sinus symptoms of aspiration outpatient MBS study is recommended, in regard to chronic constipation patient is recommended to continue all home medications, hold stool softeners for diarrhea. Barium swallow showed tight crico-esophageal junction likely giving sensation of lump in throat, status post upper endoscopy 10/18/21 that showed erosive esophagitis, hiatal hernia, gastric erosions and acute gastritis , patient has been placed on Prilosec 20 mg twice daily and recommend follow-up with Dr. Stokes from Gastroenterology in 3 months for repeat endoscopy. Patient also noted to have acute kidney injury with background of chronic kidney disease stage 3 and hypernatremia on admission, patient treated with fluids, Lasix discontinued renal function and sodium has normalized Lasix discontinued. In regard to chronic medical issues including hypertension patient noted to have few elevated blood pressure readings but manual blood pressures have been within normal range continue home medication Cardizem, metoprolol valsartan and Cardura 4 mg daily For recurrent cough recommend to use as needed Robitussin. For morbid obesity weight loss recommended. Time Spent with Patient Time attestation: Total time spent providing and/or coordinating discharge services: Discharge coordination time: Greater than 30 minutes Quality: Stroke Does the patient have a stroke diagnosis?: No Physical Exam Vital Signs: Vital Signs: Last Vital Signs Temp 98.0 F 10/23/21 07:27 Pulse 78 10/23/21 07:27 Resp 16 10/23/21 07:27 BP 165/85 H 10/23/21 07:27 Pulse Ox 94 10/23/21 07:27 Oxygen Flow Rate 2 10/21/21 14:00 BMI result Body Mass Index 41.8 Const: Other: Gen:? Awake alert, no distress Neck: supple, no JVD Lungs: clear to auscultation bilaterally Heart: regular rate and rhythm, no murmurs Abd: distended, obese, nontender, localized area of right upper quadrant tenderness at site of old laparotomy incision, bowel sounds audible, no guarding, no rigidity Ext: no edema Skin: warm/well-perfused Neuro: alert and oriented x3, no focal findings Psych: appropriate affect DS: Data Data Completed and Pending Completed studies during hospitalization [Text1]: Pending at discharge 10/18/21 14:55 Surgical [PTH] Routine Labs on day of discharge: Laboratory Results - last 24 hr 10/22/21 12:30 COVID-19 ([facility]) Negative COVID-19 Clin Com See Note Discharge Plan Discharge Patient Disposition: Xfer SNF Discharge Diagnosis: Partial small-bowel obstruction Erosive esophagitis Hypernatremia Dysphagia Prominent Cricoesophageal sphincter Referrals: ALIYA MARKS [Other] - 1 Day (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 , PENDING INS AUTH , TO BE TRANSFERRED VIA [facility] ) Vianey Ambrosio MD [Primary Care Provider] - 1 Week Discharge Medications: New omeprazole 20 mg capsule,delayed release(DR/EC) 20 mg PO BID Qty: 60 0RF Continued multivitamin Tablet 1 tab PO DAILY 0RF losartan 50 mg tablet 1 tab PO DAILY 0RF sennosides [Senna Laxative] 8.6 mg tablet 17.2 mg PO DAILY 0RF tizanidine 2 mg tablet 1 tab PO BEDTIME 0RF trazodone 50 mg tablet 25 mg PO BID PRN (Reason: Anxiety) 0RF lidocaine [Hemorrhoidal Relief] 5 % Cream 1 appl TOPICAL QID PRN (Reason: Hemorrhoids) 0RF pravastatin 10 mg tablet 1 tab PO BEDTIME 0RF metoprolol tartrate 50 mg tablet 1 tab PO BID 0RF docusate sodium 100 mg capsule 100 mg PO TID PRN (Reason: Constipation) 0RF doxazosin 4 mg tablet 1 tab PO DAILY 0RF diltiazem HCl 120 mg capsule,extended release 24hr 1 cap PO DAILY 0RF allopurinol 300 mg tablet 1 tab PO DAILY 0RF gabapentin 100 mg capsule 1 cap PO DAILY 0RF albuterol sulfate 90 mcg/actuation HFA aerosol inhaler 2 puff inhalation Q4H PRN (Reason: Wheezing) 0RF heparin (porcine) 5,000 unit/mL solution 5,000 unit subcut Q12H 0RF oxycodone 5 mg tablet 5 mg PO Q12H PRN (Reason: pain) 0RF bisacodyl 5 mg Tablet 5 mg PO Q48H 0RF cholecalciferol (vitamin D3) 25 mcg (1,000 unit) tablet 25 mcg PO BID 0RF Movantik 25 mg tablet 1 tab PO DAILY 0RF Changed polyethylene glycol 3350 17 gram/dose powder 17 g PO DAILY PRN (Reason: Constipation) Qty: 0 0RF Discontinued omeprazole 40 mg capsule,delayed release(DR/EC) 1 cap PO DAILY 0RF furosemide 20 mg tablet 1 tab PO DAILY 0RF fentanyl 25 mcg/hr patch 72 hour 1 patch topical Q3D 0RF Discharge Orders: Discharge Order (Routine); Ordered 10/23/21 Ordered By: Sara Rm Diet: advance to usual diet Activity on Discharge: As tolerated Stand Alone Forms: Patient Portal Discharge page Care Plan Goals: Erosive esophagitis follow-up with Dr. Pb Stokes for repeat upper endoscopy in 3 months, outpatient modified barium swallow, continue chopped /advanced NDD3 solid moisten foods with sauce gravy as needed, continue thin liquids, pills whole or crushed in puree Partial small-bowel obstruction resolved, Duragesic patch not resumed since patient with no pain, avoid narcotics use Tylenol for pain Use Robitussin DM as needed for cough Health Concerns: Continue all home medications as before Plan of Treatment: Outpatient follow-up with primary care physician Assessment: Per discharge summary
== END 2021-10-23 11:32 | disposition skilled nursing facility (03) | DRG 389 ==
LOC: HO.ED 10-12 02:08 → HO.EDOVER 10-12 02:12 → HO.S3 10-12 16:09
PROVIDERS: Family Medicine; Hospitalist; Internal Medicine Gastroenterology; Admitting Provider Internal Medicine; Emergency Provider Emergency Medicine Emergency Medical Services; PCP Internal Medicine; Visit Provider Hospitalist
PROC: 0DB78ZX Excision of Stomach, Pylorus, Via Natural or Artificial Opening Endoscopic, Diagnostic (ICD-10-PCS; principal; 2021-10-18 14:30)
DX: K56.51 Intestinal adhesions [bands], with partial obstruction (principal); I13.0 Hypertensive heart and chronic kidney disease with heart failure and stage 1 through stage 4 chronic kidney disease, or unspecified chronic kidney disease; N17.9 Acute kidney failure, unspecified; E87.0 Hyperosmolality and hypernatremia; Z68.41 Body mass index [BMI] 40.0-44.9, adult; K22.10 Ulcer of esophagus without bleeding; R13.12 Dysphagia, oropharyngeal phase; J39.2 Other diseases of pharynx; G80.9 Cerebral palsy, unspecified; J45.909 Unspecified asthma, uncomplicated; K44.9 Diaphragmatic hernia without obstruction or gangrene; K21.00 Gastro-esophageal reflux disease with esophagitis, without bleeding; E66.01 Morbid (severe) obesity due to excess calories; K31.7 Polyp of stomach and duodenum; K29.00 Acute gastritis without bleeding; Z85.46 Personal history of malignant neoplasm of prostate; N18.30 Chronic kidney disease, stage 3 unspecified; E86.0 Dehydration; I50.9 Heart failure, unspecified; Z20.822 Contact with and (suspected) exposure to COVID-19; Z87.891 Personal history of nicotine dependence; Z79.891 Long term (current) use of opiate analgesic; Z79.899 Other long term (current) drug therapy
CPT/HCPCS: 36415; 71045; 74018; 74176; 74240; 80048; 80053; 80076; 81001; 82272; 83690; 84295; 85025; 85027; 87635; 88305; 88342; 92526; 92610; 96361; 96374; 99285; J1170; J1200; J1650; J2270; J2405

== ENCOUNTER → 2022-02-05 | Day surgery (SDC) | payer OTHER, MEDICAID, SELFPAY ==
--- NOTE | 2022-02-04 10:38 | P.CONAN_ITS ---
HPI - Anesthesia Eval Consult details Narrative: 76yo M for Upper Endoscopy s/p EGD 10/2021 with [facility] SN[facility] resident Heparin BID for DVT prevention PMFSH Past Medical History Medical History Abdominal wall hernia Arthritis Asthma Cerebral palsy CHF (congestive heart failure) CKD (chronic kidney disease) Constipation Cricopharyngeal hypertrophy History of small bowel obstruction Hypertension Neoplasm of prostate Oropharyngeal dysphagia Family History Family History Other No family history of coronary artery disease Family history of problems with anesthesia: No Surgical History Surgical History H/O abdominal surgery History of Problems with Anesthesia: No Social History Social History 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: Other Housing: Senior Care Do you presently have visiting nurse or other home services: No Alcohol intake: current Alcohol intake frequency: holidays/special occasions only Patient Tobacco Use Status: Former Tobacco user Quit Date: age 30 Use of substances other than those prescribed or required for medical reasons: No Are you DNR?: No Advance Directives: Yes Advance Directives on File: Yes Advance Directives Date on File: 02/05/22 service: No Current occupational status: retired [employer] Allergies Allergy/AdvReac Type Severity Reaction Status Date / Time No Known Allergies Allergy Verified 10/11/21 23:34 Home Medications Medication Instructions Recorded Confirmed Last Taken Type albuterol sulfate 90 mcg/actuation 2 puff inhalation Q4H PRN Wheezing 10/12/21 02/05/22 02/05/22 History aerosol inhaler allopurinol 300 mg tablet 1 tab PO DAILY 10/12/21 02/05/22 02/05/22 History cholecalciferol (vitamin D3) 25 25 mcg PO BID 10/12/21 02/05/22 02/05/22 History mcg (1,000 unit) tablet diltiazem HCl 120 mg 1 cap PO DAILY 10/12/21 02/05/22 02/05/22 History capsule,extended release 24 hr docusate sodium 100 mg capsule 100 mg PO TID PRN Constipation 10/12/21 02/05/22 02/05/22 History doxazosin 4 mg tablet 1 tab PO DAILY 10/12/21 02/05/22 02/05/22 History gabapentin 100 mg capsule 1 cap PO DAILY 10/12/21 02/05/22 02/05/22 History heparin (porcine) 5,000 unit/mL 5,000 unit subcut Q12H 10/12/21 02/05/22 Unknown History injection solution lidocaine 5 % topical cream 1 appl topical QID PRN Hemorrhoids 10/12/21 02/05/22 02/05/22 History (Hemorrhoidal Relief) metoprolol tartrate 50 mg tablet 1 tab PO BID 10/12/21 02/05/22 02/05/22 History multivitamin 1 tab PO DAILY 10/12/21 02/05/22 02/05/22 History naloxegol 25 mg tablet (Movantik) 1 tab PO DAILY 10/12/21 02/05/22 02/05/22 History oxycodone 5 mg tablet 5 mg PO Q12H PRN pain 10/12/21 02/05/22 02/05/22 History pravastatin 10 mg tablet 1 tab PO BEDTIME 10/12/21 02/05/22 02/05/22 History sennosides 8.6 mg tablet (Senna 17.2 mg PO DAILY 10/12/21 02/05/22 02/05/22 History Laxative) tizanidine 2 mg tablet 1 tab PO BEDTIME 10/12/21 02/05/22 02/05/22 History trazodone 50 mg tablet 25 mg PO BID PRN Anxiety 10/12/21 02/05/22 02/05/22 History Exam Exam Date and Time: February 04, 2022 1038 Pertinent Lab Results Pertinent Lab Results: Laboratory Tests 10/22/21 10/22/21 05:36 05:36 WBC 9.5 Hgb 11.6 L Hct 34.7 L Plt Count 256 Sodium 140 Potassium 3.7 Chloride 105 Carbon Dioxide 25 BUN 6 L Creatinine 1.16 Assessment and Plan Assessment Anesthesia Assessment: Chart Reviewed Final Anesthetic Review Family History of Problems with Anesthesia: No History of Problems with Anesthesia: No
[2022-02-05 12:45] VITALS: BMI 41.4
--- NOTE | 2022-02-05 12:52 | P.CONAN_ITS ---
[facility] Past Medical History Medical History Abdominal wall hernia Arthritis Asthma Cerebral palsy CHF (congestive heart failure) CKD (chronic kidney disease) Constipation Cricopharyngeal hypertrophy History of small bowel obstruction Hypertension Neoplasm of prostate Oropharyngeal dysphagia Family History Family History Other No family history of coronary artery disease Family history of problems with anesthesia: No Surgical History Surgical History H/O abdominal surgery History of Problems with Anesthesia: No Social History Social History 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: Other Housing: Skilled Nursing Do you presently have visiting nurse or other home services: No Alcohol intake: current Alcohol intake frequency: holidays/special occasions only Patient Tobacco Use Status: Former Tobacco user Quit Date: age 30 Use of substances other than those prescribed or required for medical reasons: No Are you DNR?: No Advance Directives: Yes Advance Directives on File: Yes Advance Directives Date on File: 02/05/22 service: No Current occupational status: retired [employer] Allergies Allergy/AdvReac Type Severity Reaction Status Date / Time No Known Allergies Allergy Verified 10/11/21 23:34 Active Medications: Current Medications Albuterol Sulfate (Albuterol Sulfate (0.083%) 2.5 Mg/3 Ml Vial.Neb) 2.5 mg INHA LE ONCE PRN PRN Reason: Shortness of Breath/Wheezing Lactated Ringer's (Lr) 1,000 mls @ 50 mls/hr IVCONT .Q20H KERRI Ondansetron HCl (Ondansetron Hcl 4 Mg/2 Ml Vial) 4 mg IVPUSH ONCE PRN PRN Reason: Nausea and Vomiting Home Medications Medication Instructions Recorded Confirmed Last Taken Type albuterol sulfate 90 mcg/actuation 2 puff inhalation Q4H PRN Wheezing 10/12/21 02/05/22 Unknown History aerosol inhaler allopurinol 300 mg tablet 1 tab PO DAILY 10/12/21 02/05/22 Unknown History cholecalciferol (vitamin D3) 25 25 mcg PO BID 10/12/21 02/05/22 Unknown History mcg (1,000 unit) tablet diltiazem HCl 120 mg 1 cap PO DAILY 10/12/21 02/05/22 Unknown History capsule,extended release 24 hr docusate sodium 100 mg capsule 100 mg PO TID PRN Constipation 10/12/21 02/05/22 Unknown History doxazosin 4 mg tablet 1 tab PO DAILY 10/12/21 02/05/22 Unknown History gabapentin 100 mg capsule 1 cap PO DAILY 10/12/21 02/05/22 Unknown History heparin (porcine) 5,000 unit/mL 5,000 unit subcut Q12H 10/12/21 02/05/22 Unknown History injection solution lidocaine 5 % topical cream 1 appl topical QID PRN Hemorrhoids 10/12/21 02/05/22 Unknown History (Hemorrhoidal Relief) metoprolol tartrate 50 mg tablet 1 tab PO BID 10/12/21 02/05/22 02/05/22 History multivitamin 1 tab PO DAILY 10/12/21 02/05/22 Unknown History naloxegol 25 mg tablet (Movantik) 1 tab PO DAILY 10/12/21 02/05/22 Unknown History oxycodone 5 mg tablet 5 mg PO Q12H PRN pain 10/12/21 02/05/22 Unknown History pravastatin 10 mg tablet 1 tab PO BEDTIME 10/12/21 02/05/22 Unknown History sennosides 8.6 mg tablet (Senna 17.2 mg PO DAILY 10/12/21 02/05/22 Unknown History Laxative) tizanidine 2 mg tablet 1 tab PO BEDTIME 10/12/21 02/05/22 Unknown History trazodone 50 mg tablet 25 mg PO BID PRN Anxiety 10/12/21 02/05/22 Unknown History Exam Exam Date and Time: February 05, 2022 1252 Height,Weight and Vital Signs: Height 5 ft 5 in Weight 112.945 kg Airway Mallampati Class: III TM Dist: >3cm Neck ROM: Full Denture: Upper and Lower Heart: rrr Lungs: clear Assessment and Plan Final Anesthetic Review Family History of Problems with Anesthesia: No History of Problems with Anesthesia: No NPO: Yes ASA Class: V Final Preanesthetic Review: No Changes in Pt Med Stat, Meds/Allgs Chart Revie wed, Consent Obtained/Reviewed and Anes Risks/Benef Reviewed Patient Risk: High Procedure Risk: Intermediate Anesthetic Plan Anesthetic Plan: MAC: Disposition: Standard PACU
[2022-02-05 12:53] VITALS: BP 138/71; PULSE 77; RESP 18; TEMP 36.8; O2SAT 97
--- NOTE | 2022-02-05 13:03 | MHC.SHP ---
Pre-Procedural Eval Section A Date of Service: 02/05/22 The patient is an INPATIENT: No The History & Physical has been completed within 30 days and I have reviewed it.: No Section B Chief Complaint: Dysphagia, esophagitis,reflux Details of Present Illness: Dysphagia, GERD Relevant Family History (Specify if Yes): No Relevant Social History: Tobacco Use (Former smoker) Present Medications: see Short Stay Collaborative assessment Medical History: Significant History (Arthritis Asthma Cerebral palsy CHF (congestive heart failure) CKD (chronic kidney disease) Constipation History of small bowel obstruction Hypertension Neoplasm of prostate) History of Previous Operations: Relevant previous surgery/procedure and date(s) (History of abdominal surgery) Allergies: Allergies Allergy/AdvReac Type Severity Reaction Status Date / Time No Known Allergies Allergy Verified 10/11/21 23:34 Review of Systems Sugical H&P ROS: Negative: Constitution, Cardiovascular and Respiratory and Yes, Specify: Gastrointestinal (dysphagia) Exam Surgical H&P Exam: Normal: Heart, Normal: Lungs, Normal: Extremities and Normal: Abdomen Plan Diagnosis/Plan: Unchanged I have reviewed the history and physical and performed a pertinent physical examination on my patient. No changes have occurred unless specified.
--- NOTE | 2022-02-05 13:06 | PM.OP ---
Brief Operative Note Date of Service: 02/05/22 Pre-op diagnosis: Dysphagia, GERD, cricopharyngeal hypertrophy Post-op diagnosis: other (GERD, dysphagia, hiatal hernia, gastric polyps) Procedure: FLEXIBLE TRANSORAL UPPER GASTROINTESTINAL ENDOSCOPY WITH BIOPSIES AND ESOPHAGEAL BALLOON DILATOR Consent: Indications for the procedure and potential complications of bleeding, perforation, reaction to medications and missed diagnosis were discussed with the patient and informed consent was obtained. Instrument: Olympus GIF H 190 mid size upper endoscope Monitoring: Vital signs and clinical assessment, continuous EKG monitoring, Pulse oximetry, Carbon Dioxide monitoring and blood pressure monitoring were done throughout the procedure. Procedure: The patient was placed in the left lateral decubitis position and pre-procedure medications were administered and a bite block was placed. The endoscope was inserted into the mouth and advanced under direct vision to the third part of duodenum. A careful inspection was made as the upper endoscope was withdrawn including a retroflexed examination of the proximal stomach; Findings and interventions are described below. Findings: Larynx: Normal Esophagus: Tortuous esophagus with increased tertiary contractions without stricture or ring. GE junction at 36 cms, hiatal hernia 36 to 40 cms.? Esophagitis noted on past EGD appears to have healed completely. Multiple 1-2 cm tongues of suspected Barretts from 34-36 cms - biopsies were obtained. Esophageal balloon dilation was performed of the distal esophagus with a 15 mm CRE balloon x 60 seconds Balloon dilation was performed in the proximal esophagus/cricopharyngeus with a 15 mm (45F) CRE balloon x 60 seconds Stomach: Moderate diffuse gastric erythema with nodular appearing gastric mucosa. Multiple 3-5 mm benign appearing polyps were seen in the gastric body and biopsied. Grade 4 flap valve on retroflexed examination of the cardia. Duodenum: Normal bulb and descending duodenum Intervention: Biopsies and esophageal balloon dilation as noted above Impression and Post Procedure Diagnosis: Endoscopy Findings: ESOPHAGUS: Tortuous esophagus with increased tertiary contractions without stricture or ring. GE junction at 36 cms, hiatal hernia 36 to 40 cms.? Esophagitis noted on past EGD appears to have healed completely. Multiple 1-2 cm tongues of suspected Barretts from 34-36 cms - biopsies were obtained. Esophageal balloon dilation was performed of the distal esophagus with a 15 mm CRE balloon x 60 seconds Balloon dilation was performed in the proximal esophagus/cricopharyngeus with a 15 mm (45F) CRE balloon x 60 seconds STOMACH: Gastritis and gastric polyps Plan: Patient has an appointment on 06/13/22 in the GI Clinic with Pb Stokes M.D. Above findings were reviewed with the patient and GERD, Hiatal Hernia and Gastric Polyps handouts were given in the discharge area ADDENDUM: Biopsies showed: A.? Stomach, polyp, biopsy:? Fundic gland polyp.? B.? Gastroesophageal junction, biopsy:? Squamous and columnar junctional mucosa with moderate chronic inactive inflammation and scattered intraepithelial eosinophils consistent with reflux esophagitis; negative for intestinal metaplasia and dysplasia. Surgeon: Pb Stokes MD Anesthesia: MAC (Dr Duncan) Was an Application Integrator used for this Procedure?: Yes Application Integrator: Kristi Aguilar Estimated blood loss (mL): 0 Pathology: other ( A. gastric polyp bxs B. G-E junction bxs, R/O Rey's esophagus) Condition: stable Disposition: PACU
[2022-02-05] MEDS: Lactated Ringers 1,000 ML 50 ML IVCONT (13:08)
--- NOTE | 2022-02-05 14:16 | W.PM.OPN ---
Operative Note Operative Note Date of Service: 02/05/22 Narrative: Pre-op diagnosis: Dysphagia, GERD, cricopharyngeal hypertrophy Post-op diagnosis:?other (GERD, dysphagia, hiatal hernia, gastric polyps) Procedure: FLEXIBLE TRANSORAL UPPER GASTROINTESTINAL ENDOSCOPY WITH BIOPSIES AND ESOPHAGEAL BALLOON DILATION Consent:?Indications for the procedure and potential complications of bleeding, perforation, reaction to medications and missed diagnosis were discussed with the patient and informed consent was obtained. Instrument:?Olympus GIF H 190 mid size upper endoscope Monitoring: Vital signs and clinical assessment, continuous EKG monitoring, Pulse oximetry, Carbon Dioxide monitoring and blood pressure monitoring were done throughout the procedure. Procedure:?The patient was placed in the left lateral decubitis position and pre-procedure medications were administered and a bite block was placed. The endoscope was inserted into the mouth and advanced under direct vision to the third part of duodenum. A careful inspection was made as the upper endoscope was withdrawn including a retroflexed examination of the proximal stomach; Findings and interventions are described below. Findings: Larynx:? Normal Esophagus:? Tortuous esophagus with increased tertiary contractions without stricture or ring.? GE junction at 36 cms, hiatal hernia 36 to 40 cms.? Esophagitis noted on past EGD appears to have healed completely. Multiple 1-2 cm tongues of suspected Barretts from 34-36 cms - biopsies were obtained. Esophageal balloon dilation was performed of the distal esophagus with a 15 mm CRE balloon x 60 seconds Balloon dilation was performed in the proximal esophagus/cricopharyngeus with a 15 mm (45F) CRE balloon x 60 seconds Stomach: Moderate diffuse gastric erythema with nodular appearing gastric mucosa. Multiple 3-5 mm benign appearing polyps were seen in the gastric body and biopsied. Grade 4 flap valve on retroflexed examination of the cardia. Duodenum: Normal bulb and descending duodenum Intervention: Biopsies and esophageal balloon dilation as noted above Impression and Post Procedure Diagnosis: Endoscopy Findings: ESOPHAGUS: Tortuous esophagus with increased tertiary contractions without stricture or ring.? GE junction at 36 cms, hiatal hernia 36 to 40 cms.? Esophagitis noted on past EGD appears to have healed completely. Multiple 1-2 cm tongues of suspected Barretts from 34-36 cms - biopsies were obtained. Esophageal balloon dilation was performed of the distal esophagus with a 15 mm CRE balloon x 60 seconds Balloon dilation was performed in the proximal esophagus/cricopharyngeus with a 15 mm (45F) CRE balloon x 60 seconds STOMACH: Gastritis and gastric polyps Plan:? Patient has an appointment on 06/13/22 in the GI Clinic with Pb Stokes M.D. Above findings were reviewed with the patient and GERD, Hiatal Hernia and Gastric Polyps handouts were given in the discharge area ADDENDUM:? Biopsies showed: A.? Stomach, polyp, biopsy:? Fundic gland polyp.? B.? Gastroesophageal junction, biopsy:? Squamous and columnar junctional mucosa with moderate chronic inactive inflammation and scattered intraepithelial eosinophils consistent with reflux esophagitis; negative for intestinal metaplasia and dysplasia. Surgeon: Pb Stokes MD Anesthesia:?MAC (Dr Duncan) Was an Travel Journalist used for this Procedure?:?Yes Travel Journalist:?Kristi Aguilar Estimated blood loss (mL):?0 Pathology:?other ( A. gastric polyp bxs? B. G-E junction bxs, R/O Rey's esophagus) Condition:?stable Disposition:?PACU
[2022-02-05 14:20] VITALS: BP 140/81; PULSE 73; RESP 17; TEMP 36.2; O2SAT 92
[2022-02-05 14:35] VITALS: BP 150/78; PULSE 82; RESP 18; TEMP 36.1; O2SAT 97
== END | disposition home or self-care (01) ==
PROVIDERS: PCP Internal Medicine; Visit Provider Internal Medicine Gastroenterology
PROC: 0DJ08ZZ Inspection of Upper Intestinal Tract, Via Natural or Artificial Opening Endoscopic (ICD-10-PCS; CPT 43235; principal; 2022-02-05 11:40)
DX: K21.9 Gastro-esophageal reflux disease without esophagitis (principal); R13.10 Dysphagia, unspecified; J39.2 Other diseases of pharynx; K22.89 Other specified disease of esophagus; K29.70 Gastritis, unspecified, without bleeding; K31.7 Polyp of stomach and duodenum; K44.9 Diaphragmatic hernia without obstruction or gangrene; I13.0 Hypertensive heart and chronic kidney disease with heart failure and stage 1 through stage 4 chronic kidney disease, or unspecified chronic kidney disease; N18.9 Chronic kidney disease, unspecified; I50.9 Heart failure, unspecified; G80.9 Cerebral palsy, unspecified; J45.909 Unspecified asthma, uncomplicated; K59.00 Constipation, unspecified; Z79.899 Other long term (current) drug therapy; Z87.891 Personal history of nicotine dependence
CPT/HCPCS: 43249; 43239; 88305; 88342; C1726

== ENCOUNTER 2022-06-13 09:59 | Outpatient (AMB) | payer OTHER, MEDICAID, SELFPAY ==
--- NOTE | 2022-06-13 10:13 | MHC.OFFVIS ---
Intake Vital Signs 06/13/22 10:15 Height 5 ft 5 in Blood Pressure Location Lt brachial Position Sitting Intake Visit Reasons: Follow up EGD Intake Note: Patient follow up for EGD results. 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 Accompanied by: Self / Same As Patient Allergies No Known Allergies Allergy (Verified 06/13/22 10:12) PFSH Medical History Abdominal wall hernia Arthritis Asthma Cerebral palsy CHF (congestive heart failure) CKD (chronic kidney disease) Constipation Cricopharyngeal hypertrophy History of small bowel obstruction Hypertension Neoplasm of prostate Oropharyngeal dysphagia Surgical History H/O abdominal surgery History of esophagogastroduodenoscopy (EGD) Family History Other No family history of coronary artery disease Social History 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: Other Housing: Correction Do you presently have visiting nurse or other home services: No Alcohol intake: current Alcohol intake frequency: holidays/special occasions only Patient Tobacco Use Status: Former Tobacco user Quit Date: age 30 Advance Directives Date on File: 02/05/22 service: No 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
[2022-06-13 10:15] VITALS: BP 140/65; PULSE 80; BMI 41.4
--- NOTE | 2022-06-13 10:23 | A.OFFVIS_ITS ---
Intake Vital Signs 06/13/22 10:15 Height 5 ft 5 in Weight 249 lb BMI 41.4 BP 140/65 H Blood Pressure Location Lt brachial Position Sitting Pulse 80 Intake Visit Reasons: Follow up EGD Intake Note: Patient follow up for EGD results. Patient cc: lower abdominal pain, blloating, heartburn on and off, some dysphagia and between diarrhea and constipation. 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 Accompanied by: Self / Same As Patient Allergies No Known Allergies Allergy (Verified 06/13/22 10:25) Medication List - Last Reconciled 06/13/22 by Pb Stokes MD acetaminophen 650 mg PO Q6H PRN albuterol sulfate 90 mcg/actuation 2 puffs inhalation Q4H PRN allopurinol 1 tab PO DAILY cholecalciferol (vitamin D3) 25 mcg PO BID diltiazem HCl 1 cap PO DAILY docusate sodium 100 mg PO TID PRN doxazosin 1 tab PO DAILY escitalopram oxalate 10 mg PO DAILY gabapentin 1 cap PO DAILY heparin (porcine) 5,000 units subcut Q12H lidocaine 5% (Hemorrhoidal Relief) 1 appl topical QID PRN metoprolol tartrate 1 tab PO BID multivitamin 1 tab PO DAILY naloxegol (Movantik) 1 tab PO DAILY omeprazole 20 mg PO BID oxycodone 5 mg PO Q12H PRN pravastatin 1 tab PO BEDTIME sennosides (Senna Laxative) 17.2 mg PO DAILY tizanidine 1 tab PO BEDTIME trazodone 25 mg PO BID PRN HPI Follow up EGD HPI Details GI clinic visit for this 76 YM for FU after recent hospitalization to discuss EGD results IMAGING STUDIES:? 10/17/21 BARIUM SWALLOW WITH SMALL-BOWEL FOLLOW-THROUGH SHOWED: Prominent cricoesophageal sphincter indenting the cervical esophagus. No obstruction. No laryngeal penetration or aspiration. ? Distended stomach and proximal duodenal and jejunal loops suspicious for at least partial obstruction in the proximal jejunum. There are segments of small bowel narrowing on the previous CT abdomen exam 10/12/2021. ? Recommend KUB in 4 to 6 hours. 10/12/[address] SCAN SHOWED: Distended stomach and proximal small bowel with gradual transition to decompressed small bowel. Gas and stool throughout the colon. This appearance is not convincing for obstruction, although early or partial obstruction is possible ENDOSCOPIC STUDIES: 01/2022 EGD SHOWED: ESOPHAGUS: Tortuous esophagus with increased tertiary contractions without str icture or ring.? GE junction at 36 cms, hiatal hernia 36 to 40 cms.? Esophagitis noted on past EGD appears to have healed completely. Multiple 1-2 cm tongues of suspected Barretts from 34-36 cms - biopsies were obtained. Esophageal balloon dilation was performed of the distal esophagus with a 15 mm CRE balloon x 60 seconds Balloon dilation was performed in the proximal esophagus/cricopharyngeus with a 15 mm (45F) CRE balloon x 60 seconds STOMACH: Gastritis and gastric polyps Plan:? Patient has an appointment on 06/13/22 in the GI Clinic with Pb Stokes M.D. Above findings were reviewed with the patient and GERD, Hiatal Hernia and Gastric Polyps handouts were given in the discharge area ADDENDUM:? Biopsies showed: A.? Stomach, polyp, biopsy:? Fundic gland polyp.? B.? Gastroesophageal junction, biopsy:? Squamous and columnar junctional mucosa with moderate chronic inactive inflammation and scattered intraepithelial eosinophils consistent with reflux esophagitis; negative for intestinal metaplasia and dysplasia. TODAY'S VISIT: He had multiple abdominal surgeries in the past. Complains of periumblical pain for the past 2 to 3 weeks. Has a hard time having a BM which varies between hard and soft stools Had watery BMs this morning. Intermittent heartburn Intermittent loss of appetite - does not throw up. Whole body is in pain ? related Lost some weight (wt was 249 in the past) Oncologist is in Dr Farrar at [address] [place] [address]. Getting the shots every 6 months. Unable to go this month since he is in a Detention - [place]. PAST GI HISTORY BY REVIEW OF MEDICAL RECORDS: Patient denies symptoms of abdominal pain. He has a hx of heartburn and has been on medications in the past. He notes dysphagia to solids and liquids for the past year and has had past evaluations with an EGD. He admits to couging spells with dysphagia and denies hoarseness. Pt complains of diffuse abdominal pain on admission. He has been passing some gas and had a soft BM yesterday and today. Pt denies recent change in appetite or weight. Patient has Cerebral Palsy and is unable to read or write. He uses a walker for small distances and an electrical scooter. Patient has asthma and CHF Pt is atatus post explor lap x 2 for bowel obstruction. Denies being on chronic anticoagulation. Patient denies smoking and takes alcohol occasionally. Patient is single and has no children and is currently living in a intermediate. Patient denies known family history of colon polyps, colon cancer or other GI malignancies. His HCP is a friend who lives in [place] -?Rober Yañez [phone]. IMAGING STUDIES:? 10/17/21 BARIUM SWALLOW WITH SMALL-BOWEL FOLLOW-THROUGH SHOWED: Prominent cricoesophageal sphincter indenting the cervical esophagus. No obstruction. No laryngeal penetration or aspiration. ? Distended stomach and proximal duodenal and jejunal loops suspicious for at least partial obstruction in the proximal jejunum. There are segments of small bowel narrowing on the previous CT abdomen exam 10/12/2021. ? Recommend KUB in 4 to 6 hours. 10/12/[address] SCAN SHOWED: Distended stomach and proximal small bowel with gradual transition to decompressed small bowel. Gas and stool throughout the colon. This appearance is not convincing for obstruction, although early or partial obstruction is PFSH Medical History Abdominal pain Abdominal wall hernia Arthritis Asthma Cerebral palsy CHF (congestive heart failure) CKD (chronic kidney disease) Constipation Cricopharyngeal hypertrophy History of small bowel obstruction Hypertension Neoplasm of prostate Oropharyngeal dysphagia Surgical History H/O abdominal surgery History of esophagogastroduodenoscopy (EGD) Family History Other No family history of coronary artery disease Social History 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: Caregiver Housing: Detention Housing Other:: [place] Do you presently have visiting nurse or other home services: No Alcohol intake: never Patient Tobacco Use Status: Former Tobacco user Quit Date: age 30 Advance Directives Date on File: 02/05/22 service: No Current occupational status: retired Physical Exam Vital Signs: Last Vital Signs Pulse 80 06/13/22 10:15 BP 140/65 H 06/13/22 10:15 BMI result Body Mass Index 41.4 Const General: healthy appearing, no acute distress and other (has cerebral palsy) Nutritional Appearance: obese Orientation/consciousness: patient oriented x3 HEENT Head: Yes normal to inspection Ears: hearing grossly normal bilaterally Mouth: Normal oral and palatal mucosa present Eyes Sclerae: sclerae normal Pupils: Equal, round and reactive pupils present Neck Neck: Yes normal visual inspection Chest Chest palpation & inspection: normal inspection of the chest Resp Effort & Inspection: normal respiratory effort Auscultation: clear to auscultation bilaterally Cardio Palpation: normal PMI Rate: regular rate Rhythm: regular rhythm Heart sounds: S1 normal heart sound present, S2 normal heart sound present and no murmurs GI Inspection: Yes visible herniation Palpation (GI): Soft to palpation, Tenderness to palpation present (GI) (mild diffuse abdominal tenderness) and No hepatosplenomegaly present Auscultation: normal bowel sounds Rectal Exam - Male: Yes deferred Skin General skin exam: no rashes or lesions noted Neuro General: patient oriented x3, gait normal and moves all extremities Cranial nerves: Yes Equal, round and reactive pupils present Psych Appearance: grossly normal Mental Status: mental status grossly normal Assessment & Plan Assessment & Plan (1) History of small bowel obstruction: Code(s): Z87.19 - Personal history of other diseases of the digestive system (2) Cricopharyngeal hypertrophy: Code(s): J39.2 - Other diseases of pharynx Plan 76-year-old male with prostate cancer, hypertension, CKD, asthma, arthritis, cerebral palsy, and chronic constipation complaining of abdominal pain with bloating and distension.? He reports that he had a history of blockage in the colon, had leaking in the colon but unaware if he had colectomy.? He has an abdominal hernia Past Abdomen pelvic CT showed distended stomach and proximal small bowel with gradual transition to decompressed small bowel.? Gas and stool throughout the colon, this appearance not convincing for obstruction.? Early or partial obstruction is possible Barium swallow showed hypertrophy of the cricopharyngeus. Patient was advised to be evaluated in the ED for worsening abdominal pain and rule out partial small-bowel obstruction. ADDENDUM: Abd CT scan showed: Ventral hernia containing knuckle of small bowel. There is a caliber change of the small bowel in this region questionable for partial small bowel obstruction. Constipation. Mild wall thickening of the distal colon questionable for stercoral colitis. Bilateral renal cysts. Mild cirrhotic changes of the liver. ? Pt was admitted for management for partial SBO Coding Level of Care Code Est Pt Level 4 (16366) Diagnoses History of small bowel obstruction Z87.19 Cricopharyngeal hypertrophy J39.2 Time Spent (min) 21
== END 2022-06-13 12:12 | disposition home or self-care (01) ==
LOC: HO.HGI 09:59
PROVIDERS: PCP Internal Medicine; Referring Provider Internal Medicine; Visit Provider Internal Medicine Gastroenterology
DX: Z87.19 Personal history of other diseases of the digestive system (principal); J39.2 Other diseases of pharynx
CPT/HCPCS: 99214

== ENCOUNTER 2022-06-13 11:32 | Inpatient (IN) | payer OTHER, MEDICAID, SELFPAY ==
--- NOTE | ~2022-06-13 | CT_ITS ---
EXAMINATION: CT ABDOMEN AND PELVIS WITHOUT CONTRAST CLINICAL INFORMATION: Abdominal pain COMPARISON: Previous CT of the abdomen and pelvis September 2021 TECHNIQUE: Multidetector volumetric imaging was performed from the superior aspect of the liver through the pubic symphysis. Sagittal and coronal reformatted images were obtained on the technologist's workstation. This CT examination was performed using dose optimization techniques as appropriate, variously including the following: *Automated exposure control *Adjustment of mA and/or kV according to patient size (this includes techniques or standardized protocols for targeted exams where dose is matched to indication/reason for exam; i.e. extremities or head) *Use of iterative reconstruction technique DLP: 2260 mGy-cm FINDINGS: LUNG BASES: The visualized lung bases are unremarkable. LIVER, GALLBLADDER, AND BILIARY TREE: The liver has a lobular contour. The left lobe and caudate lobe are prominent. Findings are suggestive of mild cirrhosis. No focal liver lesion is seen. The gallbladder is normal. PANCREAS: Unremarkable. SPLEEN: Unremarkable. ADRENAL GLANDS: Unremarkable. KIDNEYS AND URETERS: There are bilateral renal cysts. These are stable. No imaging follow-up. BLADDER: Unremarkable. GASTROINTESTINAL TRACT: There is a ventral hernia. There is a loop of small bowel that extends into the hernia. This is at the level of the small bowel anastomosis with surgical suture line. There is slight caliber change in this region questionable for partial small bowel obstruction. There is stool throughout the colon suggestive of constipation. There is wall thickening of the distal colon questionable for mild stercoral colitis related to chronic constipation. The appendix is normal. ABDOMINAL WALL: See above. LYMPH NODES: Normal. VASCULAR: Unremarkable. PELVIC VISCERA: Unremarkable. OSSEOUS STRUCTURES: There are bilateral hip replacements. There are degenerative changes of the spine. There are multiple sclerotic densities in the left iliac bone that are stable. CT/CT abdomen pelvis wo IV con IMPRESSION: Ventral hernia containing knuckle of small bowel. There is a caliber change of the small bowel in this region questionable for partial small bowel obstruction. Constipation. Mild wall thickening of the distal colon questionable for stercoral colitis. Bilateral renal cysts. Mild cirrhotic changes of the liver. Fleischner guidelines were followed.
[2022-06-13 11:51] VITALS: BP 140/82; PULSE 80; RESP 18; TEMP 37.2; O2SAT 92; BMI 38.2
[2022-06-13 13:39] LABS: Appearance Urine Clear; Color Urine Yellow; Glucose Urine UA 100 mg/dL (Negative); Leukocyte Esterase Urine Negative (Negative); Nitrite Urine Negative (Negative); PH 5.5 (5.0-9.0); UMIC TRIGGER UACC YES; Urine Blood Negative (Negative); Urine Ketones Negative (Negative); Urine Protein >=1000 (4+) mg/dL (Neg-Trace)
[2022-06-13 13:41] LABS: Bacteria Urine Trace (None Seen); Hyaline Casts Urine 0-2 /LPF (0-2); RBC Urine 0-2 /HPF (0-2); Squamous Epithelial Cell Urine 0-2 /HPF (0-2); WBC Urine 0-5 /HPF (0-5)
[2022-06-13 13:44] LABS: Basophils Absolute Auto 0.1 X10*3/uL (0.0-0.2); Basophils Percent Auto 1.3 % (0-2); Eosinophils Absolute Auto 0.3 X10*3/uL (0.0-0.4); Eosinophils Percent Auto 3.2 % (0-4); Hematocrit 37.7 % (42.0-52.0); Hemoglobin 12.4 g/dl (14.0-18.0); Imm Gran Abs Auto 0.27 X10*3/uL (0.00-0.03); Imm Gran Pct Auto 2.6 % (0.0-0.4); Lymphocytes Absolute Auto 3.3 X10*3/uL (1.2-4.9); Lymphocytes Percent Auto 31.7 % (20-40); MANUAL DIFF FLAG SCAN; Mean Corpuscular HGB Conc 32.9 g/dl (31.0-36.0); Mean Corpuscular Hemoglobin 30.2 pg (27.0-33.0); Mean Corpuscular Volume 91.7 fL (80.0-98.0); Mean Platelet Volume 10.2 fL (9.4-12.4); Monocytes Absolute Auto 0.9 X10*3/uL (0.1-1.2); Monocytes Percent Auto 9.1 % (2-11); Neutrophils Absolute Auto 5.4 x10*3/uL (2.0-8.3); Neutrophils Percent Auto 52.1 % (45-73); PLT CLUMP 1; Prothrombin Time 11.2 SEC (10.0-13.1); Red Blood Count 4.11 X10*6/uL (4.60-5.80); Red Cell Distribution Width 13.8 % (11.0-16.0); SCAN SMEAR FLAG 1
[2022-06-13 13:50] LABS: COVID-19 Test Negative (Negative); IDNOW Serial# 16C4AD1C
[2022-06-13 14:01] LABS: Alanine Aminotransferase 20 U/L (0-40); Albumin Level 3.9 g/dL (3.5-5.0); Alkaline Phosphatase 126 U/L (39-117); Anion Gap 16 (12-20); Aspartate Amino Transferase 19 U/L (5-37); Bilirubin Direct < 0.2 mg/dL (0.0-0.5); Bilirubin Total < 0.2 mg/dL (0.0-1.0); Blood Urea Nitrogen 14 mg/dL (9-16); Calcium 9.4 mg/dL (8.4-10.2); Carbon Dioxide 25 mmol/L (22-29); Chloride 103 mmol/L (96-108); Creatinine Clr Calc Pharmacy 59.7; Estimated Glomerular Filt Rate > 60; Glucose Random 117 mg/dL (60-115); Lipase 34 U/L (8-78); Magnesium 1.4 mg/dL (1.6-2.6); Sodium 140 mmol/L (135-145); Total Protein 7.3 g/dL (6.5-8.0)
[2022-06-13 14:05] LABS: Platelet Count 432 X10*3/uL (160-400); White Blood Count 10.3 X10*3/uL (4.8-10.8)
[2022-06-13 14:06] LABS: SLIDE REVIEW VERIFIED
[2022-06-13 15:25] VITALS: BP 139/76; PULSE 84; RESP 18; TEMP 36.1; O2SAT 94
--- NOTE | 2022-06-13 16:33 | ED_ITS ---
HPI - Abdominal Pain General Chief Complaint: Abdominal Pain Stated Complaint: abd pain Time Seen by Provider: 06/13/22 16:30 Source: patient Mode of arrival: ambulatory Limitations: no limitations History of Present Illness HPI narrative: 76-year-old male presents with 2 weeks of severe abdominal pain, has history of multiple abdominal surgeries and a known ventral hernia. Patient has had several blockages in the past, and states that he feels the same. He has had poor p.o. intake over the past few days, and reports to have a distended abdomen and has had some constipation. He does not report nausea or vomiting, denies fevers, chills, chest pain or pressure, palpitations, weakness or edema. MD elicited complaint: abdominal pain Pertinent past history: constipation Onset (ago): week(s) (2) Pain Consistency: constant Location: diffuse Severity: severe Pain scale (0-10): 9 Quality: cramping and aching Radiation: other (Ventral) Migration to: no migration Exacerbating factors: bowel movement and movement Relieving factors: nothing Context: history of similar episodes Associated symptoms: constipation Related Data Home Medications Medication Instructions Recorded Confirmed albuterol sulfate 90 mcg/actuation 2 puff inhalation Q4H PRN 10/12/21 06/13/22 aerosol inhaler Shortness Of Breath allopurinol 300 mg tablet 1 tab PO DAILY 10/12/21 06/13/22 cholecalciferol (vitamin D3) 25 25 mcg PO BID 10/12/21 06/13/22 mcg (1,000 unit) tablet diltiazem HCl 120 mg 1 cap PO DAILY 10/12/21 06/13/22 capsule,extended release 24 hr docusate sodium 100 mg capsule 100 mg PO TID PRN Constipation 10/12/21 06/13/22 doxazosin 4 mg tablet 1 tab PO DAILY 10/12/21 06/13/22 gabapentin 100 mg capsule 1 cap PO DAILY 10/12/21 06/13/22 heparin (porcine) 5,000 unit/mL 5,000 unit subcut Q12H 10/12/21 06/13/22 injection solution lidocaine 5 % topical cream 1 appl topical QID PRN Hemorrhoids 10/12/21 06/13/22 (Hemorrhoidal Relief) metoprolol tartrate 50 mg tablet 1 tab PO BID 10/12/21 06/13/22 multivitamin 1 tab PO DAILY 10/12/21 06/13/22 naloxegol 25 mg tablet (Movantik) 1 tab PO DAILY 10/12/21 06/13/22 oxycodone 5 mg tablet 5 mg PO Q12H PRN pain 10/12/21 06/13/22 pravastatin 10 mg tablet 1 tab PO BEDTIME 10/12/21 06/13/22 sennosides 8.6 mg tablet (Senna 17.2 mg PO DAILY 10/12/21 06/13/22 Laxative) tizanidine 2 mg tablet 1 tab PO BEDTIME 10/12/21 06/13/22 trazodone 50 mg tablet 25 mg PO BID PRN Anxiety 10/12/21 06/13/22 acetaminophen 325 mg capsule 650 mg PO Q6H PRN MILD PAIN/TEMP 06/13/22 06/13/22 escitalopram oxalate 10 mg tablet 10 mg PO DAILY 06/13/22 06/13/22 Previous Rx's Medication Instructions Recorded omeprazole 20 mg capsule,delayed 20 mg PO BID #60 caps 10/22/21 release Allergies Allergy/AdvReac Type Severity Reaction Status Date / Time No Known Allergies Allergy Verified 06/13/22 10:25 Review of Systems Review of Systems Constitutional: No Fever, No Chills ENT/Mouth: No Ear Pain, No Hoarseness, No sore throat Eyes: No Eye Pain, No Swelling, No Redness, No Foreign Body Cardiovascular: No Chest Pain, No SOB Respiratory: No Cough, No Dyspnea Gastrointestinal: No Nausea, No Vomiting, No Diarrhea, positive abdominal Pain, positive constipation Genitourinary: No Dysuria, No Hematuria Musculoskeletal: No joint pain, No Myalgias, No Joint Swelling Skin: No Skin lacerations, No rash Neuro: No Weakness, No Numbness, No Paresthesias, No Loss of Consciousness, No Dizziness, No Headache Psych: No Anxiety/Panic, No Depression Heme/Lymph: no easy bruising, no Lymphadenopathy Endocrine: No Polyuria, No Polydipsia Yes all other systems are reviewed and are negative [facility] Past Medical History Attestation statement: The following information was validated with the patient. Source: old records reviewed Medical History (Updated 06/13/22 @ 17:18 by Ирина Saavedra NP) Abdominal pain Abdominal wall hernia Arthritis Asthma Cerebral palsy CHF (congestive heart failure) CKD (chronic kidney disease) Constipation Cricopharyngeal hypertrophy History of small bowel obstruction Hypertension Neoplasm of prostate Oropharyngeal dysphagia Surgical History H/O abdominal surgery History of esophagogastroduodenoscopy (EGD) Family History Family History Other No family history of coronary artery disease Social History Social History 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: Other Housing: Group Home Do you presently have visiting nurse or other home services: No Alcohol intake: current Alcohol intake frequency: holidays/special occasions only Patient Tobacco Use Status: Former Tobacco user Quit Date: age 30 Advance Directives: Yes Advance Directives on File: Yes Advance Directives Date on File: 02/05/22 service: No Current occupational status: retired Physical Exam ED Vital Signs: Vital Signs - 24 hr 06/13/22 11:51 06/13/22 15:25 06/13/22 16:37 Temperature 98.9 F 96.9 F 98.0 F Pulse Rate 80 84 74 Respiratory Rate 18 18 18 Blood Pressure 140/82 H 139/76 157/67 H Pulse Oximetry 92 94 94 Oxygen Delivery Method Room Air Room Air Room Air 06/13/22 17:01 Temperature Pulse Rate Respiratory Rate 18 Blood Pressure Pulse Oximetry Oxygen Delivery Method BMI result Body Mass Index 38.2 Appearance: Alert. Oriented X3. No acute distress. Eyes: Pupils equal, round and reactive to light. ENT: Pharynx normal. Neck: Normal inspection. Neck supple. CVS: Normal heart rate and rhythm. Pulses normal. Respiratory: No respiratory distress. Breath sounds normal. Abdomen: Soft and diffusely tender. Large abdominal hernia. Reducible, no evidence of strangulation. No rebound or rigidity. Skin: Skin warm and dry. Normal skin color. Normal skin turgor. Extremities: No lower extremity edema. Moves all extremities against resistance. Neuro: No motor deficit. No sensory deficit. Cranial nerves 2-12 intact. Course Course Course Narrative: 16:33 76-year-old male with past medical history of prostate cancer, hypertension, CKD, asthma, arthritis, cerebral palsy, with chronic constipation presents for 2 weeks of severe abdominal pain with the suspicion of blockage. Patient has had a history of multiple abdominal surgeries, and feels that his 9/10 pain is consistent with his prior presentation of small-bowel obstruction. Patient has not had any significant BMs over the past few days, feels that his abdomen is distended. He does have cerebral palsy, is pleasant and able to make all of his needs known. He is able to answer all questions appropriately, alert oriented x4, no focal neural deficits, moves all extremities against resistance. At this time patient is complaining of pain. patient has been in the waiting room since 09:00. Labs, vital signs, and CT scan of abdomen and pelvis completed prior to patient's arrival to assigned room. It is noted on CT scan that he has a ventral hernia containing a knuckle of small bowel, questionable for partial small bowel obstruction, constipation, and mild wall thickening of the distal colon questionable for stercoral colitis. [place] text out to Dr. Jorgensen. Magnesium noted to be 1.4, will replete with 2 g IV, will give 1 L of saline, pain management and antiemetic. 16:41 Dr. Panda is at bedside. Plan of care is to admit to Medicine. 17:[address] Mera, plan to admit for partial sbo. Consultations Consultation #1: Jameel Time: 16:35 Consultation #2: Ede Time: 17:00 MDM - Abdominal Pain Differential Diagnosis Differential diagnosis: Likely abdominal pain, acute appendicitis, bowel perforation, constipation, diverticulitis, pancreatitis and small bowel obstruction Medical Records Attestation: I reviewed the patient's medical records. Lab Data Attestation: I reviewed the patient's lab results. Result diagrams: 06/13/22 13:24 06/13/22 13:24 Labs: Lab Results 06/13/22 06/13/22 06/13/22 Range/Units 13:13 13:24 13:24 WBC 10.3 (4.8-10.8) X10*3/uL RBC 4.11 L (4.60-5.80) X10*6/uL Hgb 12.4 L (14.0-18.0) g/dl Hct 37.7 L (42.0-52.0) % MCV 91.7 (80.0-98.0) fL MCH 30.2 (27.0-33.0) pg MCHC 32.9 (31.0-36.0) g/dl RDW 13.8 (11.0-16.0) % Plt Count 432 H D (160-400) X10*3/uL MPV 10.2 (9.4-12.4) fL Immature Gran % (Auto) 2.6 H (0.0-0.4) % Neut % (Auto) 52.1 (45-73) % Lymph % (Auto) 31.7 (20-40) % [place] % (Auto) 9.1 (2-11) % Eos % (Auto) 3.2 (0-4) % Baso % (Auto) 1.3 (0-2) % Lymph # (Auto) 3.3 (1.2-4.9) X10*3/uL [place] # (Auto) 0.9 (0.1-1.2) X10*3/uL Eos # (Auto) 0.3 (0.0-0.4) X10*3/uL Baso # (Auto) 0.1 (0.0-0.2) X10*3/uL Abs Immat Gran (auto) 0.27 H (0.00-0.03) X10*3/uL Absolute Neuts (auto) 5.4 (2.0-8.3) x10*3/uL Absolute Nucleated RBC 0.000 (0.0-0.012) X10*3/uL Nucleated RBC % (auto) 0.0 (0.0-0.2) /100WBC Smear Tech's Comments VERIFIED PT (10.0-13.1) SEC INR (0.9-1.1) Sodium 140 (135-145) mmol/L Potassium 4.0 (3.3-5.1) mmol/L Chloride 103 (96-108) mmol/L Carbon Dioxide 25 (22-29) mmol/L Anion Gap 16 (12-20) BUN 14 D (9-16) mg/dL Creatinine 1.17 (0.5-1.4) mg/dL Estim Creat Clear Calc 59.7 Estimated GFR > 60 Random Glucose 117 H (60-115) mg/dL Calcium 9.4 (8.4-10.2) mg/dL Magnesium 1.4 L* (1.6-2.6) mg/dL Total Bilirubin < 0.2 (0.0-1.0) mg/dL Direct Bilirubin < 0.2 (0.0-0.5) mg/dL AST 19 D (5-37) U/L ALT 20 (0-40) U/L Alkaline Phosphatase 126 H D (39-117) U/L Total Protein 7.3 (6.5-8.0) g/dL Albumin 3.9 (3.5-5.0) g/dL Lipase 34 (8-78) U/L Urine Color Urine Appearance Urine pH (5.0-9.0) Ur Specific [place] (1.005-1.025) Urine Protein (Neg-Trace) mg/dL Urine Glucose (UA) (Negative) mg/dL Urine Ketones (Negative) mg/dL Urine Blood (Negative) Urine Nitrite (Negative) Ur Leukocyte Esterase (Negative) Urine RBC (0-2) /HPF Urine WBC (0-5) /HPF Ur Squamous Epith Cells (0-2) /HPF Urine Bacteria (None Seen) Hyaline Casts (0-2) /LPF COVID-19 ([facility]) Negative (Negative) COVID-19 Clin Com See Note 06/13/22 06/13/22 Range/Units 13:24 13:29 WBC (4.8-10.8) X10*3/uL RBC (4.60-5.80) X10*6/uL Hgb (14.0-18.0) g/dl Hct (42.0-52.0) % MCV (80.0-98.0) fL MCH (27.0-33.0) pg MCHC (31.0-36.0) g/dl RDW (11.0-16.0) % Plt Count (160-400) X10*3/uL MPV (9.4-12.4) fL Immature Gran % (Auto) (0.0-0.4) % Neut % (Auto) (45-73) % Lymph % (Auto) (20-40) % [place] % (Auto) (2-11) % Eos % (Auto) (0-4) % Baso % (Auto) (0-2) % Lymph # (Auto) (1.2-4.9) X10*3/uL [place] # (Auto) (0.1-1.2) X10*3/uL Eos # (Auto) (0.0-0.4) X10*3/uL Baso # (Auto) (0.0-0.2) X10*3/uL Abs Immat Gran (auto) (0.00-0.03) X10*3/uL Absolute Neuts (auto) (2.0-8.3) x10*3/uL Absolute Nucleated RBC (0.0-0.012) X10*3/uL Nucleated RBC % (auto) (0.0-0.2) /100WBC Smear Tech's Comments PT 11.2 (10.0-13.1) SEC INR 1.0 (0.9-1.1) Sodium (135-145) mmol/L Potassium (3.3-5.1) mmol/L Chloride (96-108) mmol/L Carbon Dioxide (22-29) mmol/L Anion Gap (12-20) BUN (9-16) mg/dL Creatinine (0.5-1.4) mg/dL Estim Creat Clear Calc Estimated GFR Random Glucose (60-115) mg/dL Calcium (8.4-10.2) mg/dL Magnesium (1.6-2.6) mg/dL Total Bilirubin (0.0-1.0) mg/dL Direct Bilirubin (0.0-0.5) mg/dL AST (5-37) U/L ALT (0-40) U/L Alkaline Phosphatase (39-117) U/L Total Protein (6.5-8.0) g/dL Albumin (3.5-5.0) g/dL Lipase (8-78) U/L Urine Color Yellow Urine Appearance Clear Urine pH 5.5 (5.0-9.0) Ur Specific [place] 1.020 (1.005-1.025) Urine Protein >=1000 (4+) H (Neg-Trace) mg/dL Urine Glucose (UA) 100 H (Negative) mg/dL Urine Ketones Negative (Negative) mg/dL Urine Blood Negative (Negative) Urine Nitrite Negative (Negative) Ur Leukocyte Esterase Negative (Negative) Urine RBC 0-2 (0-2) /HPF Urine WBC 0-5 (0-5) /HPF Ur Squamous Epith Cells 0-2 (0-2) /HPF Urine Bacteria Trace (None Seen) Hyaline Casts 0-2 (0-2) /LPF COVID-19 ([facility]) (Negative) COVID-19 Clin Com Imaging Data CT scan - abdomen: Attestation: I personally reviewed and interpreted this imaging study as follows: Radiologist's impression: FINDINGS: LUNG BASES: The visualized lung bases are unremarkable.? LIVER, GALLBLADDER, AND BILIARY TREE: The liver has a lobular contour. The left lobe and caudate lobe are prominent. Findings are suggestive of mild cirrhosis. No focal liver lesion is seen. The gallbladder is normal. PANCREAS: Unremarkable.? SPLEEN: Unremarkable.? ADRENAL GLANDS: Unremarkable.? KIDNEYS AND URETERS: There are bilateral renal cysts. These are stable. No imaging follow-up.? BLADDER: Unremarkable.? GASTROINTESTINAL TRACT: There is a ventral hernia. There is a loop of small bowel that extends into the hernia. This is at the level of the small bowel anastomosis with surgical suture line. There is slight caliber change in this region questionable for partial small bowel obstruction. There is stool throughout the colon suggestive of constipation. There is wall thickening of the distal colon questionable for mild stercoral colitis related to chronic constipation. The appendix is normal. ABDOMINAL WALL: See above. LYMPH NODES: Normal. VASCULAR: Unremarkable. PELVIC VISCERA: Unremarkable.? OSSEOUS STRUCTURES: There are bilateral hip replacements. There are degenerative changes of the spine. There are multiple sclerotic densities in the left iliac bone that are stable. CT/CT abdomen pelvis wo IV con IMPRESSION: Ventral hernia containing knuckle of small bowel. There is a caliber change of the small bowel in this region questionable for partial small bowel obstruction. Constipation. Mild wall thickening of the distal colon questionable for stercoral colitis. Bilateral renal cysts. Mild cirrhotic changes of the liver. ? Fleischner guidelines were followed. Discharge Plan Discharge Clinical Impression: Abdominal pain, Small bowel obstruction, Constipation, Hypomagnesemia Patient Disposition: Admitted As Inpatient
[2022-06-13 16:37] VITALS: BP 157/67; PULSE 74; RESP 18; TEMP 36.7; O2SAT 94
--- NOTE | 2022-06-13 16:41 | ECG_ITS ---
Test Reason : abdominal pain Blood Pressure : / mmHG Vent. Rate : 085 BPM Atrial Rate : 085 BPM P-R Int : 154 ms QRS Dur : 088 ms QT Int : 398 ms P-R-T Axes : 059 022 012 degrees QTc Int : 473 ms Normal sinus rhythm Nonspecific ST and T wave abnormality Abnormal ECG No previous ECGs available Referred By: Ирина Saavedra Electronically Signed By:ZEUS ERIC MD
[2022-06-13] MEDS: Magnesium Sulfate/H2O 2 GM/50 ML PIGGYBACK IV (17:00)
[2022-06-13 17:01] VITALS: RESP 18
[2022-06-13] MEDS: ondansetron HCL 4 MG/2 ML VIAL IVPUSH (17:01)
[2022-06-13] MEDS: Morphine Sulfate 4 MG/ML CARTRIDGE IVPUSH ×2 (17:01→19:31)
--- NOTE | 2022-06-13 17:01 | P.CONGS_ITS ---
History of Present Illness Consult details Consult date: 06/13/22 Narrative: 76-year-old male here in the ER for abdominal pain. He actually says he has had this for several months . He says that he came to the ER because of the persistence of his pain for over the past few months. He denies any vomiting. He admits to chronic constipation. He has had multiple abdominal surgeries as well He was admitted to the hospital last September 2021 for question of partial small-bowel obstruction. He had presented with with abdominal pain at that time as well. He says he had a bowel movement this morning and is passing flatus. He denies any nausea. Review of Systems Constitutional: Constitutional: Denies chills and Denies fever(s) Cardiovascular: Cardiovascular: Denies chest pain, Denies dyspnea and Denies dyspnea on exertion Respiratory: Respiratory: Denies cough, Denies dyspnea and Denies dyspnea on exertion Gastrointestinal: Gastrointestinal: Denies hematochezia, Denies change in bowel habits and Reports constipation Genitourinary: Genitourinary: Denies hematuria and Denies difficulty urinating Musculoskeletal: Musculoskeletal: Denies back pain and Denies limited range of motion Neurologic: Denies focal weakness and Denies convulsions Psychiatric: Psychiatric: Denies depression and Denies mood swings PMFSH Past Medical History Medical History Abdominal pain Abdominal wall hernia Arthritis Asthma Cerebral palsy CHF (congestive heart failure) CKD (chronic kidney disease) Constipation Cricopharyngeal hypertrophy History of small bowel obstruction Hypertension Neoplasm of prostate Oropharyngeal dysphagia Family History Family History Other No family history of coronary artery disease Surgical History Surgical History H/O abdominal surgery History of esophagogastroduodenoscopy (EGD) Social History Social History 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: 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 Housing: Correction Housing Other:: [place] Do you presently have visiting nurse or other home services: No Alcohol intake: never Patient Tobacco Use Status: Former Tobacco user Quit Date: age 30 Advance Directives Date on File: 02/05/22 service: No Current occupational status: retired Meds Allergies Allergy/AdvReac Type Severity Reaction Status Date / Time No Known Allergies Allergy Verified 06/13/22 10:25 Active Medications: Current Medications Magnesium Sulfate (Magnesium Sulfate/H2o) 2 gm in 50 mls @ 25 mls/hr IV ONCE ONE Stop: 06/13/22 18:40 Home Medications Medication Instructions Recorded Confirmed Last Taken Type albuterol sulfate 90 mcg/actuation 2 puff inhalation Q4H PRN 10/12/21 06/13/22 02/05/22 History aerosol inhaler Shortness Of Breath allopurinol 300 mg tablet 1 tab PO DAILY 10/12/21 06/13/22 02/05/22 History cholecalciferol (vitamin D3) 25 25 mcg PO BID 10/12/21 06/13/22 02/05/22 History mcg (1,000 unit) tablet diltiazem HCl 120 mg 1 cap PO DAILY 10/12/21 06/13/22 02/05/22 History capsule,extended release 24 hr doxazosin 4 mg tablet 1 tab PO DAILY 10/12/21 06/13/22 02/05/22 History gabapentin 100 mg capsule 1 cap PO TID 10/12/21 06/13/22 02/05/22 History metoprolol tartrate 50 mg tablet 1 tab PO BID 10/12/21 06/13/22 02/05/22 History multivitamin 1 tab PO DAILY 10/12/21 06/13/22 02/05/22 History pravastatin 10 mg tablet 1 tab PO BEDTIME 10/12/21 06/13/22 02/05/22 History sennosides 8.6 mg tablet (Senna 17.2 mg PO BEDTIME 10/12/21 06/13/22 02/05/22 History Laxative) tizanidine 2 mg tablet 1 tab PO BEDTIME 10/12/21 06/13/22 02/05/22 History acetaminophen 325 mg capsule 650 mg PO Q4H PRN MILD PAIN/TEMP 06/13/22 06/13/22 Unknown History aluminum-mag hydroxide-simethicone 20 ml PO Q8H PRN GERD 06/13/22 06/13/22 Unknown History 200 mg-200 mg-20 mg/5 mL oral susp (Carmella-Lanta) bisacodyl 10 mg rectal suppository 10 mg [place] DAILY PRN Constipation 06/13/22 06/13/22 Unknown History escitalopram oxalate 10 mg tablet 10 mg PO DAILY 06/13/22 06/13/22 Unknown History hydrocortisone 1 % topical cream 1 appl topical Q6H PRN ANAL 06/13/22 06/13/22 Unknown History (Preparation H Hydrocortisone) DISCOMFORT/ITCH/BURN naldemedine 0.2 mg tablet 0.2 mg PO DAILY 06/13/22 06/13/22 Unknown History (Symproic) omeprazole 20 mg capsule,delayed 20 mg PO DAILY 06/13/22 06/13/22 Unknown History release oxycodone 5 mg tablet 5 mg PO Q8H PRN Pain (Scale Score 06/13/22 06/13/22 Unknown History 7-10) polyethylene glycol 3350 17 gram 17 g PO DAILY 06/13/22 06/13/22 Unknown History oral powder packet (Miralax) polyethylene glycol 3350 17 gram 17 g PO DAILY PRN Constipation 06/13/22 06/13/22 Unknown History oral powder packet (Miralax) polyvinyl alcohol 1.4 % eye drops 2 drp ophthalmic (eye) BID 06/13/22 06/13/22 Unknown History (Artificial Tears (polyvinyl alcohol)) sennosides 8.6 mg tablet (senna) 8.6 mg PO DAILY PRN Constipation 06/13/22 06/13/22 Unknown History sennosides 8.6 mg-docusate sodium 2 tab-cap PO BID 06/13/22 06/13/22 Unknown History 50 mg tablet (Senna Plus) trazodone 50 mg tablet 50 mg PO BID 06/13/22 06/13/22 Unknown History Physical Exam Vital Signs: Vital Signs: Last Vital Signs Temp 98.0 F 06/13/22 16:37 Pulse 74 06/13/22 16:37 Resp 18 06/13/22 16:37 BP 157/67 H 06/13/22 16:37 Pulse Ox 94 06/13/22 16:37 O2 Del Method 06/13/22 16:37 BMI result Body Mass Index 38.2 Const: General: comfortable and no acute distress Orientation/consciousness: patient oriented x3 Neck: Neck: Yes no lymphadenopathy Resp: Auscultation: clear to auscultation bilaterally Cardio: Rhythm: regular rhythm GI: Other: Soft, nondistended, no guarding on rebound, palpable hernia on the upper abdomen along on all incision, reducible, mild diffuse tenderness Palpation (GI): Soft to palpation, nontender and no guarding Neuro: General: patient oriented x3 Results Labs Result diagrams: 06/15/22 05:45 06/15/22 05:45 Labs: Abnormal lab results 06/13/22 06/13/22 06/13/22 Range/Units 13:24 13:24 13:29 RBC 4.11 L (4.60-5.80) X10*6/uL Hgb 12.4 L (14.0-18.0) g/dl Hct 37.7 L (42.0-52.0) % Plt Count 432 H D (160-400) X10*3/uL Immature Gran % (Auto) 2.6 H (0.0-0.4) % Abs Immat Gran (auto) 0.27 H (0.00-0.03) X10*3/uL Random Glucose 117 H (60-115) mg/dL Magnesium 1.4 L* (1.6-2.6) mg/dL Alkaline Phosphatase 126 H D (39-117) U/L Urine Protein >=1000 (4+) H (Neg-Trace) mg/dL Urine Glucose (UA) 100 H (Negative) mg/dL Short CBC 06/13/22 Range/Units 13:24 WBC 10.3 (4.8-10.8) X10*3/uL Hgb 12.4 L (14.0-18.0) g/dl Hct 37.7 L (42.0-52.0) % Plt Count 432 H D (160-400) X10*3/uL BMP 06/13/22 13:24 Sodium 140 Potassium 4.0 Chloride 103 Carbon Dioxide 25 BUN 14 D Creatinine 1.17 Calcium 9.4 Liver Function 06/13/22 Range/Units 13:24 Total Bilirubin < 0.2 (0.0-1.0) mg/dL Direct Bilirubin < 0.2 (0.0-0.5) mg/dL AST 19 D (5-37) U/L ALT 20 (0-40) U/L Alkaline Phosphatase 126 H D (39-117) U/L Albumin 3.9 (3.5-5.0) g/dL Urine 06/13/22 Range/Units 13:29 Urine Color Yellow Urine Appearance Clear Urine pH 5.5 (5.0-9.0) Ur Specific [place] 1.020 (1.005-1.025) Urine Protein >=1000 (4+) H (Neg-Trace) mg/dL Urine Glucose (UA) 100 H (Negative) mg/dL All other labs normal. Assessment and Plan (1) Abdominal pain: Status: Acute His CAT scan shows hernia the upper abdomen with note of bowel going through this hernia. Review of his old records also show a similar picture last September,. His hernia is easily reducible and does not seem to be causing any obstruction clinically. He denies any vomiting. His abdominal exam is very benign and his tenderness is more views. He also has chronically constipated and has moderate fecal load distal: He does not require any urgent surgical intervention at this time. Clinically, he is not obstructed and I would not put in an NG tube . He is chronically constipated so I will get him some stool softeners or even an enema. He is being admitted to the medical service in views multiple medical issues. I will follow along while he is in the hospital. Procedures Date of Service Date of Service: 06/13/22
--- NOTE | 2022-06-13 17:47 | P.HPHOSP_ITS ---
History of Present Illness Date of Service: 06/13/22 Chief Complaint: abd pain 76-year-old male with past medical history of asthma, CHF, cerebral palsy wheelchair-bound, CKD, chronic constipation, history of small-bowel obstruction, HTN, prostate cancer, oropharyngeal dysphagia, presents to the hospital with complaints of abdominal pain nausea and vomiting. Patient reports that his symptoms started about a week ago, associated with diffuse abdominal pain, 5/10, nonradiating. Patient also reports that he has history of prostate cancer and he reports that he also has pain in the suprapubic region. He denies any fever, no chills, no shortness of breath, no chest pain, he tells me that he is not sure about his bowel movements sometimes are soft sometimes her heart, his last bowel movement was yesterday, and he says that it was soft. He denies any new weakness numbness or tingling. On arrival to the ED patient hemodynamically stable with an elevated blood pressure otherwise no acute abnormality Labs are significant for WBC count of 10.3, hemoglobin 12.4, hematocrit of 37.7, magnesium 1.4, labs otherwise unremarkable UA negative for any acute infection, COVID-[address] shows ventral hernia containing knuckles of small bowel, there is a caliber change of the small bowel in this region questionable for partial small-bowel obstruction, constipation. Mild wall thickening of the distal colon questionable for steroid Coral colitis. Bilateral renal cysts, mild cirrhotic c hanges of the liver Patient was evaluated by surgery, this time not a surgical candidate, he will be admitted for further management. Review of Systems Review of Systems: Yes all other systems are reviewed and are negative [facility] Medical History Abdominal pain Abdominal wall hernia Arthritis Asthma Cerebral palsy CHF (congestive heart failure) CKD (chronic kidney disease) Constipation Cricopharyngeal hypertrophy History of small bowel obstruction Hypertension Neoplasm of prostate Oropharyngeal dysphagia Family History Other No family history of coronary artery disease Surgical History H/O abdominal surgery History of esophagogastroduodenoscopy (EGD) Social History 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: Other Housing: [place] Do you presently have visiting nurse or other home services: No Alcohol intake: current Alcohol intake frequency: holidays/special occasions only Patient Tobacco Use Status: Former Tobacco user Quit Date: age 30 Advance Directives: Yes Advance Directives on File: Yes Advance Directives Date on File: 02/05/22 service: No Current occupational status: retired Meds Allergies Allergy/AdvReac Type Severity Reaction Status Date / Time No Known Allergies Allergy Verified 06/13/22 10:25 Active Medications: Current Medications Magnesium Sulfate (Magnesium Sulfate/H2o) 2 gm in 50 mls @ 25 mls/hr IV ONCE ONE Stop: 06/13/22 18:40 Last Admin: 06/13/22 17:00 Dose: 25 mls/hr Pharmacy Consult (Consult Rx Perform Med Rec) 1 each MISCELLANE ONCE STA Stop: 06/13/22 17:16 Home Medications Medication Instructions Recorded Confirmed Last Taken Type albuterol sulfate 90 mcg/actuation 2 puff inhalation Q4H PRN Wheezing 10/12/21 06/13/22 02/05/22 History aerosol inhaler allopurinol 300 mg tablet 1 tab PO DAILY 10/12/21 06/13/22 02/05/22 History cholecalciferol (vitamin D3) 25 25 mcg PO BID 10/12/21 06/13/22 02/05/22 History mcg (1,000 unit) tablet diltiazem HCl 120 mg 1 cap PO DAILY 10/12/21 06/13/22 02/05/22 History capsule,extended release 24 hr docusate sodium 100 mg capsule 100 mg PO TID PRN Constipation 10/12/21 06/13/22 02/05/22 History doxazosin 4 mg tablet 1 tab PO DAILY 10/12/21 06/13/22 02/05/22 History gabapentin 100 mg capsule 1 cap PO DAILY 10/12/21 06/13/22 02/05/22 History heparin (porcine) 5,000 unit/mL 5,000 unit subcut Q12H 10/12/21 06/13/22 Unknown History injection solution lidocaine 5 % topical cream 1 appl topical QID PRN Hemorrhoids 10/12/21 06/13/22 02/05/22 History (Hemorrhoidal Relief) metoprolol tartrate 50 mg tablet 1 tab PO BID 10/12/21 06/13/22 02/05/22 History multivitamin 1 tab PO DAILY 10/12/21 06/13/22 02/05/22 History naloxegol 25 mg tablet (Movantik) 1 tab PO DAILY 10/12/21 06/13/22 02/05/22 History oxycodone 5 mg tablet 5 mg PO Q12H PRN pain 10/12/21 06/13/22 02/05/22 History pravastatin 10 mg tablet 1 tab PO BEDTIME 10/12/21 06/13/22 02/05/22 History sennosides 8.6 mg tablet (Senna 17.2 mg PO DAILY 10/12/21 06/13/22 02/05/22 History Laxative) tizanidine 2 mg tablet 1 tab PO BEDTIME 10/12/21 06/13/22 02/05/22 History trazodone 50 mg tablet 25 mg PO BID PRN Anxiety 10/12/21 06/13/22 02/05/22 History acetaminophen 325 mg capsule 650 mg PO Q6H PRN MILD PAIN/TEMP 06/13/22 06/13/22 Unknown History aluminum-mag hydroxide-simethicone 20 ml PO Q8H PRN GERD 06/13/22 06/13/22 Unknown History 200 mg-200 mg-20 mg/5 mL oral susp (Carmella-Lanta) bisacodyl 10 mg rectal suppository 10 mg [place] DAILY PRN Constipation 06/13/22 06/13/22 Unknown History escitalopram oxalate 10 mg tablet 10 mg PO DAILY 06/13/22 06/13/22 Unknown History hydrocortisone 1 % topical cream 1 appl topical Q6H PRN ANAL 06/13/22 06/13/22 Unknown History (Preparation H Hydrocortisone) DISCOMFORT/ITCH/BURN naldemedine 0.2 mg tablet 0.2 mg PO DAILY 06/13/22 06/13/22 Unknown History (Symproic) polyethylene glycol 3350 17 gram 17 g PO DAILY PRN Constipation 06/13/22 06/13/22 Unknown History oral powder packet (Miralax) polyvinyl alcohol 1.4 % eye drops 2 drp ophthalmic (eye) BID 06/13/22 06/13/22 Unknown History (Artificial Tears (polyvinyl alcohol)) sennosides 8.6 mg tablet (senna) 8.6 mg PO DAILY PRN Constipation 06/13/22 06/13/22 Unknown History sennosides 8.6 mg-docusate sodium 2 tab-cap PO BID 06/13/22 06/13/22 Unknown History 50 mg tablet (Senna Plus) trazodone 50 mg tablet 50 mg PO BID 06/13/22 06/13/22 Unknown History Physical Exam Vital Signs and Narrative: Vital Signs: Last Vital Signs Temp 98.0 F 06/13/22 16:37 Pulse 74 06/13/22 16:37 Resp 18 06/13/22 17:01 BP 157/67 H 06/13/22 16:37 Pulse Ox 94 06/13/22 16:37 O2 Del Method 06/13/22 16:37 BMI result Body Mass Index 38.2 Const: General: cooperative and no acute distress Orientation/consciousness: patient oriented x3 Eyes: General: appearance normal, both eyes and all related structures Resp: Effort & Inspection: normal respiratory effort Auscultation: clear to auscultation bilaterally Cardio: Rate: regular rate Rhythm: regular rhythm GI: Other: Obese abdomen, tender in the left mid abdomen, left lower quadrant. Some guarding, no rebound. There is a reducible hernia on the left abdominal region Palpation (GI): Soft to palpation Skin: General skin exam: no rashes or lesions noted Neuro: General: patient oriented x3 Cognition (Neuro): normal cognition Extrem: General: Yes normal to inspection and Yes no pedal edema Results Labs CBC and Chem 7: 06/13/22 13:24 06/13/22 13:24 Labs: Laboratory Results - last 24 hr 06/13/22 06/13/22 06/13/22 13:13 13:24 13:24 MCV 91.7 MCH 30.2 MCHC 32.9 RDW 13.8 Plt Count 432 H D MPV 10.2 Immature Gran % (Auto) 2.6 H Neut % (Auto) 52.1 Lymph % (Auto) 31.7 [place] % (Auto) 9.1 Eos % (Auto) 3.2 Baso % (Auto) 1.3 Lymph # (Auto) 3.3 [place] # (Auto) 0.9 Eos # (Auto) 0.3 Baso # (Auto) 0.1 Abs Immat Gran (auto) 0.27 H Absolute Neuts (auto) 5.4 Absolute Nucleated RBC 0.000 Nucleated RBC % (auto) 0.0 Smear Tech's Comments VERIFIED PT INR Anion Gap 16 Estim Creat Clear Calc 59.7 Estimated GFR > 60 Random Glucose 117 H Calcium 9.4 Magnesium 1.4 L* Total Bilirubin < 0.2 Direct Bilirubin < 0.2 AST 19 D ALT 20 Alkaline Phosphatase 126 H D Total Protein 7.3 Albumin 3.9 Lipase 34 Urine Color Urine Appearance Urine pH Ur Specific [place] Urine Protein Urine Glucose (UA) Urine Ketones Urine Blood Urine Nitrite Ur Leukocyte Esterase Urine RBC Urine WBC Ur Squamous Epith Cells Urine Bacteria Hyaline Casts COVID-19 ([place]) Negative COVID-19 Clin Com See Note 06/13/22 06/13/22 13:24 13:29 MCV MCH MCHC RDW Plt Count MPV Immature Gran % (Auto) Neut % (Auto) Lymph % (Auto) [place] % (Auto) Eos % (Auto) Baso % (Auto) Lymph # (Auto) [place] # (Auto) Eos # (Auto) Baso # (Auto) Abs Immat Gran (auto) Absolute Neuts (auto) Absolute Nucleated RBC Nucleated RBC % (auto) Smear Tech's Comments PT 11.2 INR 1.0 Anion Gap Estim Creat Clear Calc Estimated GFR Random Glucose Calcium Magnesium Total Bilirubin Direct Bilirubin AST ALT Alkaline Phosphatase Total Protein Albumin Lipase Urine Color Yellow Urine Appearance Clear Urine pH 5.5 Ur Specific [place] 1.020 Urine Protein >=1000 (4+) H Urine Glucose (UA) 100 H Urine Ketones Negative Urine Blood Negative Urine Nitrite Negative Ur Leukocyte Esterase Negative Urine RBC 0-2 Urine WBC 0-5 Ur Squamous Epith Cells 0-2 Urine Bacteria Trace Hyaline Casts 0-2 COVID-19 ([place]) COVID-19 Clin Com Imaging Radiologist's Impressions: Impressions Abdomen/Pelvis CT 06/13/22 12:15 IMPRESSION: Ventral hernia containing knuckle of small bowel. There is a caliber change of the small bowel in this region questionable for partial small bowel obstruction. Constipation. Mild wall thickening of the distal colon questionable for stercoral colitis. Bilateral renal cysts. Mild cirrhotic changes of the liver. Fleischner guidelines were followed. Assessment and Plan (1) Small bowel obstruction: Status: Acute (2) Constipation: Status: Acute (3) Hypomagnesemia: Status: Acute (4) Abdominal pain: Status: Acute Plan 76-year-old male with past medical history of cerebral palsy wheelchair-bound, presents to the hospital with complaints of abdominal timeline found to have acute Small-bowel obstruction # acute small-bowel obstruction - with a history of small-bowel obstruction, in the setting of ventral wall hernia -no evidence of strangulation - will treat with IV fluids, - NPO - surgery evaluated patient, no indication for NG tube at this time nor media surgery, they will follow patient in a.m. # constipation - given enema in ed - at this time will give bowel rest - once small bowel obstruction resolves, can place on bowel regimen # Hypomag - repleted -follow mag level # HTN - stable - continue antihypertensive DVT ppx: heparin subq Pt will require a minimum 2 night hospital stay for small-bowel obstruction Quality Stroke Does the patient have a stroke diagnosis?: No VTE Prior VTE?: No VTE Risk Level:: Medical - moderate - high VTE Device Contraindication: Treatment Not Indicated VTE Drug Contraindication: N/A - Med Ordered
[2022-06-13] MEDS: Lactated Ringers 1,000 ML 100 ML IVCONT (18:44)
[2022-06-13] MEDS: Heparin Sodium,Porcine 5,000 UNIT/ML VIAL 5000 UNIT SUBCUT (18:48)
--- NOTE | 2022-06-13 18:49 | PHA.MEDREC ---
MED REC COMPLETE, NO ISSUES Pharmacy Consult ? Medication Reconciliation Pharmacy has completed the medication reconciliation.
--- NOTE | 2022-06-13 18:53 | PC.NURSE ---
SSE completed and pt able to void a moderate amount of soft brown stool and a large amount of liquid noted. Per PA she would like another SSE done as he is severely constipated.
[2022-06-13 19:31] VITALS: RESP 18
[2022-06-13 20:08] VITALS: BP 151/79; PULSE 86; RESP 16; TEMP 36.6; O2SAT 95
--- NOTE | 2022-06-13 20:35 | PC.NURSE ---
pt moved to overflo 6, pt extremly [facility] [place] and had tv very loud to hear causing other patients to complain about the volume.
[2022-06-13] MEDS: Acetaminophen 325 MG TABLET 650 MG PO (22:34)
--- NOTE | 2022-06-13 22:37 | PC.NURSE ---
patient a&ox3, ivf running per order, pt medicated with tylenol for generalized body pain 04/27, call sanders within reach, will continue to monitor
[2022-06-14] MEDS: 0.9 % Sodium Chloride Flush 3 ML SYRINGE IVFLUSH ×3 (00:04→22:06)
[2022-06-14 00:07] VITALS: RESP 16
[2022-06-14] MEDS: Morphine Sulfate 4 MG/ML CARTRIDGE IVPUSH ×5 (00:07→22:03)
--- NOTE | 2022-06-14 03:22 | PC.NURSE ---
PT A+O, VSS, IV running, call sanders within reach, PT medicated for generalized pain as needed.
[2022-06-14] MEDS: Lactated Ringers 1,000 ML 100 ML IVCONT ×3 (03:50→22:01)
[2022-06-14 04:36] VITALS: BP 172/79; PULSE 68; RESP 16; TEMP 37.1; O2SAT 95
--- NOTE | 2022-06-14 04:49 | PC.NURSE ---
PT HR 68, BP 172/79, PT asymptomatic, MD Valenzuela notified, no new orders.
[2022-06-14] MEDS: Heparin Sodium,Porcine 5,000 UNIT/ML VIAL 5000 UNIT SUBCUT ×2 (05:06→16:57)
[2022-06-14 06:30] VITALS: BMI 38.4
[2022-06-14 06:33] LABS: MANUAL DIFF FLAG NO
[2022-06-14 06:40] LABS: Basophils Absolute Auto 0.1 X10*3/uL (0.0-0.2); Basophils Percent Auto 1.3 % (0-2); Eosinophils Absolute Auto 0.4 X10*3/uL (0.0-0.4); Eosinophils Percent Auto 4.1 % (0-4); Hematocrit 33.7 % (42.0-52.0); Hemoglobin 11.1 g/dl (14.0-18.0); Imm Gran Abs Auto 0.23 X10*3/uL (0.00-0.03); Imm Gran Pct Auto 2.7 % (0.0-0.4); Lymphocytes Absolute Auto 3.3 X10*3/uL (1.2-4.9); Lymphocytes Percent Auto 38.6 % (20-40); Mean Corpuscular HGB Conc 32.9 g/dl (31.0-36.0); Mean Corpuscular Hemoglobin 30.8 pg (27.0-33.0); Mean Corpuscular Volume 93.6 fL (80.0-98.0); Mean Platelet Volume 10.2 fL (9.4-12.4); Monocytes Absolute Auto 0.9 X10*3/uL (0.1-1.2); Monocytes Percent Auto 9.9 % (2-11); Neutrophils Absolute Auto 3.8 x10*3/uL (2.0-8.3); Neutrophils Percent Auto 43.4 % (45-73); Platelet Count 376 X10*3/uL (160-400); Red Cell Distribution Width 13.9 % (11.0-16.0); White Blood Count 8.6 X10*3/uL (4.8-10.8)
[2022-06-14 07:12] LABS: Anion Gap 18 (12-20); Blood Urea Nitrogen 12 mg/dL (9-16); Calcium 8.9 mg/dL (8.4-10.2); Carbon Dioxide 23 mmol/L (22-29); Chloride 104 mmol/L (96-108); Creatinine Clr Calc Pharmacy 59.8; Estimated Glomerular Filt Rate > 60; Glucose Random 128 mg/dL (60-115); Sodium 141 mmol/L (135-145)
[2022-06-14 07:46] VITALS: BP 169/74; PULSE 79; RESP 16; TEMP 36.5; O2SAT 92
[2022-06-14 11:21] VITALS: BP 156/73; PULSE 89; RESP 16; TEMP 36.8; O2SAT 92
--- NOTE | 2022-06-14 12:18 | HO.PM.IMPN ---
Subjective Subjective Date of Service: 06/14/22 Interval History: seen and examined this AM having some abdominal soreness but denies nausea/vomiting had bm after enema yesterday, not sure since; unsure if passing flatus Review of Systems negative except HPI Physical Exam Vital Signs: Vital Signs: Last Vital Signs Temp 98.2 F 06/14/22 11:21 Pulse 89 06/14/22 11:21 Resp 16 06/14/22 11:21 BP 156/73 H 06/14/22 11:21 Pulse Ox 92 06/14/22 11:21 O2 Del Method 06/14/22 11:21 BMI result Body Mass Index 38.4 Const: Other: General - no acute distress, appears comfortable Cardiovascular - regular rate and rhythm, S1-S2 Lungs - normal respiratory effort, clear to auscultation bilaterally, no wheezing Abdomen - distended and soft, but some mid abdominal tenderness, hernia reducible Extremities - no edema bilaterally Neuro - awake and alert, no focal deficits Objective Data Active Medications Acetaminophen (Acetaminophen 325 Mg Tablet) 650 mg PO Q6H PRN PRN Reason: Pain, Mild (Pain Scale 1-3) Last Admin: 06/13/22 22:34 Dose: 650 mg Documented By: PERI Heparin Sodium (Porcine) (Heparin Sodium,Porcine 5,000 Unit/Ml Vial) 5,000 unit SUBCUT Q12H [facility] [place] Last Admin: 06/14/22 05:06 Dose: 5,000 unit Documented By: SHALA Lactated Ringer's (Lr) 1,000 mls @ 100 mls/hr IVCONT .Q10H [facility] [place] Last Admin: 06/14/22 03:50 Dose: 100 mls/hr Documented By: SHALA Morphine Sulfate (Morphine Sulfate 4 Mg/Ml Cartridge) 4 mg IVPUSH Q4H PRN; Protocol PRN Reason: Pain, Severe (Pain Scale 7-10) Last Admin: 06/14/22 09:20 Dose: 4 mg Documented By: ZACARIAS Ondansetron HCl (Ondansetron Hcl 4 Mg/2 Ml Vial) 4 mg IVPUSH Q8H PRN PRN Reason: Nausea and Vomiting Sodium Chloride (0.9 % Sodium Chloride Flush 3 Ml Syringe) 3 ml IVFLUSH QSHIFT [facility] [place] Last Admin: 06/14/22 07:30 Dose: 3 ml Documented By: ZACARIAS Labs CBC & Chem 7: 06/14/22 05:43 06/14/22 05:43 Labs: Laboratory Results - last 24 hr 06/13/22 06/13/22 06/13/22 13:13 13:24 13:24 MCV 91.7 MCH 30.2 MCHC 32.9 RDW 13.8 Plt Count 432 H D MPV 10.2 Immature Gran % (Auto) 2.6 H Neut % (Auto) 52.1 Lymph % (Auto) 31.7 [place] % (Auto) 9.1 Eos % (Auto) 3.2 Baso % (Auto) 1.3 Lymph # (Auto) 3.3 [place] # (Auto) 0.9 Eos # (Auto) 0.3 Baso # (Auto) 0.1 Abs Immat Gran (auto) 0.27 H Absolute Neuts (auto) 5.4 Absolute Nucleated RBC 0.000 Nucleated RBC % (auto) 0.0 Smear Tech's Comments VERIFIED PT INR Anion Gap 16 Estim Creat Clear Calc 59.7 Estimated GFR > 60 Random Glucose 117 H Calcium 9.4 Magnesium 1.4 L* Total Bilirubin < 0.2 Direct Bilirubin < 0.2 AST 19 D ALT 20 Alkaline Phosphatase 126 H D Total Protein 7.3 Albumin 3.9 Lipase 34 Urine Color Urine Appearance Urine pH Ur Specific [place] Urine Protein Urine Glucose (UA) Urine Ketones Urine Blood Urine Nitrite Ur Leukocyte Esterase Urine RBC Urine WBC Ur Squamous Epith Cells Urine Bacteria Hyaline Casts COVID-19 ([facility]) Negative COVID-19 Clin Com See Note 06/13/22 06/13/22 06/14/22 13:24 13:29 05:43 MCV 93.6 MCH 30.8 MCHC 32.9 RDW 13.9 Plt Count 376 MPV 10.2 Immature Gran % (Auto) 2.7 H Neut % (Auto) 43.4 L Lymph % (Auto) 38.6 Emm[place] % (Auto) 9.9 Eos % (Auto) 4.1 H Baso % (Auto) 1.3 Lymph # (Auto) 3.3 Emm[place] # (Auto) 0.9 Eos # (Auto) 0.4 Baso # (Auto) 0.1 Abs Immat Gran (auto) 0.23 H Absolute Neuts (auto) 3.8 Absolute Nucleated RBC 0.000 Nucleated RBC % (auto) 0.0 Smear Tech's Comments PT 11.2 INR 1.0 Anion Gap Estim Creat Clear Calc Estimated GFR Random Glucose Calcium Magnesium Total Bilirubin Direct Bilirubin AST ALT Alkaline Phosphatase Total Protein Albumin Lipase Urine Color Yellow Urine Appearance Clear Urine pH 5.5 Ur Specific [place] 1.020 Urine Protein >=1000 (4+) H Urine Glucose (UA) 100 H Urine Ketones Negative Urine Blood Negative Urine Nitrite Negative Ur Leukocyte Esterase Negative Urine RBC 0-2 Urine WBC 0-5 Ur Squamous Epith Cells 0-2 Urine Bacteria Trace Hyaline Casts 0-2 COVID-19 ([facility]) COVID-19 Clin Com 06/14/22 05:43 MCV MCH MCHC RDW Plt Count MPV Immature Gran % (Auto) Neut % (Auto) Lymph % (Auto) Emm[place] % (Auto) Eos % (Auto) Baso % (Auto) Lymph # (Auto) Emm[place] # (Auto) Eos # (Auto) Baso # (Auto) Abs Immat Gran (auto) Absolute Neuts (auto) Absolute Nucleated RBC Nucleated RBC % (auto) Smear Tech's Comments PT INR Anion Gap 18 Estim Creat Clear Calc 59.8 Estimated GFR > 60 Random Glucose 128 H Calcium 8.9 Magnesium Total Bilirubin Direct Bilirubin AST ALT Alkaline Phosphatase Total Protein Albumin Lipase Urine Color Urine Appearance Urine pH Ur Specific [place] Urine Protein Urine Glucose (UA) Urine Ketones Urine Blood Urine Nitrite Ur Leukocyte Esterase Urine RBC Urine WBC Ur Squamous Epith Cells Urine Bacteria Hyaline Casts COVID-19 ([facility]) COVID-19 Clin Com Assessment and Plan (1) Small bowel obstruction: Status: Acute Plan 76 yo M with a PMH of CP -- wheel chair bound, chronic constipation who presented to the ED with abdominal pain. CT consistent with constipation and possible pSBO. 1. Severe conspitation and pSBO Gen Surg on board -- recs appreciated; not clinically obstructed; okay to start clear and po bowel regime pain control but currently it is minimal continue IVF 2. HypoMg repleted yesterday, will recheck now likely playing a role in his chronic constipation 3. HTN restart home oral meds 4. Mood continue baseline meds 5. Morbid obesity outpatient f/u with dietary / weight loss program Full Code DVT pptx, subcut heparin requires continued hospitalization due to pSBO which has not fully resolved. he has been initiated on diet and likely require an additional 48 hours of inpatient hospitalization. Quality Stroke Does the patient have a stroke diagnosis?: No VTE Prior VTE?: No VTE Risk Level:: Medical - moderate - high VTE Device Contraindication: Treatment Not Indicated VTE Drug Contraindication: N/A - Med Ordered
[2022-06-14] MEDS: dilTIAZem HCL CD 120 MG CAP.ER.DEG PO (12:43)
[2022-06-14] MEDS: Docusate Sodium 100 MG CAPSULE PO ×2 (12:44→22:02)
[2022-06-14 12:45] LABS: Magnesium 1.9 mg/dL (1.6-2.6)
--- NOTE | 2022-06-14 13:07 | P.PNGS_ITS ---
Subjective Subjective Date of Service: 06/14/22 Interval history: sore on abdomen no nausea or vomitting he says his soreness has been ongoing for almost a year Physical Exam Vital Signs: Vital Signs: Last Vital Signs Temp 98.2 F 06/14/22 11:21 Pulse 89 06/14/22 11:21 Resp 16 06/14/22 11:21 BP 156/73 H 06/14/22 11:21 Pulse Ox 92 06/14/22 11:21 O2 Del Method 06/14/22 11:21 BMI result Body Mass Index 38.4 Const: General: comfortable and no acute distress Resp: Effort & Inspection: normal respiratory effort Cardio: Rate: regular rate GI: Other: hernia on incision, epigastric area reducible, no incarceration Palpation (GI): Soft to palpation, not firm, nontender and no guarding Objective Data Active Medications Acetaminophen (Acetaminophen 325 Mg Tablet) 650 mg PO Q6H PRN PRN Reason: Pain, Mild (Pain Scale 1-3) Last Admin: 06/13/22 22:34 Dose: 650 mg Documented By: PERI Allopurinol (Allopurinol 300 Mg Tablet) 300 mg PO DAILY [facility] Artificial Tears (Artificial Tears 15 Ml Drops) 2 drop EYE-BOTH BID [facility] Bisacodyl (Bisacodyl 10 Mg Supp.Rect) 10 mg [place] DAILY PRN PRN Reason: Constipation Diltiazem HCl (Diltiazem Hcl Cd 120 Mg Cap.Er.Deg) 120 mg PO DAILY [facility]; Protocol Last Admin: 06/14/22 12:43 Dose: 120 mg Documented By: ZACARIAS Docusate Sodium (Docusate Sodium 100 Mg Capsule) 100 mg PO BID [facility] Last Admin: 06/14/22 12:44 Dose: 100 mg Documented By: ZACARIAS Doxazosin Mesylate (Doxazosin Mesylate 2 Mg Tablet) 4 mg PO DAILY [facility]; Protocol Escitalopram Oxalate (Escitalopram Oxalate 10 Mg Tablet) 10 mg PO DAILY [facility] Gabapentin (Gabapentin 100 Mg Capsule) 100 mg PO TID [facility] Heparin Sodium (Porcine) (Heparin Sodium,Porcine 5,000 Unit/Ml Vial) 5,000 unit SUBCUT Q12H [facility] Last Admin: 06/14/22 05:06 Dose: 5,000 unit Documented By: SHALA Lactated Ringer's (Lr) 1,000 mls @ 100 mls/hr IVCONT .Q10H [facility] Last Admin: 06/14/22 03:50 Dose: 100 mls/hr Documented By: MORRINL Metoprolol Tartrate (Metoprolol Tartrate 50 Mg Tablet) 50 mg PO BID [facility]; Protocol Morphine Sulfate (Morphine Sulfate 4 Mg/Ml Cartridge) 4 mg IVPUSH Q4H PRN; Protocol PRN Reason: Pain, Severe (Pain Scale 7-10) Last Admin: 06/14/22 09:20 Dose: 4 mg Documented By: ZACARIAS Omeprazole (Omeprazole 20 Mg Capsule.Dr) 20 mg PO DAILY [facility] Ondansetron HCl (Ondansetron Hcl 4 Mg/2 Ml Vial) 4 mg IVPUSH Q8H PRN PRN Reason: Nausea and Vomiting Polyethylene Glycol (Polyethylene Glycol 3350 17 Gm Powd.Pack) 17 gm PO DAILY PRN PRN Reason: Constipation Pravastatin Sodium (Pravastatin Sodium 10 Mg Tablet) 10 mg PO BEDTIME [facility] Senna (Sennosides 8.6 Mg Tablet) 8.6 mg PO DAILY PRN PRN Reason: Constipation Senna (Sennosides 8.6 Mg Tablet) 17.2 mg PO BEDTIME [facility] Sodium Chloride (0.9 % Sodium Chloride Flush 3 Ml Syringe) 3 ml IVFLUSH QSHIFT [facility] Last Admin: 06/14/22 07:30 Dose: 3 ml Documented By: ZACARIAS Tizanidine HCl (Tizanidine Hcl 4 Mg Tablet) 2 mg PO BEDTIME [facility] Trazodone HCl (Trazodone Hcl 50 Mg Tablet) 50 mg PO BID [facility] Vitamin D (Cholecalciferol (Vitamin D3) 25 Mcg Tablet) 25 mcg PO BID [facility] Labs CBC & Chem 7: 06/14/22 05:43 06/14/22 05:43 Labs: Laboratory Results - last 24 hr 06/13/22 06/13/22 06/13/22 13:13 13:24 13:24 MCV 91.7 MCH 30.2 MCHC 32.9 RDW 13.8 Plt Count 432 H D MPV 10.2 Immature Gran % (Auto) 2.6 H Neut % (Auto) 52.1 Lymph % (Auto) 31.7 [place] % (Auto) 9.1 Eos % (Auto) 3.2 Baso % (Auto) 1.3 Lymph # (Auto) 3.3 [place] # (Auto) 0.9 Eos # (Auto) 0.3 Baso # (Auto) 0.1 Abs Immat Gran (auto) 0.27 H Absolute Neuts (auto) 5.4 Absolute Nucleated RBC 0.000 Nucleated RBC % (auto) 0.0 Smear Tech's Comments VERIFIED PT INR Anion Gap 16 Estim Creat Clear Calc 59.7 Estimated GFR > 60 Random Glucose 117 H Calcium 9.4 Magnesium 1.4 L* Total Bilirubin < 0.2 Direct Bilirubin < 0.2 AST 19 D ALT 20 Alkaline Phosphatase 126 H D Total Protein 7.3 Albumin 3.9 Lipase 34 Urine Color Urine Appearance Urine pH Ur Specific [place] Urine Protein Urine Glucose (UA) Urine Ketones Urine Blood Urine Nitrite Ur Leukocyte Esterase Urine RBC Urine WBC Ur Squamous Epith Cells Urine Bacteria Hyaline Casts COVID-19 ([facility]) Negative COVID-19 [facility] Com See Note 06/13/22 06/13/22 06/14/22 13:24 13:29 05:43 MCV 93.6 MCH 30.8 MCHC 32.9 RDW 13.9 Plt Count 376 MPV 10.2 Immature Gran % (Auto) 2.7 H Neut % (Auto) 43.4 L Lymph % (Auto) 38.6 [place] % (Auto) 9.9 Eos % (Auto) 4.1 H Baso % (Auto) 1.3 Lymph # (Auto) 3.3 [place] # (Auto) 0.9 Eos # (Auto) 0.4 Baso # (Auto) 0.1 Abs Immat Gran (auto) 0.23 H Absolute Neuts (auto) 3.8 Absolute Nucleated RBC 0.000 Nucleated RBC % (auto) 0.0 Smear Tech's Comments PT 11.2 INR 1.0 Anion Gap Estim Creat Clear Calc Estimated GFR Random Glucose Calcium Magnesium Total Bilirubin Direct Bilirubin AST ALT Alkaline Phosphatase Total Protein Albumin Lipase Urine Color Yellow Urine Appearance Clear Urine pH 5.5 Ur Specific [place] 1.020 Urine Protein >=1000 (4+) H Urine Glucose (UA) 100 H Urine Ketones Negative Urine Blood Negative Urine Nitrite Negative Ur Leukocyte Esterase Negative Urine RBC 0-2 Urine WBC 0-5 Ur Squamous Epith Cells 0-2 Urine Bacteria Trace Hyaline Casts 0-2 COVID-19 ([facility]) COVID-19 [facility] Com 06/14/22 05:43 MCV MCH MCHC RDW Plt Count MPV Immature Gran % (Auto) Neut % (Auto) Lymph % (Auto) [place] % (Auto) Eos % (Auto) Baso % (Auto) Lymph # (Auto) [place] # (Auto) Eos # (Auto) Baso # (Auto) Abs Immat Gran (auto) Absolute Neuts (auto) Absolute Nucleated RBC Nucleated RBC % (auto) Smear Tech's Comments PT INR Anion Gap 18 Estim Creat Clear Calc 59.8 Estimated GFR > 60 Random Glucose 128 H Calcium 8.9 Magnesium 1.9 Total Bilirubin Direct Bilirubin AST ALT Alkaline Phosphatase Total Protein Albumin Lipase Urine Color Urine Appearance Urine pH Ur Specific [place] Urine Protein Urine Glucose (UA) Urine Ketones Urine Blood Urine Nitrite Ur Leukocyte Esterase Urine RBC Urine WBC Ur Squamous Epith Cells Urine Bacteria Hyaline Casts COVID-19 ([facility]) COVID-19 Clin Com Procedures Date of Service Date of Service: 06/14/22 Progress Note: A&P Assessment and plan (1) Abdominal pain: Status: Acute Assessment and Plan: clinically not obstructed hernia chronic, reducible clear liquids, advance as tolerated stool softeners sore along old incision - no acute changes no surgical issues at this time Time Spent With Patient Time: Total time spent is greater than 50% in coordination of care (as documented) at patient's floor/unit and/or counseling patient: Quality Stroke Does the patient have a stroke diagnosis?: No VTE Prior VTE?: No VTE Risk Level:: Medical - moderate - high VTE Device Contraindication: Treatment Not Indicated VTE Drug Contraindication: N/A - Med Ordered
[2022-06-14] MEDS: Gabapentin 100 MG CAPSULE PO ×2 (15:23→22:01)
[2022-06-14] MEDS: Acetaminophen 325 MG TABLET 650 MG PO (15:23)
--- NOTE | 2022-06-14 15:42 | MHC.CM.PN ---
CM MET WITH PATIENT. IS A LTC RESIDENT OF [facility]. IS WHEELCHAIR BOUND AT BASELINE, UNABLE TO READ OR WRITE BUT IS A GOOD HISTORIAN. PT BELIEVES HE HAS A COPY OF A HCP, WILL REQUEST FROM FACILITY. NAHUM VAX X 3. PCP AT CENTER IS DR. MCNEAL. DP: PT WISHES TO RETURN TO [facility] AT OR,RETURN REFERRAL SENT, WILL NEED BLS TRANSPORT.
[2022-06-14 16:00] VITALS: BP 164/71; PULSE 92; RESP 17; TEMP 36.4; O2SAT 92
[2022-06-14 20:00] VITALS: BP 165/82; PULSE 90; RESP 17; TEMP 36.6; O2SAT 96
[2022-06-14] MEDS: traZODone HCL 50 MG TABLET PO (22:00)
[2022-06-14] MEDS: TiZANidine HCL 4 MG TABLET 2 MG PO (22:00)
[2022-06-14] MEDS: Cholecalciferol (Vitamin D3) 25 MCG TABLET PO (22:01)
[2022-06-14] MEDS: Sennosides 8.6 MG TABLET 17.2 MG PO (22:01)
[2022-06-14] MEDS: Metoprolol Tartrate 50 MG TABLET PO (22:01)
[2022-06-14] MEDS: Pravastatin Sodium 10 MG TABLET PO (22:01)
[2022-06-14] MEDS: Artificial Tears 15 ML DROPS 2 DROP EYE-BOTH (22:06)
[2022-06-15] VITALS: BP 127/68; PULSE 60; RESP 17; TEMP 36.2; O2SAT 96
[2022-06-15 04:00] VITALS: BP 157/82; PULSE 78; RESP 17; TEMP 36.3; O2SAT 96
[2022-06-15] MEDS: Morphine Sulfate 4 MG/ML CARTRIDGE IVPUSH ×4 (04:59→21:45)
[2022-06-15] MEDS: Heparin Sodium,Porcine 5,000 UNIT/ML VIAL 5000 UNIT SUBCUT ×2 (05:02→16:46)
[2022-06-15 06:14] LABS: Hematocrit 33.6 % (42.0-52.0); Mean Corpuscular HGB Conc 32.7 g/dl (31.0-36.0); Mean Corpuscular Hemoglobin 30.5 pg (27.0-33.0); Mean Corpuscular Volume 93.1 fL (80.0-98.0); Mean Platelet Volume 9.8 fL (9.4-12.4); Platelet Count 340 X10*3/uL (160-400); Red Blood Count 3.61 X10*6/uL (4.60-5.80); White Blood Count 8.9 X10*3/uL (4.8-10.8)
[2022-06-15 06:31] LABS: Anion Gap 17 (12-20); Blood Urea Nitrogen 10 mg/dL (9-16); Carbon Dioxide 24 mmol/L (22-29); Chloride 105 mmol/L (96-108); Estimated Glomerular Filt Rate > 60; Glucose Random 127 mg/dL (60-115); Potassium 3.8 mmol/L (3.3-5.1); Sodium 142 mmol/L (135-145)
[2022-06-15 07:55] VITALS: BP 173/76; PULSE 76; RESP 17; TEMP 36.2; O2SAT 94
[2022-06-15] MEDS: Gabapentin 100 MG CAPSULE PO ×3 (08:13→21:44)
[2022-06-15] MEDS: Omeprazole 20 MG CAPSULE.DR PO (08:13)
[2022-06-15] MEDS: Metoprolol Tartrate 50 MG TABLET PO ×2 (08:13→21:44)
[2022-06-15] MEDS: Escitalopram Oxalate 10 MG TABLET PO (08:14)
[2022-06-15] MEDS: allopurinoL 300 MG TABLET PO (08:14)
[2022-06-15] MEDS: Doxazosin Mesylate 2 MG TABLET 4 MG PO (08:14)
[2022-06-15] MEDS: traZODone HCL 50 MG TABLET PO ×2 (08:14→21:44)
[2022-06-15] MEDS: dilTIAZem HCL CD 120 MG CAP.ER.DEG PO (08:14)
[2022-06-15] MEDS: Cholecalciferol (Vitamin D3) 25 MCG TABLET PO ×2 (08:14→21:44)
[2022-06-15] MEDS: Docusate Sodium 100 MG CAPSULE PO ×2 (08:14→21:44)
[2022-06-15] MEDS: Lactated Ringers 1,000 ML 100 ML IVCONT ×2 (08:14→17:21)
[2022-06-15] MEDS: Acetaminophen 325 MG TABLET 650 MG PO (08:16)
[2022-06-15] MEDS: Artificial Tears 15 ML DROPS 2 DROP EYE-BOTH ×2 (08:19→21:54)
[2022-06-15] MEDS: polyethylene glycoL 3350 17 GM POWD.PACK PO (10:13)
[2022-06-15 11:51] VITALS: BP 143/71; PULSE 67; RESP 16; TEMP 36.3; O2SAT 93
[2022-06-15] MEDS: bisacodyL 10 MG SUPP.RECT PR (12:06)
--- NOTE | 2022-06-15 13:55 | P.PNIM_ITS ---
Subjective Subjective Date of Service: 06/15/22 Interval History: continues to have abd pain. reports pain to be 8/10 .feels that it is more related to his prostate cancer pain. in the suprapubic region. Non-radiating. no nausea or vomiting. Tolerated liquid diet this am. no reported BM overnight pt denies any urinary sx Review of Systems Review of Systems: Yes all other systems are reviewed and are negative Physical Exam Vital Signs: Vital Signs: Last Vital Signs Temp 97.4 F 06/15/22 11:51 Pulse 67 06/15/22 11:51 Resp 16 06/15/22 11:51 BP 143/71 H 06/15/22 11:51 Pulse Ox 93 06/15/22 11:51 O2 Del Method 06/15/22 11:51 BMI result Body Mass Index 38.4 Const: Other: alert and oriented, no acute distress Resp: Other: normal resp eefford. lungs clear GI: Other: abd tender in the lower quadrants. no rebound or guarding hernia in the left abd reducible Extrem: Other: no pedal edema Objective Data Active Medications Acetaminophen (Acetaminophen 325 Mg Tablet) 650 mg PO Q6H PRN PRN Reason: Pain, Mild (Pain Scale 1-3) Last Admin: 06/15/22 08:16 Dose: 650 mg Documented By: ERICA Allopurinol (Allopurinol 300 Mg Tablet) 300 mg PO DAILY [facility] Last Admin: 06/15/22 08:14 Dose: 300 mg Documented By: ERICA Artificial Tears (Artificial Tears 15 Ml Drops) 2 drop EYE-BOTH BID [facility] Last Admin: 06/15/22 08:19 Dose: 2 drop Documented By: ERICA Bisacodyl (Bisacodyl 10 Mg Supp.Rect) 10 mg [place] DAILY [facility] Last Admin: 06/15/22 12:06 Dose: 10 mg Documented By: AUTUMN Diltiazem HCl (Diltiazem Hcl Cd 120 Mg Cap.Er.Deg) 120 mg PO DAILY [facility]; Protocol Last Admin: 06/15/22 08:14 Dose: 120 mg Documented By: ERICA Docusate Sodium (Docusate Sodium 100 Mg Capsule) 100 mg PO BID [facility] Last Admin: 06/15/22 08:14 Dose: 100 mg Documented By: ERICA Doxazosin Mesylate (Doxazosin Mesylate 2 Mg Tablet) 4 mg PO DAILY [facility]; Protocol Last Admin: 06/15/22 08:14 Dose: 4 mg Documented By: ERICA Escitalopram Oxalate (Escitalopram Oxalate 10 Mg Tablet) 10 mg PO DAILY [facility] Last Admin: 06/15/22 08:14 Dose: 10 mg Documented By: ERICA Gabapentin (Gabapentin 100 Mg Capsule) 100 mg PO TID [facility] Last Admin: 06/15/22 08:13 Dose: 100 mg Documented By: ERICA Heparin Sodium (Porcine) (Heparin Sodium,Porcine 5,000 Unit/Ml Vial) 5,000 unit SUBCUT Q12H [facility] Last Admin: 06/15/22 05:02 Dose: 5,000 unit Documented By: GAIL Lactated Ringer's (Lr) 1,000 mls @ 100 mls/hr IVCONT .Q10H [facility] Last Admin: 06/15/22 08:14 Dose: 100 mls/hr Documented By: ERICA Metoprolol Tartrate (Metoprolol Tartrate 50 Mg Tablet) 50 mg PO BID [facility]; Protocol Last Admin: 06/15/22 08:13 Dose: 50 mg Documented By: ERICA Morphine Sulfate (Morphine Sulfate 4 Mg/Ml Cartridge) 4 mg IVPUSH Q4H PRN; Protocol PRN Reason: Pain, Severe (Pain Scale 7-10) Last Admin: 06/15/22 12:02 Dose: 4 mg Documented By: ERICA Omeprazole (Omeprazole 20 Mg Capsule.Dr) 20 mg PO DAILY [facility] Last Admin: 06/15/22 08:13 Dose: 20 mg Documented By: ERICA Ondansetron HCl (Ondansetron Hcl 4 Mg/2 Ml Vial) 4 mg IVPUSH Q8H PRN PRN Reason: Nausea and Vomiting Polyethylene Glycol (Polyethylene Glycol 3350 17 Gm Powd.Pack) 17 gm PO DAILY [facility] Last Admin: 06/15/22 10:13 Dose: 17 gm Documented By: ERICA Pravastatin Sodium (Pravastatin Sodium 10 Mg Tablet) 10 mg PO BEDTIME [facility] Last Admin: 06/14/22 22:01 Dose: 10 mg Documented By: GAIL Senna (Sennosides 8.6 Mg Tablet) 8.6 mg PO DAILY PRN PRN Reason: Constipation Senna (Sennosides 8.6 Mg Tablet) 17.2 mg PO BEDTIME [facility] Last Admin: 06/14/22 22:01 Dose: 17.2 mg Documented By: GAIL Sodium Chloride (0.9 % Sodium Chloride Flush 3 Ml Syringe) 3 ml IVFLUSH QSHIFT [facility] Last Admin: 06/15/22 08:14 Dose: Not Given Documented By: ERICA Non-Admin Reason: IV Running Tizanidine HCl (Tizanidine Hcl 4 Mg Tablet) 2 mg PO BEDTIME [facility] Last Admin: 06/14/22 22:00 Dose: 2 mg Documented By: GAIL Trazodone HCl (Trazodone Hcl 50 Mg Tablet) 50 mg PO BID [facility] Last Admin: 06/15/22 08:14 Dose: 50 mg Documented By: ERICA Vitamin D (Cholecalciferol (Vitamin D3) 25 Mcg Tablet) 25 mcg PO BID [facility] Last Admin: 06/15/22 08:14 Dose: 25 mcg Documented By: ERICA Labs CBC & Chem 7: 06/15/22 05:45 06/15/22 05:45 Labs: Laboratory Results - last 24 hr 06/15/22 06/15/22 05:45 05:45 MCV 93.1 MCH 30.5 MCHC 32.7 RDW 14.0 Plt Count 340 MPV 9.8 Absolute Nucleated RBC 0.000 Nucleated RBC % (auto) 0.0 Anion Gap 17 Estim Creat Clear Calc 70.0 Estimated GFR > 60 Random Glucose 127 H Calcium 9.0 Assessment and Plan (1) Small bowel obstruction: Status: Acute (2) Constipation: Status: Acute (3) Hypomagnesemia: Status: Acute Plan 76 yo M with a PMH of CP -- wheel chair bound, chronic constipation who presented to the ED with abdominal pain. CT consistent with constipation and pos sible pSBO. 1. Severe conspitation and pSBO - Not clinically obstructed per surgery - recommendation to resume clear liquid diet - pt continues to have pain, will not advance diet - bowel regimen scheduled - gen surg following- appreciate recs - continyue pain meds and IVF 2. HypoMg -resolved 3. HTN - stable - resume home meds 4. Mood continue baseline meds 5. Morbid obesity outpatient f/u with dietary / weight loss program Full Code DVT pptx, subcut heparin requires continued hospitalization due to pSBO which has not fully resolved. he has been initiated on diet and likely require an additional 48 hours of inpatient hospitalization Quality Stroke Does the patient have a stroke diagnosis?: No VTE Prior VTE?: No VTE Risk Level:: Medical - moderate - high VTE Device Contraindication: Treatment Not Indicated VTE Drug Contraindication: N/A - Med Ordered
--- NOTE | 2022-06-15 14:55 | P.PNGS_ITS ---
Subjective Subjective Date of Service: 06/15/22 Interval history: feeling better, still with some pain but improved passing gas and had a large bowel movement Physical Exam Vital Signs: Vital Signs: Last Vital Signs Temp 97.4 F 06/15/22 11:51 Pulse 67 06/15/22 11:51 Resp 16 06/15/22 11:51 BP 143/71 H 06/15/22 11:51 Pulse Ox 93 06/15/22 11:51 O2 Del Method 06/15/22 11:51 BMI result Body Mass Index 38.4 GI: Other: abdo is large and soft and tender anterior area diffusely but no guarding or rebound or peritoneal signs active bowel sounds rushes of fluid sounds pt with thin abdo wall but not true hernia Objective Data Active Medications Acetaminophen (Acetaminophen 325 Mg Tablet) 650 mg PO Q6H PRN PRN Reason: Pain, Mild (Pain Scale 1-3) Last Admin: 06/15/22 08:16 Dose: 650 mg Documented By: ERICA Allopurinol (Allopurinol 300 Mg Tablet) 300 mg PO DAILY [facility] Last Admin: 06/15/22 08:14 Dose: 300 mg Documented By: ERICA Artificial Tears (Artificial Tears 15 Ml Drops) 2 drop EYE-BOTH BID [facility] Last Admin: 06/15/22 08:19 Dose: 2 drop Documented By: ERICA Bisacodyl (Bisacodyl 10 Mg Supp.Rect) 10 mg [place] DAILY [facility] Last Admin: 06/15/22 12:06 Dose: 10 mg Documented By: AUTUMN Diltiazem HCl (Diltiazem Hcl Cd 120 Mg Cap.Er.Deg) 120 mg PO DAILY [facility]; Protocol Last Admin: 06/15/22 08:14 Dose: 120 mg Documented By: ERICA Docusate Sodium (Docusate Sodium 100 Mg Capsule) 100 mg PO BID [facility] Last Admin: 06/15/22 08:14 Dose: 100 mg Documented By: ERICA Doxazosin Mesylate (Doxazosin Mesylate 2 Mg Tablet) 4 mg PO DAILY [facility]; Protocol Last Admin: 06/15/22 08:14 Dose: 4 mg Documented By: ERICA Escitalopram Oxalate (Escitalopram Oxalate 10 Mg Tablet) 10 mg PO DAILY [facility] Last Admin: 06/15/22 08:14 Dose: 10 mg Documented By: ERICA Gabapentin (Gabapentin 100 Mg Capsule) 100 mg PO TID [facility] Last Admin: 06/15/22 08:13 Dose: 100 mg Documented By: ERICA Heparin Sodium (Porcine) (Heparin Sodium,Porcine 5,000 Unit/Ml Vial) 5,000 unit SUBCUT Q12H [facility] Last Admin: 06/15/22 05:02 Dose: 5,000 unit Documented By: GAIL Lactated Ringer's (Lr) 1,000 mls @ 100 mls/hr IVCONT .Q10H [facility] Last Admin: 06/15/22 08:14 Dose: 100 mls/hr Documented By: ERICA Metoprolol Tartrate (Metoprolol Tartrate 50 Mg Tablet) 50 mg PO BID [facility]; Protocol Last Admin: 06/15/22 08:13 Dose: 50 mg Documented By: ERICA Morphine Sulfate (Morphine Sulfate 4 Mg/Ml Cartridge) 4 mg IVPUSH Q4H PRN; Protocol PRN Reason: Pain, Severe (Pain Scale 7-10) Last Admin: 06/15/22 12:02 Dose: 4 mg Documented By: ERICA Omeprazole (Omeprazole 20 Mg Capsule.Dr) 20 mg PO DAILY [facility] Last Admin: 06/15/22 08:13 Dose: 20 mg Documented By: ERICA Ondansetron HCl (Ondansetron Hcl 4 Mg/2 Ml Vial) 4 mg IVPUSH Q8H PRN PRN Reason: Nausea and Vomiting Polyethylene Glycol (Polyethylene Glycol 3350 17 Gm Powd.Pack) 17 gm PO DAILY [facility] Last Admin: 06/15/22 10:13 Dose: 17 gm Documented By: ERICA Pravastatin Sodium (Pravastatin Sodium 10 Mg Tablet) 10 mg PO BEDTIME [facility] Last Admin: 06/14/22 22:01 Dose: 10 mg Documented By: GAIL Senna (Sennosides 8.6 Mg Tablet) 8.6 mg PO DAILY PRN PRN Reason: Constipation Senna (Sennosides 8.6 Mg Tablet) 17.2 mg PO BEDTIME [facility] Last Admin: 06/14/22 22:01 Dose: 17.2 mg Documented By: GAIL Sodium Chloride (0.9 % Sodium Chloride Flush 3 Ml Syringe) 3 ml IVFLUSH QSHIFT [facility] Last Admin: 06/15/22 08:14 Dose: Not Given Documented By: ERICA Non-Admin Reason: IV Running Tizanidine HCl (Tizanidine Hcl 4 Mg Tablet) 2 mg PO BEDTIME [facility] Last Admin: 06/14/22 22:00 Dose: 2 mg Documented By: GAIL Trazodone HCl (Trazodone Hcl 50 Mg Tablet) 50 mg PO BID [facility] Last Admin: 06/15/22 08:14 Dose: 50 mg Documented By: ERICA Vitamin D (Cholecalciferol (Vitamin D3) 25 Mcg Tablet) 25 mcg PO BID [facility] Last Admin: 06/15/22 08:14 Dose: 25 mcg Documented By: ERICA Labs CBC & Chem 7: 06/15/22 05:45 06/15/22 05:45 Labs: Laboratory Results - last 24 hr 06/15/22 06/15/22 05:45 05:45 MCV 93.1 MCH 30.5 MCHC 32.7 RDW 14.0 Plt Count 340 MPV 9.8 Absolute Nucleated RBC 0.000 Nucleated RBC % (auto) 0.0 Anion Gap 17 Estim Creat Clear Calc 70.0 Estimated GFR > 60 Random Glucose 127 H Calcium 9.0 Procedures Date of Service Date of Service: 06/15/22 Progress Note: A&P Assessment and plan (1) Small bowel obstruction: Status: Acute (2) Constipation: Status: Acute Plan 76 year old male with multiple previous operations for sbo and adhesions and admissions which have resovled with conservative care - complex abdomen - doing better now passing gas and stool but still feeling sore - there is no indication for surgery now pt needs to stay on a bowel regimen and move as much as possible = limited as in wheelchair advance to light diet solid food tomorrow he understands and agrees with the plan Time Spent With Patient Time: Total time spent is greater than 50% in coordination of care (as documented) at patient's floor/unit and/or counseling patient: Quality Stroke Does the patient have a stroke diagnosis?: No VTE Prior VTE?: No VTE Risk Level:: Medical - moderate - high VTE Device Contraindication: Treatment Not Indicated VTE Drug Contraindication: N/A - Med Ordered
[2022-06-15 16:00] VITALS: BP 146/65; PULSE 69; RESP 18; TEMP 36.6; O2SAT 93
[2022-06-15 20:00] VITALS: BP 155/74; PULSE 78; RESP 18; TEMP 36.6; O2SAT 97
[2022-06-15] MEDS: Sennosides 8.6 MG TABLET 17.2 MG PO (21:43)
[2022-06-15] MEDS: TiZANidine HCL 4 MG TABLET 2 MG PO (21:44)
[2022-06-15] MEDS: Pravastatin Sodium 10 MG TABLET PO (21:44)
[2022-06-15] MEDS: 0.9 % Sodium Chloride Flush 3 ML SYRINGE IVFLUSH (21:49)
[2022-06-16] VITALS: RESP 18
[2022-06-16] MEDS: Morphine Sulfate 4 MG/ML CARTRIDGE IVPUSH (03:26)
[2022-06-16 03:54] VITALS: BP 158/75; PULSE 71; RESP 17; TEMP 36.3; O2SAT 94
[2022-06-16] MEDS: Heparin Sodium,Porcine 5,000 UNIT/ML VIAL 5000 UNIT SUBCUT ×2 (05:32→17:34)
[2022-06-16 08:00] VITALS: BP 170/77; PULSE 71; RESP 18; TEMP 37.1; O2SAT 92
--- NOTE | 2022-06-16 09:24 | P.PNIM_ITS ---
Subjective Subjective Date of Service: 06/16/22 Interval History: continues to have abd pain. reports pain be improving but still feels sore this morning. He moved his bowels last night and has been passing gas. tolerated liquid diet. no nausea or vomiting. pt denies any urinary sx Review of Systems negative except HPI Physical Exam Vital Signs: Vital Signs: Last Vital Signs Temp 98.8 F 06/16/22 08:00 Pulse 71 06/16/22 08:00 Resp 18 06/16/22 08:00 BP 170/77 H 06/16/22 08:00 Pulse Ox 92 06/16/22 08:00 O2 Del Method 06/16/22 08:00 BMI result Body Mass Index 38.4 Const: Other: alert and oriented, no acute distress General: cooperative and no acute distress Orientation/consciousness: patient oriented x3 Resp: Other: normal resp eefford. lungs clear Cardio: Rate: regular rate Rhythm: regular rhythm GI: Other: abd is soft, non-tender, no rebound or guarding Skin: General skin exam: no rashes or lesions noted Neuro: General: patient oriented x3 Extrem: Other: no pedal edema Objective Data Active Medications Acetaminophen (Acetaminophen 325 Mg Tablet) 650 mg PO Q6H PRN PRN Reason: Pain, Mild (Pain Scale 1-3) Last Admin: 06/15/22 08:16 Dose: 650 mg Documented By: ERICA Allopurinol (Allopurinol 300 Mg Tablet) 300 mg PO DAILY [facility] Last Admin: 06/15/22 08:14 Dose: 300 mg Documented By: ERICA Artificial Tears (Artificial Tears 15 Ml Drops) 2 drop EYE-BOTH BID [facility] Last Admin: 06/15/22 21:54 Dose: 2 drop Documented By: GAIL Bisacodyl (Bisacodyl 10 Mg Supp.Rect) 10 mg NM DAILY [facility] Last Admin: 06/15/22 12:06 Dose: 10 mg Documented By: AUTUMN Diltiazem HCl (Diltiazem Hcl Cd 120 Mg Cap.Er.Deg) 120 mg PO DAILY [facility]; Protocol Last Admin: 06/15/22 08:14 Dose: 120 mg Documented By: ERICA Docusate Sodium (Docusate Sodium 100 Mg Capsule) 100 mg PO BID [facility] Last Admin: 06/15/22 21:44 Dose: 100 mg Documented By: GAIL Doxazosin Mesylate (Doxazosin Mesylate 2 Mg Tablet) 4 mg PO DAILY [facility]; Protocol Last Admin: 06/15/22 08:14 Dose: 4 mg Documented By: ERICA Escitalopram Oxalate (Escitalopram Oxalate 10 Mg Tablet) 10 mg PO DAILY [facility] Last Admin: 06/15/22 08:14 Dose: 10 mg Documented By: ERICA Gabapentin (Gabapentin 100 Mg Capsule) 100 mg PO TID [facility] Last Admin: 06/15/22 21:44 Dose: 100 mg Documented By: GAIL Heparin Sodium (Porcine) (Heparin Sodium,Porcine 5,000 Unit/Ml Vial) 5,000 unit SUBCUT Q12H [facility] Last Admin: 06/16/22 05:32 Dose: 5,000 unit Documented By: GAIL Metoprolol Tartrate (Metoprolol Tartrate 50 Mg Tablet) 50 mg PO BID [facility]; Protocol Last Admin: 06/15/22 21:44 Dose: 50 mg Documented By: GAIL Morphine Sulfate (Morphine Sulfate 4 Mg/Ml Cartridge) 4 mg IVPUSH Q4H PRN; Pr otocol PRN Reason: Pain, Severe (Pain Scale 7-10) Last Admin: 06/16/22 03:26 Dose: 4 mg Documented By: GAIL Omeprazole (Omeprazole 20 Mg Capsule.Dr) 20 mg PO DAILY [facility] Last Admin: 06/15/22 08:13 Dose: 20 mg Documented By: ERICA Ondansetron HCl (Ondansetron Hcl 4 Mg/2 Ml Vial) 4 mg IVPUSH Q8H PRN PRN Reason: Nausea and Vomiting Polyethylene Glycol (Polyethylene Glycol 3350 17 Gm Powd.Pack) 17 gm PO DAILY [facility] Last Admin: 06/15/22 10:13 Dose: 17 gm Documented By: ERICA Pravastatin Sodium (Pravastatin Sodium 10 Mg Tablet) 10 mg PO BEDTIME [facility] Last Admin: 06/15/22 21:44 Dose: 10 mg Documented By: GAIL Senna (Sennosides 8.6 Mg Tablet) 8.6 mg PO DAILY PRN PRN Reason: Constipation Senna (Sennosides 8.6 Mg Tablet) 17.2 mg PO BEDTIME [facility] Last Admin: 06/15/22 21:43 Dose: 17.2 mg Documented By: GAIL Sodium Chloride (0.9 % Sodium Chloride Flush 3 Ml Syringe) 3 ml IVFLUSH QSHIFT [facility] Last Admin: 06/15/22 21:49 Dose: 3 ml Documented By: GAIL Tizanidine HCl (Tizanidine Hcl 4 Mg Tablet) 2 mg PO BEDTIME [facility] Last Admin: 06/15/22 21:44 Dose: 2 mg Documented By: GAIL Trazodone HCl (Trazodone Hcl 50 Mg Tablet) 50 mg PO BID [facility] Last Admin: 06/15/22 21:44 Dose: 50 mg Documented By: GAIL Vitamin D (Cholecalciferol (Vitamin D3) 25 Mcg Tablet) 25 mcg PO BID [facility] Last Admin: 06/15/22 21:44 Dose: 25 mcg Documented By: GAIL Labs CBC & Chem 7: 06/15/22 05:45 06/15/22 05:45 Assessment and Plan (1) Small bowel obstruction: Status: Acute (2) Constipation: Status: Acute (3) Hypomagnesemia: Status: Acute (4) Abdominal pain: Status: Acute (5) Abdominal hernia: Status: Acute Plan 76 yo M with a PMH of CP -- wheel chair bound, chronic constipation who presented to the ED with abdominal pain. CT consistent with constipation and possible pSBO. 1. Severe conspitation and pSBO - Not clinically obstructed - surgery evlauated pt, pt has been moving bowel and gas - tolerated liquid diet - will switch to regular bland diet today and evaluate if able to tolerate - bowel regimen scheduled- continue - continue pain meds and IVF- step down 2. HypoMg -resolved 3. HTN - stable - resume home meds 4. Mood continue baseline meds 5. Morbid obesity outpatient f/u with dietary / weight loss program Full Code DVT pptx, subcut heparin Dispo: possible discharge tomorrow if cleared by surgery and able to tolerate regular diet PT eval requires continued hospitalization due to pSBO which has not fully resolved. he has been initiated on diet and likely require an additional 48 hours of inpatient hospitalization Quality Stroke Does the patient have a stroke diagnosis?: No VTE Prior VTE?: No VTE Risk Level:: Medical - moderate - high VTE Device Contraindication: Treatment Not Indicated VTE Drug Contraindication: N/A - Med Ordered
[2022-06-16] MEDS: Doxazosin Mesylate 2 MG TABLET 4 MG PO (09:34)
[2022-06-16] MEDS: bisacodyL 10 MG SUPP.RECT PR (09:34)
[2022-06-16] MEDS: traZODone HCL 50 MG TABLET PO ×2 (09:34→20:52)
[2022-06-16] MEDS: Escitalopram Oxalate 10 MG TABLET PO (09:34)
[2022-06-16] MEDS: Docusate Sodium 100 MG CAPSULE PO ×2 (09:34→20:52)
[2022-06-16] MEDS: Omeprazole 20 MG CAPSULE.DR PO (09:34)
[2022-06-16] MEDS: dilTIAZem HCL CD 120 MG CAP.ER.DEG PO (09:34)
[2022-06-16] MEDS: Cholecalciferol (Vitamin D3) 25 MCG TABLET PO ×2 (09:34→20:52)
[2022-06-16] MEDS: allopurinoL 300 MG TABLET PO (09:35)
[2022-06-16] MEDS: Metoprolol Tartrate 50 MG TABLET PO ×2 (09:35→20:51)
[2022-06-16] MEDS: Gabapentin 100 MG CAPSULE PO ×3 (09:35→20:52)
[2022-06-16] MEDS: 0.9 % Sodium Chloride Flush 3 ML SYRINGE IVFLUSH ×3 (09:37→23:31)
[2022-06-16] MEDS: oxyCODONE HCl Immed Release 5 MG TABLET PO ×4 (09:56→23:28)
[2022-06-16] MEDS: Artificial Tears 15 ML DROPS 2 DROP EYE-BOTH ×2 (09:58→20:54)
[2022-06-16 11:31] VITALS: BP 161/80; PULSE 68; RESP 16; TEMP 36.7; O2SAT 92
--- NOTE | 2022-06-16 12:41 | PM.PNGS ---
Subjective Subjective Date of Service: 06/16/22 Interval history: pt had bowel movement passing gas complaining of abdo pain but tolerating po diet Physical Exam Vital Signs: Vital Signs: Last Vital Signs Temp 98.0 F 06/16/22 11:31 Pulse 68 06/16/22 11:31 Resp 16 06/16/22 11:31 BP 161/80 H 06/16/22 11:31 Pulse Ox 92 06/16/22 11:31 O2 Del Method 06/16/22 11:31 BMI result Body Mass Index 38.4 GI: Other: tender anterior abdomen which is baseline large and distended - good bowel sounds Objective Data Active Medications Acetaminophen (Acetaminophen 325 Mg Tablet) 650 mg PO Q6H PRN PRN Reason: Pain, Mild (Pain Scale 1-3) Last Admin: 06/15/22 08:16 Dose: 650 mg Documented By: ERICA Allopurinol (Allopurinol 300 Mg Tablet) 300 mg PO DAILY [facility] Last Admin: 06/16/22 09:35 Dose: 300 mg Documented By: LONI Artificial Tears (Artificial Tears 15 Ml Drops) 2 drop EYE-BOTH BID [facility] Last Admin: 06/16/22 09:58 Dose: 2 drop Documented By: LONI Bisacodyl (Bisacodyl 10 Mg Supp.Rect) 10 mg [place] DAILY [facility] Last Admin: 06/16/22 09:34 Dose: 10 mg Documented By: LONI Diltiazem HCl (Diltiazem Hcl Cd 120 Mg Cap.Er.Deg) 120 mg PO DAILY [facility]; Protocol Last Admin: 06/16/22 09:34 Dose: 120 mg Documented By: LONI Docusate Sodium (Docusate Sodium 100 Mg Capsule) 100 mg PO BID [facility] Last Admin: 06/16/22 09:34 Dose: 100 mg Documented By: LONI Doxazosin Mesylate (Doxazosin Mesylate 2 Mg Tablet) 4 mg PO DAILY [facility]; Protocol Last Admin: 06/16/22 09:34 Dose: 4 mg Documented By: LONI Escitalopram Oxalate (Escitalopram Oxalate 10 Mg Tablet) 10 mg PO DAILY [facility] Last Admin: 06/16/22 09:34 Dose: 10 mg Documented By: LONI Gabapentin (Gabapentin 100 Mg Capsule) 100 mg PO TID [facility] Last Admin: 06/16/22 09:35 Dose: 100 mg Documented By: LONI Heparin Sodium (Porcine) (Heparin Sodium,Porcine 5,000 Unit/Ml Vial) 5,000 unit SUBCUT Q12H [facility] Last Admin: 06/16/22 05:32 Dose: 5,000 unit Documented By: GAIL Metoprolol Tartrate (Metoprolol Tartrate 50 Mg Tablet) 50 mg PO BID [facility]; Protocol Last Admin: 06/16/22 09:35 Dose: 50 mg Documented By: LONI Omeprazole (Omeprazole 20 Mg Capsule.Dr) 20 mg PO DAILY [facility] Last Admin: 06/16/22 09:34 Dose: 20 mg Documented By: LONI Ondansetron HCl (Ondansetron Hcl 4 Mg/2 Ml Vial) 4 mg IVPUSH Q8H PRN PRN Reason: Nausea and Vomiting Oxycodone HCl (Oxycodone Hcl Immed Release 5 Mg Tablet) 5 mg PO Q4H PRN PRN Reason: Pain, Severe (Pain Scale 7-10) Last Admin: 06/16/22 09:56 Dose: 5 mg Documented By: LONI Polyethylene Glycol (Polyethylene Glycol 3350 17 Gm Powd.Pack) 17 gm PO DAILY [facility] Last Admin: 06/16/22 09:53 Dose: Not Given Documented By: LONI Non-Admin Reason: Patient Refused Pravastatin Sodium (Pravastatin Sodium 10 Mg Tablet) 10 mg PO BEDTIME [facility] Last Admin: 06/15/22 21:44 Dose: 10 mg Documented By: GAIL Senna (Sennosides 8.6 Mg Tablet) 8.6 mg PO DAILY PRN PRN Reason: Constipation Senna (Sennosides 8.6 Mg Tablet) 17.2 mg PO BEDTIME [facility] Last Admin: 06/15/22 21:43 Dose: 17.2 mg Documented By: GAIL Sodium Chloride (0.9 % Sodium Chloride Flush 3 Ml Syringe) 3 ml IVFLUSH QSHIFT [facility] Last Admin: 06/16/22 09:37 Dose: 3 ml Documented By: LONI Tizanidine HCl (Tizanidine Hcl 4 Mg Tablet) 2 mg PO BEDTIME [facility] Last Admin: 06/15/22 21:44 Dose: 2 mg Documented By: GAIL Trazodone HCl (Trazodone Hcl 50 Mg Tablet) 50 mg PO BID [facility] Last Admin: 06/16/22 09:34 Dose: 50 mg Documented By: LONI Vitamin D (Cholecalciferol (Vitamin D3) 25 Mcg Tablet) 25 mcg PO BID [facility] Last Admin: 06/16/22 09:34 Dose: 25 mcg Documented By: LONI Labs CBC & Chem 7: 06/15/22 05:45 06/15/22 05:45 Procedures Date of Service Date of Service: 06/16/22 Progress Note: A&P Assessment and plan (1) Abdominal hernia: Status: Acute Assessment and Plan: pt doing well with regards to obstruction - he always has these episodes of slow transit improves conservatively with some bowel rest. his pain may be because his abdomen is so distended and his abdominal wall muscles are so thin and pulled apart olga anterior mid abdomen as he has nonobstructing hernia with some bowel in it cont with diet and bowel regimen (2) Small bowel obstruction: Status: Acute Time Spent With Patient Time: Total time spent is greater than 50% in coordination of care (as documented) at patient's floor/unit and/or counseling patient: Quality Stroke Does the patient have a stroke diagnosis?: No VTE Prior VTE?: No VTE Risk Level:: Medical - moderate - high VTE Device Contraindication: Treatment Not Indicated VTE Drug Contraindication: N/A - Med Ordered
[2022-06-16 16:16] VITALS: BP 169/74; PULSE 78; RESP 18; TEMP 36.7; O2SAT 94
[2022-06-16] MEDS: Acetaminophen 325 MG TABLET 650 MG PO ×2 (16:51→23:28)
[2022-06-16] MEDS: TiZANidine HCL 4 MG TABLET 2 MG PO (20:51)
[2022-06-16] MEDS: Pravastatin Sodium 10 MG TABLET PO (20:51)
[2022-06-16] MEDS: Sennosides 8.6 MG TABLET 17.2 MG PO (20:52)
[2022-06-16 23:37] VITALS: BP 153/79; PULSE 78; RESP 17; TEMP 36.1; O2SAT 94
[2022-06-17 03:34] VITALS: BP 154/82; PULSE 71; RESP 18; TEMP 36.1; O2SAT 93
[2022-06-17] MEDS: Heparin Sodium,Porcine 5,000 UNIT/ML VIAL 5000 UNIT SUBCUT (05:47)
[2022-06-17] MEDS: oxyCODONE HCl Immed Release 5 MG TABLET PO ×2 (05:47→14:03)
[2022-06-17] MEDS: Acetaminophen 325 MG TABLET 650 MG PO ×2 (05:47→14:04)
[2022-06-17 08:00] VITALS: BP 135/69; PULSE 75; RESP 18; TEMP 36.7; O2SAT 92
[2022-06-17] MEDS: Docusate Sodium 100 MG CAPSULE PO (09:27)
[2022-06-17] MEDS: allopurinoL 300 MG TABLET PO (09:27)
[2022-06-17] MEDS: Cholecalciferol (Vitamin D3) 25 MCG TABLET PO (09:27)
[2022-06-17] MEDS: Metoprolol Tartrate 50 MG TABLET PO (09:27)
[2022-06-17] MEDS: dilTIAZem HCL CD 120 MG CAP.ER.DEG PO (09:27)
[2022-06-17] MEDS: Gabapentin 100 MG CAPSULE PO ×2 (09:28→14:03)
[2022-06-17] MEDS: Escitalopram Oxalate 10 MG TABLET PO (09:28)
[2022-06-17] MEDS: bisacodyL 10 MG SUPP.RECT PR (09:28)
[2022-06-17] MEDS: Omeprazole 20 MG CAPSULE.DR PO (09:28)
[2022-06-17] MEDS: Doxazosin Mesylate 2 MG TABLET 4 MG PO (09:28)
[2022-06-17] MEDS: Artificial Tears 15 ML DROPS 2 DROP EYE-BOTH (09:28)
[2022-06-17] MEDS: traZODone HCL 50 MG TABLET PO (09:28)
[2022-06-17] MEDS: polyethylene glycoL 3350 17 GM POWD.PACK PO (09:28)
[2022-06-17] MEDS: 0.9 % Sodium Chloride Flush 3 ML SYRINGE IVFLUSH (09:29)
[2022-06-17 11:59] VITALS: BP 151/74; PULSE 73; RESP 18; TEMP 36.6; O2SAT 93
--- NOTE | 2022-06-17 12:07 | PM.DS ---
DS: Providers Provider Date of Service: 06/17/22 Date of admission: 06/13/22 17:45 Primary care physician: Josue Jose MD Consults: 06/13/22 16:48 Consult to General Surgery Stat Consulting Provider: Alvaro Jorgensen Reason for consultation: sbo Has provider been notified: Yes DS: Diagnosis Discharge Diagnosis (1) Abdominal hernia: Status: Acute (2) Small bowel obstruction: Status: Acute DS: Summary Hospital Course Hospital Course: History of presenting illness Date of Service: 06/13/22 Chief Complaint: abd pain 76-year-old male with past medical history of asthma, CHF, cerebral palsy wheelchair-bound, CKD, chronic constipation, history of small-bowel obstruction, HTN, prostate cancer, oropharyngeal dysphagia, presents to the hospital with complaints of abdominal pain nausea and vomiting.? Patient reports that his symptoms started about a week ago, associated with diffuse abdominal pain, 5/10, nonradiating.? Patient also reports that he has history of prostate cancer and he reports that he also has pain in the suprapubic region.? He denies any fever, no chills, no shortness of breath, no chest pain, he tells me that he is not sure about his bowel movements sometimes are soft sometimes her heart, his last bowel movement was yesterday, and he says that it was soft.? He denies any new weakness numbness or tingling.? On arrival to the ED patient hemodynamically stable with an elevated blood pressure otherwise no acute abnormality Labs are significant for WBC count of 10.3, hemoglobin 12.4, hematocrit of 37.7, magnesium 1.4, labs otherwise unremarkable UA negative for any acute infection, COVID-[address] shows ventral hernia containing knuckles of small bowel, there is a caliber change of the small bowel in this region questionable for partial small-bowel obstruction, constipation.? Mild wall thickening of the distal colon questionable for steroid Coral colitis.? Bilateral renal cysts, mild cirrhotic changes of the liver Patient was evaluated by surgery, this time not a surgical candidate, he will be admitted for further management. Hospital course 76 yo M with a PMH of CP -- wheel chair bound, chronic constipation who presented to the ED with abdominal pain. CT consistent with constipation and possible pSBO. 1. Patient admitted with severe conspitation and pSBO, patient initially was placed on clear liquid diet seen by General surgery patient moving bowel and gas no surgical intervention required patient has been instructed to take low-calorie diet lose weight that will help in abdominal distension patient diet was gradually advanced that he is tolerating fairly well patient has chronic intermittent abdominal pain and generalized pain he is recommended to minimize use of narcotics that will have help with constipation recommend to continue bowel regimen 2. HypoMg -resolved 3. HTN - few high blood pressure readings likely due to anxiety continue home medications 4. Mood continue baseline meds 5. Morbid obesity outpatient f/u with dietary / weight loss program/low-calorie diet Time Spent with Patient Time attestation: Total time spent providing and/or coordinating discharge services: Discharge coordination time: Greater than 30 minutes Quality: Safe Use of Opioids Does Pt have an Active Cancer Diagnosis on the Problem List?: No Quality: Stroke Does the patient have a stroke diagnosis?: No Physical Exam Vital Signs: Vital Signs: Last Vital Signs Temp 97.9 F 06/17/22 11:59 Pulse 73 06/17/22 11:59 Resp 18 06/17/22 11:59 BP 151/74 H 06/17/22 11:59 Pulse Ox 93 06/17/22 11:59 O2 Del Method 06/17/22 11:59 BMI result Body Mass Index 38.4 Const: Other: General resting comfortably in no acute distress. Neck supple no JVD. CVS regular rate rhythm, Respiratory lungs clear to auscultation, no respiratory distress, no wheeze, no rhonchi. Gastrointestinal abdomen obese, old scars,bowel sounds audible, mild tenderness mid abdomen, no rebound no guarding , no rigidity. Extremities no edema. Neuro nonfocal patient moving all 4 extremity speech clear. Psych appropriate affect DS: Data Data Completed and Pending Completed studies during hospitalization [Text1]: Procedures Excision of Stomach, Pylorus, Via Natural or Artificial Opening Endoscopic, Diagnostic (10/12/21) Discharge Plan Discharge Anticipated Discharge Date/Time: 06/17/22 11:58 Patient Disposition: er [facility] Discharge Diagnosis: Partial small-bowel obstruction Constipation Ventral hernia Referrals: [facility] [Outside] - 1 Week Josue Jose MD [Primary Care Provider] - 1 Week Discharge Medications: Continued multivitamin Tablet 1 tab PO DAILY sennosides [Senna Laxative] 8.6 mg tablet 17.2 mg PO BEDTIME Rx Instructions: HOLD FOR LOOSE STOOL tizanidine 2 mg tablet 1 tab PO BEDTIME pravastatin 10 mg tablet 1 tab PO BEDTIME metoprolol tartrate 50 mg tablet 1 tab PO BID doxazosin 4 mg tablet 1 tab PO DAILY diltiazem HCl 120 mg capsule,extended release 24hr 1 cap PO DAILY allopurinol 300 mg tablet 1 tab PO DAILY gabapentin 100 mg capsule 1 cap PO TID albuterol sulfate 90 mcg/actuation HFA aerosol inhaler 2 puff inhalation Q4H PRN (Reason: Shortness Of Breath) cholecalciferol (vitamin D3) 25 mcg (1,000 unit) tablet 25 mcg PO BID polyvinyl alcohol [Artificial Tears (polyvin alc)] 1.4 % Drops 2 drp OPHTHALMIC (EYE) BID Rx Instructions: while awake hydrocortisone [Preparation H Hydrocortisone] 1 % Cream 1 appl TOPICAL Q6H PRN (Reason: ANAL DISCOMFORT/ITCH/BURN) sennosides-docusate sodium [Senna Plus] 8.6-50 mg Tablet 2 tab-cap PO BID sennosides [senna] 8.6 mg Tablet 8.6 mg PO DAILY PRN (Reason: Constipation) Symproic 0.2 mg Tablet 0.2 mg PO DAILY trazodone 50 mg Tablet 50 mg PO BID bisacodyl 10 mg Suppository 10 mg AR DAILY PRN (Reason: Constipation) Rx Instructions: USE IF SENNA INEFFECTIVE alum-mag hydroxide-simeth [Carmella-Lanta] 200-200-20 mg/5 mL Suspension 20 ml PO Q8H PRN (Reason: GERD) polyethylene glycol 3350 [Miralax] 17 gram Powder In Packet 17 g PO DAILY PRN (Reason: Constipation) polyethylene glycol 3350 [Miralax] 17 gram Powder In Packet 17 g PO DAILY omeprazole 20 mg capsule,delayed release(DR/EC) 20 mg PO DAILY oxycodone 5 mg Tablet 5 mg PO Q8H PRN (Reason: Pain (Scale Score 7-10)) escitalopram oxalate 10 mg tablet 10 mg PO DAILY acetaminophen 325 mg capsule 650 mg PO Q4H PRN (Reason: MILD PAIN/TEMP ) Discontinued oxycodone 5 mg tablet 5 mg PO Q12H Discharge Orders: Discharge Order (Routine); Ordered 06/17/22 Ordered By: Sara Rm Diet: Advance to usual diet Activity on Discharge: As tolerated Stand Alone Forms: Patient Portal Discharge page Care Plan Goals: Partial small-bowel obstruction resolved patient recommended to follow low-calorie diet lose weight, patient has nonobstructing ventral hernia, recommend to minimize narcotic medication Health Concerns: As above Plan of Treatment: Outpatient follow-up with primary care physician Assessment: As above
--- NOTE | 2022-06-17 12:57 | P.PNGS_ITS ---
Subjective Subjective Date of Service: 06/17/22 Interval history: Still complains of soreness on old incision Has BMs and flatus Physical Exam Vital Signs: Vital Signs: Last Vital Signs Temp 97.9 F 06/17/22 11:59 Pulse 73 06/17/22 11:59 Resp 18 06/17/22 11:59 BP 151/74 H 06/17/22 11:59 Pulse Ox 93 06/17/22 11:59 O2 Del Method 06/17/22 11:59 BMI result Body Mass Index 38.4 Const: General: comfortable and no acute distress Resp: Effort & Inspection: normal respiratory effort Cardio: Rate: regular rate GI: Other: Hernia possible, tender along old incision Palpation (GI): Soft to palpation, not firm and no guarding Objective Data Active Medications Acetaminophen (Acetaminophen 325 Mg Tablet) 650 mg PO Q6H PRN PRN Reason: Pain, Mild (Pain Scale 1-3) Last Admin: 06/17/22 05:47 Dose: 650 mg Documented By: JUDI Allopurinol (Allopurinol 300 Mg Tablet) 300 mg PO DAILY [facility] Last Admin: 06/17/22 09:27 Dose: 300 mg Documented By: ROCIO Artificial Tears (Artificial Tears 15 Ml Drops) 2 drop EYE-BOTH BID [facility] Last Admin: 06/17/22 09:28 Dose: 2 drop Documented By: ROCIO Bisacodyl (Bisacodyl 10 Mg Supp.Rect) 10 mg AL DAILY [facility] Last Admin: 06/17/22 09:28 Dose: 10 mg Documented By: ROCIO Diltiazem HCl (Diltiazem Hcl Cd 120 Mg Cap.Er.Deg) 120 mg PO DAILY [facility]; Protocol Last Admin: 06/17/22 09:27 Dose: 120 mg Documented By: ROCIO Docusate Sodium (Docusate Sodium 100 Mg Capsule) 100 mg PO BID [facility] Last Admin: 06/17/22 09:27 Dose: 100 mg Documented By: ROCIO Doxazosin Mesylate (Doxazosin Mesylate 2 Mg Tablet) 4 mg PO DAILY [facility]; Protocol Last Admin: 06/17/22 09:28 Dose: 4 mg Documented By: ROCIO Escitalopram Oxalate (Escitalopram Oxalate 10 Mg Tablet) 10 mg PO DAILY [facility] Last Admin: 06/17/22 09:28 Dose: 10 mg Documented By: ROCIO Gabapentin (Gabapentin 100 Mg Capsule) 100 mg PO TID [facility] Last Admin: 06/17/22 09:28 Dose: 100 mg Documented By: ROCIO Heparin Sodium (Porcine) (Heparin Sodium,Porcine 5,000 Unit/Ml Vial) 5,000 unit SUBCUT Q12H [facility] Last Admin: 06/17/22 05:47 Dose: 5,000 unit Documented By: JUDI Metoprolol Tartrate (Metoprolol Tartrate 50 Mg Tablet) 50 mg PO BID [facility]; Protocol Last Admin: 06/17/22 09:27 Dose: 50 mg Documented By: ROCIO Omeprazole (Omeprazole 20 Mg Capsule.Dr) 20 mg PO DAILY [facility] Last Admin: 06/17/22 09:28 Dose: 20 mg Documented By: ROCIO Ondansetron HCl (Ondansetron Hcl 4 Mg/2 Ml Vial) 4 mg IVPUSH Q8H PRN PRN Reason: Nausea and Vomiting Oxycodone HCl (Oxycodone Hcl Immed Release 5 Mg Tablet) 5 mg PO Q4H PRN PRN Reason: Pain, Severe (Pain Scale 7-10) Last Admin: 06/17/22 05:47 Dose: 5 mg Documented By: JUDI Polyethylene Glycol (Polyethylene Glycol 3350 17 Gm Powd.Pack) 17 gm PO DAILY [facility] Last Admin: 06/17/22 09:28 Dose: 17 gm Documented By: ROCIO Pravastatin Sodium (Pravastatin Sodium 10 Mg Tablet) 10 mg PO BEDTIME [facility] Last Admin: 06/16/22 20:51 Dose: 10 mg Documented By: SHAILESH Senna (Sennosides 8.6 Mg Tablet) 8.6 mg PO DAILY PRN PRN Reason: Constipation Senna (Sennosides 8.6 Mg Tablet) 17.2 mg PO BEDTIME [facility] Last Admin: 06/16/22 20:52 Dose: 17.2 mg Documented By: SHAILESH Sodium Chloride (0.9 % Sodium Chloride Flush 3 Ml Syringe) 3 ml IVFLUSH QSHIFT [facility] Last Admin: 06/17/22 09:29 Dose: 3 ml Documented By: ROCIO Tizanidine HCl (Tizanidine Hcl 4 Mg Tablet) 2 mg PO BEDTIME [facility] Last Admin: 06/16/22 20:51 Dose: 2 mg Documented By: SHAILESH Trazodone HCl (Trazodone Hcl 50 Mg Tablet) 50 mg PO BID [facility] Last Admin: 06/17/22 09:28 Dose: 50 mg Documented By: ROCIO Vitamin D (Cholecalciferol (Vitamin D3) 25 Mcg Tablet) 25 mcg PO BID [facility] Last Admin: 06/17/22 09:27 Dose: 25 mcg Documented By: ROCIO Labs CBC & Chem 7: 06/15/22 05:45 06/15/22 05:45 Procedures Date of Service Date of Service: 06/17/22 Progress Note: A&P Assessment and plan (1) Abdominal pain: Status: Acute Assessment and Plan: Tender along incision Hernia reducible Pain likely from scar, postop changes abdominal No surgical intervention at this time Diet as tolerated Pain management Exam very benign No obstruction clinically Time Spent With Patient Time: Total time spent is greater than 50% in coordination of care (as documented) at patient's floor/unit and/or counseling patient: Quality Stroke Does the patient have a stroke diagnosis?: No VTE Prior VTE?: No VTE Risk Level:: Medical - moderate - high VTE Device Contraindication: Treatment Not Indicated VTE Drug Contraindication: N/A - Med Ordered
[2022-06-17 13:15] LABS: COVID-19 Test Negative (Negative); IDNOW Serial# 9DB6401D
--- NOTE | 2022-06-17 14:09 | MHC.CM.PN ---
PT TO DC BACK TO [facility] TODAY CM UNABLE TO REACH [facility] INFORMED PT WOULD BE RETURNING THIS EVENING THEY CONFIRM ABILITY TO RECEIVE PT BLS TRANSPORT ARRANGED [facility]
[2022-06-17 16:13] VITALS: BP 169/77; PULSE 74; RESP 16; TEMP 36.2; O2SAT 93
--- NOTE | 2022-06-18 12:48 | MHC.CM.PN ---
[facility] summary to be faqxed to their facility at [phone], sent to [facility] at the above fax number
== END 2022-06-17 17:45 | DRG 394 ==
LOC: HO.ED 17:22 → HO.EDOVER 17:50 → HO.S3 06-14 05:50
PROVIDERS: Emergency Medicine; Family Medicine; Admitting Provider Internal Medicine; Emergency Provider Emergency Medicine; PCP Internal Medicine; Visit Provider Hospitalist
DX: K43.6 Other and unspecified ventral hernia with obstruction, without gangrene (principal); I13.0 Hypertensive heart and chronic kidney disease with heart failure and stage 1 through stage 4 chronic kidney disease, or unspecified chronic kidney disease; E83.42 Hypomagnesemia; K59.09 Other constipation; E66.01 Morbid (severe) obesity due to excess calories; Z68.38 Body mass index [BMI] 38.0-38.9, adult; I50.9 Heart failure, unspecified; N18.9 Chronic kidney disease, unspecified; C61 Malignant neoplasm of prostate; G89.3 Neoplasm related pain (acute) (chronic); J45.909 Unspecified asthma, uncomplicated; G80.9 Cerebral palsy, unspecified; Z20.822 Contact with and (suspected) exposure to COVID-19; Z99.3 Dependence on wheelchair; Z87.891 Personal history of nicotine dependence; Z79.899 Other long term (current) drug therapy
CPT/HCPCS: 36415; 74176; 80048; 80076; 81001; 83690; 83735; 85025; 85027; 85610; 87635; 93005; 99285; J2270; J2405; J3475